=== PATIENT | male | born 1950 | race Caucasian/White ===

== ENCOUNTER 2017-10-09 15:56 | Inpatient (IN) | payer OTHER, MEDICARE ==
[2017-10-09] MEDS ORDERED: SODIUM CHLORIDE 1,000 ML IV STA ×2 (15:57→17:31)
--- NOTE | 2017-10-09 16:57 | PDOC ---
History of Present Illness - History of Present Illness Initial Comments: 10/09/17 17:00 The patient is a 66 year old male, accompanied by , with a significant past medical history of non hodgkin's lymphoma (on chemotherapy with last treatment on October 07 (2 days ago), who presents to the emergency department via walk- in with, measured fever of 102.2 F and chills beginning today. The patient states he is on his first cycle of chemotherapy and received his 3rd treatment of chemotherapy , October 07. The patient reports that yesterday he felt generally unwell all day. However, he reports that this morning he measured his temperature and noted a fever of 102.2 F. As per patients , she called the oncologist Dr. Sarath Duvall who advised the patient to come to the ED for evaluation of possible flu and for bloodwork. The patient also reports nausea for the past couple of days (denies vomiting) but reports he does not feel nauseous at presentation. Patients states she also had the flu approx. one month ago and states the patient was given some preventative medications for the flu at that time. He denies any recent headache or dizziness. He denies any recent vomit, diarrhea or constipation. He denies any recent chest pain or shortness of breath. He denies any recent dysuria, frequency, urgency or hematuria. Allergies: NKA Primary Care Physician: Dr. Rodriguez Oncologist: Dr. Sarath Duvall <Cy Fajardo - Last Filed: 10/09/17 18:38> - General History Source: Patient Exam Limitations: No Limitations <Kasey Rasheed - Last Filed: 10/11/17 08:51> - General Chief Complaint: SIRS, Suspected/Possible Stated Complaint: FEVER,CHILLS Time Seen by Provider: 10/09/17 15:57 Past History <Cy Fajardo - Last Filed: 10/09/17 18:38> - Past Medical History Anemia: No Asthma: No Cancer: Yes (lymphoma NHL) Cardiac Disorders: Yes CVA: No COPD: No CHF: No Dementia: No Diabetes: No GI Disorders: Yes (GB) Disorders: No HTN: No Hypercholesterolemia: Yes Liver Disease: No Seizures: No Thyroid Disease: No - Surgical History Abdominal Surgery: Yes (hernia repair) Cardiac Surgery: Yes (05/07 double bypass) Lung Surgery: (LYMP NODE REMOVED CHEST WALL) - Immunization History Td Vaccination: No TDAP Vaccination: No Immunization Up to Date: No - Suicide/Smoking/Psychosocial Hx Smoking History: Never smoked Have you smoked in the past 12 months: No Hx Alcohol Use: No Drug/Substance Use Hx: No Substance Use Type: None Hx Substance Use Treatment: No <WiliKasey - Last Filed: 10/11/17 08:51> - Past Medical History Allergies/Adverse Reactions: Allergies Allergy/AdvReac Type Severity Reaction Status Date / Time No Known Allergies Allergy Verified 10/09/17 15:57 Home Medications: Ambulatory Orders Aspirin [ASA -] 81 mg PO DAILY 06/07/14 Levothyroxine [Synthroid -] 100 mcg PO DAILY 10/09/17 Melatonin 5 mg PO PRN 10/09/17 Levothyroxine [Synthroid -] 100 mcg PO DAILY@0700 tablet 10/11/17 Review of Systems - Review of Systems Comments:: 10/09/17 17:00 GENERAL/CONSTITUTIONAL: (+) Fever. (+) Chills. No weakness. HEAD, EYES, EARS, NOSE AND THROAT: No change in vision. No ear pain or discharge. No sore throat. CARDIOVASCULAR: No chest pain or shortness of breath. RESPIRATORY: No cough, wheezing, or hemoptysis. GASTROINTESTINAL: (+) Nausea (resolved). No vomiting, diarrhea or constipation. GENITOURINARY: No dysuria, frequency, or change in urination. MUSCULOSKELETAL: No joint or muscle swelling or pain. No neck or back pain. SKIN: No rash NEUROLOGIC: No headache, vertigo, loss of consciousness, or change in strength/ sensation. ENDOCRINE: No increased thirst. No abnormal weight change. HEMATOLOGIC/LYMPHATIC: No anemia, easy bleeding, or history of blood clots. ALLERGIC/IMMUNOLOGIC: No hives or skin allergy. <Cy Fajardo - Last Filed: 10/09/17 18:38> *Physical Exam - Vital Signs Last Vital Signs Temp Pulse Resp BP Pulse Ox 98.5 F 69 18 116/59 97 10/09/17 15:56 10/09/17 15:56 10/09/17 15:56 10/09/17 15:56 10/09/17 15:56 - Physical Exam Comments: 10/09/17 17:00 GENERAL: Awake, alert, and fully oriented, in no acute distress HEAD: No signs of trauma EYES: PERRLA, EOMI, sclera anicteric, conjunctiva clear ENT: Auricles normal inspection, hearing grossly normal, nares patent, oropharynx clear without exudates. Moist mucosa NECK: Normal ROM, supple, no lymphadenopathy, JVD, or masses LUNGS: Breath sounds equal, clear to auscultation bilaterally. No wheezes, and no crackles HEART: Regular rate and rhythm, normal S1 and S2, no murmurs, rubs or gallops ABDOMEN: Soft, nontender, normoactive bowel sounds. No guarding, no rebound. No masses EXTREMITIES: Normal range of motion, no edema. No clubbing or cyanosis. No cords, erythema, or tenderness NEUROLOGICAL: Cranial nerves II through XII grossly intact. Normal speech, normal gait SKIN: Warm, Dry, normal turgor, no rashes or lesions noted. <Cy Fajardo - Last Filed: 10/09/17 18:38> - Vital Signs Last Vital Signs Temp Pulse Resp BP Pulse Ox 98.5 F 69 18 116/59 97 10/09/17 15:56 10/09/17 15:56 10/09/17 15:56 10/09/17 15:56 10/09/17 15:56 <Kasey Rasheed - Last Filed: 10/11/17 08:51> ED Treatment Course - LABORATORY CBC & Chemistry Diagram: 10/09/17 16:30 10/09/17 16:30 - Medications Given in the ED: ED Medications Discontinued Medications Generic Name Dose Route Start Last Admin Trade Name Freq PRN Reason Stop Dose Admin Sodium Chloride 1,000 mls @ 1,000 mls/hr 10/09/17 15:57 10/09/17 16:15 Normal Saline - IV 10/09/17 16:56 1,000 mls/hr ASDIR STA Administration <Cy Fajardo - Last Filed: 10/09/17 18:38> - LABORATORY CBC & Chemistry Diagram: 10/10/17 06:35 10/10/17 06:35 - RADIOLOGY Radiology Studies Ordered: Category Date Time Status CHEST X-RAY PORTABLE* [RAD] Stat Radiology 10/09/17 15:57 Taken <Kasey Rasheed - Last Filed: 10/11/17 08:51> Medical Decision Making - Medical Decision Making 10/09/17 17:[address] Duvall at 5:26 pm. Case discussed. Call placed to Dr. Rodriguez at 6:30 pm. Case discussed. <Cy Fajardo - Last Filed: 10/09/17 18:38> - Medical Decision Making 10/09/17 16:51 Mr Byrne is a 66 yo M with a history of NonHodgkins lymphoma currently on Galyza (Chemo) weekly (1st round s/p 3rd cycle) He presents with a complaint of fever Chills and body aches Tmax 102 10/09/17 17:12 EKG:SR, rate of 64bpm, axis nml intervals nml, no st elevation, or depression. Laboratory Tests 10/09/17 10/09/17 16:30 16:30 WBC 4.1 Hgb 15.8 Hct 46.4 Plt Count 119 L Neutrophils % 92.3 H Lymphocytes % 3.5 L Sodium 126 L Potassium 4.5 Chloride 97 L Carbon Dioxide 23 BUN 20 H Creatinine 1.0 Random Glucose 451 H* 10/09/17 17:[address] Duvall He recommends discharge to home Pt is pending UA, Urine culture CXR no consolidation Pt blood glucose elevated Pt has had labile blood sugars related to steroids 10/09/17 18:52 Laboratory Tests 10/09/17 10/09/17 10/09/17 16:30 16:30 17:30 Sodium 126 L Potassium 4.5 Chloride 97 L Carbon Dioxide 23 Anion Gap 6 L BUN 20 H Random Glucose 451 H* Lactic Acid 4.1 H* AST 800 H ALT 760 H Alkaline Phosphatase 160 H Total Protein 5.8 L Urine Blood Negative Urine Nitrite Negative Ur Leukocyte Esterase Negative LFTs doubled over the past 2 days (reviewed with Dr Duvall) Can not discharge to home Will: Start abx Admit to [facility] Case reviewed with PMD and Hospitalist Clinical Impression: Fever, initial presentation Sepsis, initial presentation <Kasey Rasheed - Last Filed: 10/11/17 08:51> *DC/Admit/Observation/Transfer - Attestations Scribe Attestion: 10/09/17 17:01 Documentation prepared by Cy Fajardo, acting as medical assistant cardiology for Kasey Rasheed MD. <Cy Fajardo - Last Filed: 10/09/17 18:38> - Discharge Dispostion Admit: Yes <Kasey Rasheed - Last Filed: 10/11/17 08:51> Diagnosis at time of Disposition: Fever Qualifiers: Fever type: drug-induced Qualified Code(s): R50.2 - Drug induced fever - Discharge Dispostion Condition at time of disposition: Stable
[2017-10-09 17:03] LABS: ACTIVATED PTT 27.8 SECONDS (24.0-38.9)
[2017-10-09 17:05] LABS: ALBUMIN 3.5 g/dl (3.5-5.0); ALK PHOS 160 U/L (32-92); ANION GAP 6 (8-16); BASO % 0.4 % (0-2.0); BILIRUBIN,TOTAL 0.9 mg/dl (0.2-1.0); BLOOD UREA NITROGEN 20 mg/dl (7-18); CALCIUM 8.7 mg/dl (8.4-10.2); CHLORIDE 97 mmol/L (98-107); CO2 23 mmol/L (22-28); EOS % 0.1 % (0-4.5); HEMATOCRIT 46.4 % (35.4-49); HEMOGLOBIN 15.8 GM/dl (11.7-16.9); LYMPH % 3.5 % (8-40); MCH 30.9 pg (25.7-33.7); MCHC 34.1 g/dl (32.0-35.9); MEAN CELL VOLUME 90.6 fl (80-96); MEAN PLT VOLUME 8.1 fl (7.5-11.1); MONO % 3.7 % (3.8-10.2); NEUT % 92.3 % (42.8-82.8); PLATELET COUNT 119 K/MM3 (134-434); POTASSIUM 4.5 mmol/L (3.5-5.1); RBC 5.12 M/mm3 (4.00-5.60); RDW 12.7 % (11.9-15.9); SODIUM 126 mmol/L (136-145); TOT PROT 5.8 g/dl (6.4-8.3); WHITE BLOOD COUNT 4.1 K/mm3 (4.0-10.8)
[2017-10-09 17:08] LABS: INR 1.21 (0.82-1.09); PROTHROMBIN TIME (PATIENT) 13.5 SEC (10.2-13.0)
[2017-10-09 17:10] LABS: GLUCOSE,RANDOM 451 mg/dl (74-106)
[2017-10-09] MEDS ORDERED: INSULIN REGULAR HUMAN 100 UNITS/ML *VIAL IVPUSH ONE (17:31)
[2017-10-09 17:33] LABS: VENOUS PC02 37.4 mmHg (38-52); VENOUS PH 7.35 (7.32-7.42); VENOUS PO2 44.8 mmHg (28-48)
[2017-10-09] MEDS ORDERED: INSULIN REGULAR HUMAN 100 UNITS/ML *VIAL ONE (17:35)
[2017-10-09 17:43] LABS: PH,URINE 5.5 (4.5-8); URINE APPEARANCE Clear; URINE BILIRUBIN Negative (NEGATIVE); URINE BLOOD Negative (NEGATIVE); URINE GLUCOSE (UA) 2+ (NEGATIVE); URINE KETONE Trace (NEGATIVE); URINE LEUK ESTERASE Negative (NEGATIVE); URINE NITRITE Negative (NEGATIVE); URINE PROTEIN Trace (NEGATIVE)
[2017-10-09 17:45] LABS: SGOT/AST 800 U/L (10-42); SGPT/ALT 760 U/L (10-40)
[2017-10-09 17:46] LABS: URINE COLOR YELLOW
[2017-10-09] MEDS ORDERED: PIPERACILLIN/TAZOB 3.375 GM/50 ML PRE-DOCKED IVPB ONE (18:56)
[2017-10-09] MEDS ORDERED: PIPERACILLIN/TAZOBACTAM 3.375 GM VIAL IVPB ONE (19:10)
[2017-10-09 20:07] LABS: ANION GAP 4 (8-16); BLOOD UREA NITROGEN 18 mg/dl (7-18); CHLORIDE 101 mmol/L (98-107); CO2 24 mmol/L (22-28); CREATININE 0.9 mg/dl (0.6-1.3); PHOSPHOROUS 3.3 mg/dl (2.5-4.6); SODIUM 129 mmol/L (136-145); URIC ACID 4.8 mg/dl (2.6-7.2)
[2017-10-09 20:11] LABS: GLUCOSE,RANDOM 332 mg/dl (74-106)
[2017-10-09 22:20] VITALS: BMI 26.6
--- NOTE | 2017-10-09 22:43 | HP ---
Admitting History and Physical - Primary Care Physician PCP: Jovany Rodriguez - Admission Chief Complaint: Fever and Chills History of Present Illness: This is a 66 y/o man with a past medical history of Non-Hodgkin's Lymphoma (on Chemo- Gazyva Infusion, last dose 10/07/17). Who presents to the [facility] ED with fever and chills. Patient reports calling his Oncologist and advised to take dexamethasone 4mg x 2 tabs this am. History Source: Patient, Family Member Limitations to Obtaining History: No Limitations - Past Medical History Cardiovascular: Yes: CAD (s/p bypass last year and stents x2), Hyperlipdemia Pulmonary: Yes: Cancer (NHL) Gastrointestinal: Yes: Other (Cholecystitis) Endocrine: Yes: Hypothyroidism Dermatology: Yes: Other ([place]) - Past Surgical History Past Surgical History: Yes: CABG, Hernia Repair (umbillical), Stent Additional Past Surgical History: Lung Sx- Lymph Node Removed (chest wall) - Smoking History Smoking history: Never smoked Have you smoked in the past 12 months: No Aproximately how many cigarettes per day: 0 - Alcohol/Substance Use Hx Alcohol Use: No History of Substance Use: reports: None - Social History Usual Living Arrangement: Yes: With Spouse ADL: Independent History of Recent Travel: No Home Medications - Allergies Allergies/Adverse Reactions: Allergies Allergy/AdvReac Type Severity Reaction Status Date / Time No Known Allergies Allergy Verified 10/09/17 15:57 - Home Medications Home Medications: Ambulatory Orders Aspirin [ASA -] 81 mg PO DAILY 06/07/14 Levothyroxine [Synthroid -] 100 mcg PO DAILY 10/09/17 Melatonin 5 mg PO PRN 10/09/17 Metformin HCl 750 mg PO BID 10/09/17 Family Disease History - Family Disease History Family History: Unable to Obtain Review of Systems - Review of Systems Constitutional: reports: Chills, Fever Eyes: reports: No Symptoms HENT: reports: No Symptoms Neck: reports: No Symptoms Cardiovascular: reports: No Symptoms Respiratory: reports: No Symptoms Gastrointestinal: reports: No Symptoms Genitourinary: reports: No Symptoms Breasts: reports: No Symptoms Reported Musculoskeletal: reports: No Symptoms Integumentary: reports: No Symptoms Neurological: reports: No Symptoms Endocrine: reports: No Symptoms Hematology/Lymphatic: reports: No Symptoms Psychiatric: reports: No Symptoms Physical Examination Vital Signs: Vital Signs Temperature 97.8 F 10/09/17 21:46 Pulse Rate 73 10/09/17 21:46 Respiratory Rate 18 10/09/17 21:46 Blood Pressure 146/72 10/09/17 21:46 O2 Sat by Pulse Oximetry (%) 97 10/09/17 20:05 Constitutional: Yes: Well Nourished, No Distress, Calm Eyes: Yes: WNL, Conjunctiva Clear, EOM Intact, PERRL HENT: Yes: WNL, Atraumatic, Normocephalic Neck: Yes: WNL, Supple, Trachea Midline Cardiovascular: Yes: WNL, Regular Rate and Rhythm, S1, S2 Respiratory: Yes: WNL, Regular, CTA Bilaterally Gastrointestinal: Yes: WNL, Normal Bowel Sounds, Soft Renal/: Yes: WNL Breast(s): Yes: WNL Musculoskeletal: Yes: WNL Extremities: Yes: WNL Edema: No Peripheral Pulses WNL: Yes Neurological: Yes: WNL, Alert, Oriented ...Motor Strength: WNL Psychiatric: Yes: WNL, Alert, Oriented Labs: CBC, BMP 10/09/17 16:30 10/09/17 19:44 Laboratory Results - last 24 hr 10/09/17 10/09/17 10/09/17 16:30 16:30 16:30 WBC 4.1 RBC 5.12 Hgb 15.8 Hct 46.4 MCV 90.6 MCH 30.9 MCHC 34.1 RDW 12.7 Plt Count 119 L MPV 8.1 Neutrophils % 92.3 H Lymphocytes % 3.5 L Monocytes % 3.7 L Eosinophils % 0.1 Basophils % 0.4 PT with INR 13.5 H INR 1.21 PTT (Actin FS) 27.8 VBG pH 7.35 POC VBG pCO2 37.4 L POC VBG pO2 44.8 Mixed VBG HCO3 20.2 Sodium Potassium Chloride Carbon Dioxide Anion Gap BUN Creatinine Creat Clearance w eGFR Random Glucose Lactic Acid Uric Acid Calcium Phosphorus Total Bilirubin AST ALT Alkaline Phosphatase Total Protein Albumin Urine Color Urine Appearance Urine pH Ur Specific [place] Urine Protein Urine Glucose (UA) Urine Ketones Urine Blood Urine Nitrite Urine Bilirubin Urine Urobilinogen Ur Leukocyte Esterase 10/09/17 10/09/17 10/09/17 16:30 16:30 17:30 WBC RBC Hgb Hct MCV MCH MCHC RDW Plt Count MPV Neutrophils % Lymphocytes % Monocytes % Eosinophils % Basophils % PT with INR INR PTT (Actin FS) VBG pH POC VBG pCO2 POC VBG pO2 Mixed VBG HCO3 Sodium 126 L Potassium 4.5 Chloride 97 L Carbon Dioxide 23 Anion Gap 6 L BUN 20 H Creatinine 1.0 Creat Clearance w eGFR > 60 Random Glucose 451 H* Lactic Acid 4.1 H* Uric Acid Calcium 8.7 Phosphorus Total Bilirubin 0.9 AST 800 H ALT 760 H Alkaline Phosphatase 160 H Total Protein 5.8 L Albumin 3.5 Urine Color Yellow Urine Appearance Clear Urine pH 5.5 Ur Specific [place] 1.020 Urine Protein Trace Urine Glucose (UA) 2+ H Urine Ketones Trace Urine Blood Negative Urine Nitrite Negative Urine Bilirubin Negative Urine Urobilinogen 1.0 Ur Leukocyte Esterase Negative 10/09/17 10/09/17 19:44 19:44 WBC RBC Hgb Hct MCV MCH MCHC RDW Plt Count MPV Neutrophils % Lymphocytes % Monocytes % Eosinophils % Basophils % PT with INR INR PTT (Actin FS) VBG pH POC VBG pCO2 POC VBG pO2 Mixed VBG HCO3 Sodium 129 L Potassium 4.0 Chloride 101 Carbon Dioxide 24 Anion Gap 4 L BUN 18 Creatinine 0.9 Creat Clearance w eGFR Random Glucose 332 H* D Lactic Acid 3.2 H* Uric Acid 4.8 Calcium 8.0 L Phosphorus 3.3 Total Bilirubin AST ALT Alkaline Phosphatase Total Protein Albumin Urine Color Urine Appearance Urine pH Ur Specific [place] Urine Protein Urine Glucose (UA) Urine Ketones Urine Blood Urine Nitrite Urine Bilirubin Urine Urobilinogen Ur Leukocyte Esterase Intake & Output 10/07/17 10/08/17 10/09/17 10/10/17 23:59 23:59 23:59 23:59 Intake Total 2100 Balance 2100 Weight 84.17 kg Current Medications Generic Name Dose Route Start Last Admin Trade Name Freq PRN Reason Stop Dose Admin Aspirin 81 mg 10/10/17 10:00 Asa - PO DAILY ROSLYN Sodium Chloride 1,000 mls @ 42 mls/hr 10/10/17 00:30 10/10/17 00:39 Normal Saline - IV 42 mls/hr ASDIR ROSLYN Administration Levothyroxine Sodium 100 mcg 10/10/17 07:00 Synthroid - PO DAILY@0700 ROSLYN Melatonin 5 mg 10/09/17 22:43 10/09/17 23:31 Melatonin PO 5 mg HS PRN Administration insomnia Imaging - Results Chest X-ray: Image Reviewed EKG: Report Reviewed (NSR, inferior infarct age undetermined QT/QTc 412/425) Problem List - Problems (1) Fever Code(s): R50.9 - FEVER, UNSPECIFIED Qualifiers: Fever type: unspecified Qualified Code(s): R50.9 - Fever, unspecified (2) Abnormal liver enzymes Code(s): R74.8 - ABNORMAL LEVELS OF OTHER SERUM ENZYMES (3) Non-Hodgkin lymphoma of intrathoracic lymph nodes Code(s): C85.92 - NON-HODGKIN LYMPHOMA, UNSPECIFIED, INTRATHORACIC LYMPH NODES (4) HTN (hypertension) Code(s): I10 - ESSENTIAL (PRIMARY) HYPERTENSION (5) Hx of CABG Code(s): Z95.1 - PRESENCE OF AORTOCORONARY BYPASS GRAFT (6) S/P CABG (coronary artery bypass graft) Code(s): Z95.1 - PRESENCE OF AORTOCORONARY BYPASS GRAFT (7) DVT prophylaxis Code(s): OCD9588 - Assessment/Plan This is a 66 y/o man with Non-Hodgkin's Lymphoma, HLD, GI( Cholecystitis), Hypothyroid. Admitted for Fever of Unknown Source, Hyponatremia, Transaminitis, Lactic Acidemia. Plan: 1. Fever - unknown source - Blood Cultures pending - Urine Culture pending - No WBC 2/2 NHL, +Neutrophilia, +LA - NS fluid bolus x2 given in ED - Treated empirically with Zosyn in ED, will continue - Appreciate ID Consult - Monitor CBC, BMP - Monitor vitals 2. Hyponatremia - NS bolus x2 given in ED - Na Deficit 571.2 meq - Continue D5NS - BMP Q4h 3. Transaminitis - Likely secondary to Chemo - T Bili- wnl - Patient denies abdominal pain - Will trend LFTs - Consider GI consult if condition worsens 4. Lactic Acidemia - Hold Metformin - Fluid Resuscitation give in ED - Repeat LA in am - Continue IVF - Monitor vitals 5. NHL - s/p Chemo Gazyva Infusion - Appreciate Oncology consult 6. FEN - D5NS@42ml/hr - Replete Na - Low Cholesterol Diet 7. DVT ppx - SCDs - Lovenox SQ Code Status: Dispo: Requires Inpatient Care Visit type - Emergency Visit Emergency Visit: Yes ED Registration Date: 10/09/17 Care time: The patient presented to the Emergency Department on the above date and was hospitalized for further evaluation of their emergent condition. - New Patient This patient is new to me today: Yes Date on this admission: 10/09/17 - Critical Care Critical Care patient: No Hospitalist Screening - Colonoscopy Questionnaire Colonoscopy Questionnaire: Colonoscopy Questionnaire - Patient: 50 - 75 years old and never had a screening colonoscopy: No History of colon or rectal polyps, or CA: No History of IBD, Crohn's disease or UC: No History of abdominal radiation therapy as a child: No - Relative: 1 with colon or rectal CA, or polyps at age 60 or younger: No Colon or rectal CA diagnosed at age 45 or younger: No Multiple relatives with colon or rectal CA: No - Outcome: Screening Result: Negative Screen
[2017-10-09] MEDS ORDERED: DEXTROSE 5%-NORMAL SALINE 1,000 ML IV SCH (23:15)
[2017-10-09] MEDS: MELATONIN 5 MG TABLETS PO PRN (23:31)
[2017-10-10] MEDS ORDERED: INSULIN (NOVOLOG) ASPART 100 UNITS/ML 10ML VIAL SQ ONE (00:18)
[2017-10-10] MEDS ORDERED: SODIUM CHLORIDE 1,000 ML IV SCH (00:30)
[2017-10-10 02:35] LABS: ANION GAP 11 (8-16); BLOOD UREA NITROGEN 20 mg/dL (7-18); CHLORIDE 101 mmol/L (98-107); CO2 24 mmol/L (21-32); CREATININE 1.1 mg/dL (0.7-1.3); POTASSIUM 3.9 mmol/L (3.5-5.1); SODIUM 136 mmol/L (136-145)
[2017-10-10 02:36] LABS: GLUCOSE,RANDOM 419 mg/dL (74-106)
[2017-10-10] MEDS: LEVOTHYROXINE NA 100 MCG TABLET (FP) PO SCH (06:13)
[2017-10-10 07:59] LABS: BASO % 0.2 % (0-2.0); EOS % 0.1 % (0-4.5); HEMOGLOBIN 14.5 GM/dL (11.7-16.9); LYMPH % 8.1 % (8-40); MCH 31.2 pg (25.7-33.7); MCHC 33.8 g/dl (32.0-35.9); MEAN CELL VOLUME 92.5 fl (80-96); MEAN PLT VOLUME 8.2 fl (7.5-11.1); MONO % 12.2 % (3.8-10.2); NEUT % 79.4 % (42.8-82.8); PLATELET COUNT 98 K/MM3 (134-434); RBC 4.65 M/mm3 (4.00-5.60); RDW 13.4 % (11.9-15.9); WHITE BLOOD COUNT 4.4 K/mm3 (4.0-10.0)
[2017-10-10 08:11] LABS: ANION GAP 7 (8-16); BLOOD UREA NITROGEN 20 mg/dL (7-18); CALCIUM 7.8 mg/dL (8.5-10.1); CHLORIDE 102 mmol/L (98-107); CO2 27 mmol/L (21-32); CREATININE 0.9 mg/dL (0.7-1.3); GLUCOSE,RANDOM 285 mg/dL (74-106); POTASSIUM 3.7 mmol/L (3.5-5.1); SODIUM 136 mmol/L (136-145)
--- NOTE | 2017-10-10 08:18 | PN ---
Progress Note (short form) - Note Progress Note: ID Full note dictated this 66 year old [place]ian male with long history of NHL again recurrent admitted with severe shaking chills and fever started yesterday. On a new biologic begun 3 weeks ago Gazyva and afater the first dose severe rigors needed Benadryl and steroids to treat. Last dose 5 days ago tolerated better however yesterday onset of chills this time fever too. No other respiratory complaints Influenza in his household recent past. No history of TB Microbiology Selected Entries 10/10/17 04:00 Temperature 97.9 F Pulse Rate 56 L Respiratory 18 Rate Blood Pressure 143/76 Laboratory Tests 10/09/17 10/09/17 10/09/17 16:30 16:30 16:30 WBC 4.1 Hgb 15.8 Hct 46.4 Plt Count 119 L Random Glucose 451 H* Lactic Acid 4.1 H* ALT 760 H Total Protein 5.8 L Albumin 3.5 Assessment Given how well patient appears now I have to consider the possibility of a drug reaction to his biologic. His blood cultures are neg this am albeit early. Elevated LFTs noted but he says this is not new fatty liver vs lymphoma ( had liver biopsy) His abd benign hyperglycemia and hyponatremia noted. Lactic acid up Plan Given how well he looks now I am inclined to observe off antibiotics especially as is prelim blood cultures this am no growth I do not think he has the beverly Ivy MD Problem List - Problems (1) Abnormal liver enzymes Code(s): R74.8 - ABNORMAL LEVELS OF OTHER SERUM ENZYMES (2) Fever in adult Code(s): R50.9 - FEVER, UNSPECIFIED (3) Non-Hodgkin lymphoma Code(s): C85.90 - NON-HODGKIN LYMPHOMA, UNSPECIFIED, UNSPECIFIED SITE
[2017-10-10] MEDS: ASPIRIN 81 MG CHEWABLE TABLETS PO SCH (10:58)
--- NOTE | 2017-10-10 12:31 | CONS ---
DATE OF CONSULTATION: DATE OF DICTATION: 10/10/2017 This is a 66-year-old male with a long history of non-Hodgkin lymphoma, who I am asked to evaluate for abrupt onset of fever and chills, which began yesterday. The patient has a long history of non-Hodgkin lymphoma dating back many years, for which he has been previously treated with Rituxan in the distant past. More recently, he had a PET scan, which documented recurrence of lymphoma, for which he was started on a biologic agent 3 weeks ago, Gazyva. He is admitted now after developing abrupt onset of fever and chills approximately 5 days after his 3rd dose of this chemo. After the first dose, he experienced abrupt onset of fevers and shaking chills. For the second dose, he was apparently premedicated with Benadryl and steroids and noted that he tolerated the medication much better. He has an in-law as well as his who were recently treated for the flu. The patient denies any headaches, sore throat, coryza, cough, body aches, abdominal pain, or urinary complaints. He was given empiric antibiotics in the emergency room and had been advised by his oncologist, who we spoke to, to take dexamethasone. This morning, he feels perfectly well. He is in no distress. The patient is diabetic, and when he came to the emergency room, his blood sugar was over 400 and he was noted to be hyponatremic. His liver enzymes, particularly transaminases, were markedly elevated, but the patient says this has been a longstanding issue for which he has had extensive hepatology evaluation including a liver biopsy, and was told that he had a fatty liver. Past medical history includes coronary artery disease, non-Hodgkin lymphoma, status post cholecystectomy, hypothyroidism, history of Kaposi's sarcoma, umbilical hernia repair, and coronary artery bypass graft surgery. MEDICATIONS AT HOME: Aspirin, levothyroxine, melatonin, and metformin. ALLERGY HISTORY: None known. SOCIAL HISTORY: , an [place] immigrant who came to this country when he was 22 and worked for most of his career at [employer]. He does not smoke nor does he drink alcohol or use drugs. FAMILY HISTORY: Noncontributory. REVIEW OF SYSTEMS: Respiratory: No cough, shortness of breath. Cardiac: No chest pain, palpitations, syncope. Gastrointestinal: No abdominal pain, nausea, vomiting, diarrhea. Genitourinary: No dysuria, hematuria, urinary frequency. PHYSICAL EXAMINATION: General: He was an alert male in no acute distress. Vital Signs: Temperature was 97.9, pulse 56, blood pressure 143/76, respirations 18. HEENT: The pharynx was benign without exudate or thrush. Neck: Supple. Lungs: Clear to P&A. Heart: S1, S2. Regular rhythm without murmur. Abdomen: Soft and nontender without hepatosplenomegaly. Extremities: No clubbing, cyanosis or edema. Skin: No rash. White count 4.1, hemoglobin 15.8, platelets 119, with 92% polys. BUN 20, creatinine 1.0, glucose on admission 451, sodium 126, potassium 4.5, AST 800, ALT 760, alkaline phosphatase 160. Urinalysis: Negative leukocyte esterase. Chest x-ray was reviewed, shows no evidence of acute infiltrate. ASSESSMENT: A 66-year-old male with long history of non-Hodgkin lymphoma, now with recurrent lymphoma, status post new treatment, biologic, with Gazyva, a history of severe drug reaction to his initial dose of this new agent, presents now 5 days after his third dose of the same chemotherapy, with similar symptomatology, only he says he has fever, although this was not documented here. He has no other localizing complaints to suggest influenza-like illness and no obvious source of infection on his examination. Moreover, since admission, in this short time, he appears dramatically improved. His blood sugar was out of control on admission and he was noted to be hyponatremic. His liver enzymes are elevated but this may be at least partially chronic and exacerbated by his recent chemotherapy. For now, I am inclined to observe him off all antibiotics, in part knowing that this blood cultures, preliminary this morning, are no growth. He appears well, and would observe for the time being and await further recommendations from both his primary care as well as his oncologist. KRISTIN LUNDBERG M.D. [id number]
[2017-10-10] MEDS: INSULIN SLIDING SCALE (NOVOLOG) 1 VIAL SQ SCH ×3 (12:52→22:20)
--- NOTE | 2017-10-10 13:13 | PN ---
Progress Note (short form) - Note Progress Note: Subjective: The patient was seen and examined at the bedside, he states he is feeling better, denies any fever or chills Current Medications Generic Name Dose Route Start Last Admin Trade Name Booker PRN Reason Stop Dose Admin Aspirin 81 mg 10/10/17 10:00 10/10/17 10:58 Asa - PO 81 mg DAILY ROSLYN Administration Insulin Aspart 1 vial 10/10/17 11:00 10/10/17 12:52 Novolog Vial Sliding Scale - SQ 10 units ACHS ROSLYN Administration Protocol Levothyroxine Sodium 100 mcg 10/10/17 07:00 10/10/17 06:13 Synthroid - PO 100 mcg DAILY@0700 ROSLYN Administration Melatonin 5 mg 10/09/17 22:43 10/09/17 23:31 Melatonin PO 5 mg HS PRN Administration insomnia Objective: Vital Signs Period Temp Pulse Resp BP Sys/[place]era Pulse Ox Last 24 Hr 97.8 F-98.5 F 51-73 16-18 116-146/59-80 96-97 Physical Exam: General: NAD, A&Ox3 Lungs: CTA bilaterally Heart: RRR, S1S2 Abd: Soft, non-tender, non-distended. Normoactive bowel sounds Ext: Warm, well-perfused. 2+ DP/PT bilaterally Neuro: CN 2-12 intact CBCD WBC 4.4 K/mm3 (4.0-10.0) D 10/10/17 06:35 RBC 4.65 M/mm3 (4.00-5.60) D 10/10/17 06:35 Hgb 14.5 GM/dL (11.7-16.9) D 10/10/17 06:35 Hct 43.0 % (35.4-49) D 10/10/17 06:35 MCV 92.5 fl (80-96) 10/10/17 06:35 MCHC 33.8 g/dl (32.0-35.9) 10/10/17 06:35 RDW 13.4 % (11.9-15.9) D 10/10/17 06:35 Plt Count 98 K/MM3 (134-434) L D 10/10/17 06:35 MPV 8.2 fl (7.5-11.1) D 10/10/17 06:35 CMP Sodium 136 mmol/L (136-145) 10/10/17 06:35 Potassium 3.7 mmol/L (3.5-5.1) 10/10/17 06:35 Chloride 102 mmol/L (98-107) 10/10/17 06:35 Carbon Dioxide 27 mmol/L (21-32) 10/10/17 06:35 Anion Gap 7 (8-16) L 10/10/17 06:35 BUN 20 mg/dL (7-18) H 10/10/17 06:35 Creatinine 0.9 mg/dL (0.7-1.3) 10/10/17 06:35 Creat Clearance w eGFR > 60 (>60) 10/09/17 16:30 Random Glucose 285 mg/dL (74-106) H D 10/10/17 06:35 Calcium 7.8 mg/dL (8.5-10.1) L 10/10/17 06:35 Total Bilirubin 0.9 mg/dl (0.2-1.0) 10/09/17 16:30 AST 800 U/L (10-42) H 10/09/17 16:30 ALT 760 U/L (10-40) H 10/09/17 16:30 Alkaline Phosphatase 160 U/L (32-92) H 10/09/17 16:30 Total Protein 5.8 g/dl (6.4-8.3) L 10/09/17 16:30 Albumin 3.5 g/dl (3.5-5.0) 10/09/17 16:30 Assessment: This is a 66 year old male with PMHx of non-hodgkin's lymphona ( last chemo 10/07/17), chronic elevation in liver enzymes, hypothyroidism, CAD s/ p stents, hyperlipidemia, who presented to the ED with chill and fever Plan: 1) Fever, chills, lactic acidosis - Do not appear to have the flu - Observe off abx - Trend lactic acid: per Dr. Duvall, patient does not have elevated lactic acid 2/2 malignancy as outpatient - UA negative - F/u blood cultures - Appreciate ID consult 2) Elevated AST, ALT, Alk phos - May be 2/2 Gazyva - Has had liver biopsy in past that showed no lymphoma of the liver - Continue to trend, f/u outpatient liver specialist 3) Hypothyroidism - Continue synthroid 4) DM - Hold Metformin - BGM ACHS - ISS ACHS 5) F/E/N: - Monitor electrolytes - Diabetic diet 6) Prophylaxis: - OOB ambulating - Hold all chemical DVT prophylaxis / thrombocytopenia 7) Dispo: - Requires continued inpatient care CODE STATUS: FULL CODE Visit type - Emergency Visit Emergency Visit: Yes ED Registration Date: 10/09/17 Care time: The patient presented to the Emergency Department on the above date and was hospitalized for further evaluation of their emergent condition. - New Patient This patient is new to me today: Yes Date on this admission: 10/10/17 - Critical Care Critical Care patient: No
[2017-10-10] MEDS ORDERED: SODIUM CHLORIDE 1,000 ML IV STA (15:59)
[2017-10-10] MEDS: MELATONIN 5 MG TABLETS PO PRN (22:20)
--- NOTE | 2017-10-11 00:11 | EKG ---
Test Reason : Blood Pressure : / mmHG Vent. Rate : 064 BPM Atrial Rate : 064 BPM P-R Int : 180 ms QRS Dur : 082 ms QT Int : 412 ms P-R-T Axes : 018 -13 004 degrees QTc Int : 425 ms NORMAL SINUS RHYTHM INFERIOR INFARCT , AGE UNDETERMINED ABNORMAL ECG WHEN COMPARED WITH ECG OF 14-JUN-2014 08:48, INFERIOR INFARCT IS NOW PRESENT Confirmed by GLENROY HARVEY, JOSUE ([id number]) on 10/11/2017 12:11:22 AM Referred By: ARBEN TRIVEDI Confirmed By:JOSUE TIM MD
[2017-10-11] MEDS: LEVOTHYROXINE NA 100 MCG TABLET (FP) PO SCH (06:15)
[2017-10-11] MEDS: INSULIN SLIDING SCALE (NOVOLOG) 1 VIAL SQ SCH ×2 (06:16→12:02)
--- NOTE | 2017-10-11 08:11 | PN ---
Progress Note, Physician Chief Complaint: 66 y.o M was transferred from [facility] where he presented on 10/09 with chills, rigors, home oral T102.2F. The parient was receiving 3rd course of chemotherapy for his NHL 2 days BR[facility]DER. 2 other courses were also accociated with chills rigors In [facility] -high Lactic noted, Metformin was stopped and after Bld Cx ABX started. Abx were D/C by ID. Blood cx are negative to date, the patient remains afebrile. His High BGM were Rx with Insulin. History of Present Illness: NHL-PET/CT repeated showed recurrence of NHL . On Chemo, steroids, Previous DVT DM type 2 Gradually increasing ALT/AST-s/p biopsy. KS on LE CABG x2, stents. US -thickened GB, sludge. S/P CABG Hypothyroidism - Current Medication List Current Medications: Active Medications Aspirin (Asa -) 81 mg PO DAILY [facility] Last Admin: 10/10/17 10:58 Dose: 81 mg Insulin Aspart (Novolog Vial Sliding Scale -) 1 vial SQ ACHS [facility] PRN Reason: Protocol Last Admin: 10/11/17 06:16 Dose: 2 units Levothyroxine Sodium (Synthroid -) 100 mcg PO DAILY@0700 [facility] Last Admin: 10/11/17 06:15 Dose: 100 mcg Melatonin (Melatonin) 5 mg PO HS PRN PRN Reason: insomnia Last Admin: 10/10/17 22:20 Dose: 5 mg Sitagliptin Phosphate (Januvia -) 100 mg PO DAILY@0700 [facility] - Objective Vital Signs: Vital Signs Temperature 98.9 F 10/11/17 05:00 Pulse Rate 50 L 10/11/17 05:00 Respiratory Rate 20 10/11/17 05:00 Blood Pressure 130/78 10/11/17 05:00 O2 Sat by Pulse Oximetry (%) 95 10/10/17 21:00 Constitutional: Yes: No Distress, Anxious Eyes: Yes: Conjunctiva Clear, EOM Intact HENT: Yes: Atraumatic, Normocephalic Neck: Yes: Supple, Trachea Midline Cardiovascular: Yes: Regular Rate and Rhythm. No: Bradycardia, Tachycardia Respiratory: Yes: Regular, CTA Bilaterally Gastrointestinal: Yes: Normal Bowel Sounds, Soft, Hepatomegaly (2 cm below costal margin). No: Abdomen, Obese, Ascites, Hypoactive Bowel Sounds, Melena, Palpable Mass, Tenderness, Tenderness, Epigastrium, Vomiting ...Rectal Exam: Yes: Deferred Genitourinary: Yes: Other (small inguinal LN) Breast(s): Yes: WNL Extremities: Yes: Other (KS lesions on both LE) Edema: No Peripheral Pulses WNL: Yes Neurological: Yes: Alert, Oriented ...Motor Strength: WNL Psychiatric: Yes: WNL Labs: CBC, BMP 10/10/17 06:35 10/10/17 06:35 INR, PTT INR 1.21 (0.82-1.09) 10/09/17 16:30 Laboratory Results - last 24 hr 10/10/17 10/10/17 10/10/17 06:35 06:35 11:54 Sodium 136 Potassium 3.7 Chloride 102 Carbon Dioxide 27 Anion Gap 7 L BUN 20 H Creatinine 0.9 POC Glucometer 347 Random Glucose 285 H D Lactic Acid 3.3 H* Calcium 7.8 L 10/10/17 10/10/17 10/10/17 14:40 17:27 19:00 Sodium Potassium Chloride Carbon Dioxide Anion Gap BUN Creatinine POC Glucometer 364 Random Glucose Lactic Acid 3.3 H* 2.7 H* Calcium 10/10/17 22:17 Sodium Potassium Chloride Carbon Dioxide Anion Gap BUN Creatinine POC Glucometer 338 Random Glucose Lactic Acid Calcium Problem List - Problems (1) Fever Assessment/Plan: Reaction to chemoRx. Quickly resolved.D/C metformin start Januvia. Will follow with onc Elevated Lactic-but negative Bld cx. No infection. Code(s): R50.9 - FEVER, UNSPECIFIED Qualifiers: Fever type: drug-induced Qualified Code(s): R50.2 - Drug induced fever (2) Abnormal liver enzymes Assessment/Plan: NHL involvment of the liver, previous PANIAGUA. Code(s): R74.8 - ABNORMAL LEVELS OF OTHER SERUM ENZYMES (3) DM type 2 (diabetes mellitus, type 2) Assessment/Plan: Januvia PO Will follow in the office. S/C Insulin after steroidal use Code(s): E11.9 - TYPE 2 DIABETES MELLITUS WITHOUT COMPLICATIONS Qualifiers: Diabetes mellitus technician terminal and repeater insulin use: without chcf use
--- NOTE | 2017-10-11 08:26 | DS ---
Physical Examination Vital Signs: Vital Signs Temperature 98.9 F 10/11/17 05:00 Pulse Rate 50 L 10/11/17 05:00 Respiratory Rate 20 10/11/17 05:00 Blood Pressure 130/78 10/11/17 05:00 O2 Sat by Pulse Oximetry (%) 95 10/10/17 21:00 Constitutional: Yes: No Distress, Anxious Eyes: Yes: Conjunctiva Clear, EOM Intact HENT: Yes: Atraumatic, Normocephalic Neck: Yes: Supple, Trachea Midline Cardiovascular: Yes: Regular Rate and Rhythm. No: Bradycardia, Tachycardia Gastrointestinal: Yes: Normal Bowel Sounds, Hepatomegaly (2 cm) ...Rectal Exam: Yes: Deferred Renal/: No: Anuria Breast(s): Yes: WNL Extremities: Yes: Other (KS lesions) Peripheral Pulses WNL: No Neurological: Yes: WNL, Alert, Oriented ...Motor Strength: WNL Labs: CBC, BMP 10/10/17 06:35 10/10/17 06:35 Discharge Summary Reason For Visit: FEVER,CHILLS Current Active Problems DM type 2 (diabetes mellitus, type 2) (Acute) DVT prophylaxis (Acute) Fever (Acute) Condition: Stable - Instructions Referrals: Jovany Rodriguez MD [Primary Care Provider] - - Home Medications Comprehensive Discharge Medication List: Ambulatory Orders Aspirin [ASA -] 81 mg PO DAILY 06/07/14 Levothyroxine [Synthroid -] 100 mcg PO DAILY 10/09/17 Melatonin 5 mg PO PRN 10/09/17 Metformin HCl 750 mg PO BID 10/09/17
[2017-10-11] MEDS: ASPIRIN 81 MG CHEWABLE TABLETS PO SCH (10:14)
--- NOTE | 2017-10-11 10:44 | PN ---
Progress Note, Physician Chief Complaint: ID Asymptomatic and afebrile Offers no complaints - Current Medication List Current Medications: Active Medications Aspirin (Asa -) 81 mg PO DAILY [facility] Last Admin: 10/11/17 10:14 Dose: 81 mg Insulin Aspart (Novolog Vial Sliding Scale -) 1 vial SQ ACHS [facility] PRN Reason: Protocol Last Admin: 10/11/17 06:16 Dose: 2 units Levothyroxine Sodium (Synthroid -) 100 mcg PO DAILY@0700 [facility] Last Admin: 10/11/17 06:15 Dose: 100 mcg Melatonin (Melatonin) 5 mg PO HS PRN PRN Reason: insomnia Last Admin: 10/10/17 22:20 Dose: 5 mg Sitagliptin Phosphate (Januvia -) 100 mg PO DAILY@0700 [facility] - Objective Vital Signs: Vital Signs Temperature 98.9 F 10/11/17 05:00 Pulse Rate 50 L 10/11/17 05:00 Respiratory Rate 20 10/11/17 05:00 Blood Pressure 130/78 10/11/17 05:00 O2 Sat by Pulse Oximetry (%) 95 10/10/17 21:00 Labs: CBC, BMP 10/10/17 06:35 10/10/17 06:35 INR, PTT INR 1.21 (0.82-1.09) 10/09/17 16:30 Problem List - Problems (1) Abnormal liver enzymes Code(s): R74.8 - ABNORMAL LEVELS OF OTHER SERUM ENZYMES (2) Fever in adult Code(s): R50.9 - FEVER, UNSPECIFIED (3) Non-Hodgkin lymphoma Code(s): C85.90 - NON-HODGKIN LYMPHOMA, UNSPECIFIED, UNSPECIFIED SITE Assessment/Plan Microbiology 10/09/17 17:30 Urine - Urine Clean Catch Urine Culture - Final NO GROWTH OBTAINED 10/09/17 17:30 Blood - Peripheral Venous Blood Culture - Preliminary NO GROWTH OBTAINED AFTER 24 HOURS, INCUBATION TO CONTINUE FOR 4 DAYS. 10/09/17 17:30 Blood - Peripheral Venous Blood Culture - Preliminary NO GROWTH OBTAINED AFTER 24 HOURS, INCUBATION TO CONTINUE FOR 4 DAYS. Laboratory Tests 10/10/17 10/10/17 10/10/17 06:35 06:35 14:40 WBC 4.4 D Plt Count 98 L D Lactic Acid 3.3 H* 3.3 H* 10/10/17 19:00 WBC Plt Count Lactic Acid 2.7 H* Assessment Drug reaction suspected Cultures no growth feels well ( lactic acid noted ? unclear why) Plan Spoke with oncology ok wit discharge and outpt follow up Cata HARVEY
[2017-10-11 14:29] VITALS: BP 146/77; PULSE 60; TEMP 98.4
[2017-10-12] MEDS ORDERED: sitaGLIPtin PHOSPHATE 100 MG TABLET (FP) PO SCH (07:00)
== END 2017-10-11 12:53 | disposition home or self-care (01) | DRG 864 ==
LOC: FER 15:56 → SUPCPDRO 15:56 → J7W 21:46
PROVIDERS: ADMIT Internal Medicine; ATTEND Internal Medicine
DX: R50.2 Drug induced fever (principal); C85.92 Non-Hodgkin lymphoma, unspecified, intrathoracic lymph nodes; E87.1 Hypo-osmolality and hyponatremia; E87.2 Acidosis; I10 Essential (primary) hypertension; Z95.1 Presence of aortocoronary bypass graft; E78.5 Hyperlipidemia, unspecified; E03.9 Hypothyroidism, unspecified; R74.0 Nonspecific elevation of levels of transaminase and lactic acid dehydrogenase [LDH]; R74.8 Abnormal levels of other serum enzymes; E11.9 Type 2 diabetes mellitus without complications; Z79.84 Long term (current) use of oral hypoglycemic drugs; I25.10 Atherosclerotic heart disease of native coronary artery without angina pectoris; D69.6 Thrombocytopenia, unspecified; T45.1X5A Adverse effect of antineoplastic and immunosuppressive drugs, initial encounter
CPT/HCPCS: 36415; 71045-TC-FY; 80048; 80053; 81003; 82803; 82962; 83605; 84100; 84550; 85025; 85610; 85730; 87040; 87086; 93005; 99283-25; J7030

== ENCOUNTER 2017-12-16 17:54 | Inpatient (IN) | payer OTHER, MEDICARE ==
--- NOTE | 2017-12-16 18:12 | PDOC ---
*Physical Exam - Vital Signs Last Vital Signs Temp Pulse Resp BP Pulse Ox 103 F H 79 20 157/70 97 12/16/17 17:58 12/16/17 17:58 12/16/17 17:58 12/16/17 17:58 12/16/17 17:58 - Physical Exam Comments: 12/16/17 18:11 GENERAL: Awake, alert, and fully oriented, in no acute distress HEAD: No signs of trauma, normocephalic, atraumatic EYES: PERRLA, EOMI, sclera anicteric, conjunctiva clear ENT: Auricles normal inspection, hearing grossly normal, nares patent, oropharynx clear without exudates. Moist mucosa NECK: Normal ROM, supple, no lymphadenopathy, JVD, or masses LUNGS: No distress, speaks full sentences, clear to auscultation bilaterally HEART: Regular rate and rhythm, normal S1 and S2, no murmurs, rubs or gallops, peripheral pulses normal and equal bilaterally. ABDOMEN: Soft, nontender, normoactive bowel sounds. No guarding, no rebound. No masses EXTREMITIES : Normal inspection, Normal range of motion, no edema. No clubbing or cyanosis. NEUROLOGICAL: Cranial nerves II through XII grossly intact. Normal speech, normal gait, no focal sensorimotor deficits SKIN: Warm, Dry, normal turgor, no rashes or lesions noted <Jon Apple - Last Filed: 12/16/17 18:42> - Vital Signs Last Vital Signs Temp Pulse Resp BP Pulse Ox 103 F H 79 20 157/70 97 12/16/17 17:58 12/16/17 17:58 12/16/17 17:58 12/16/17 17:58 12/16/17 17:58 <Payam Moreno - Last Filed: 12/16/17 18:55> - Vital Signs Last Vital Signs Temp Pulse Resp BP Pulse Ox 103 F H 79 20 157/70 97 12/16/17 17:58 12/16/17 17:58 12/16/17 17:58 12/16/17 17:58 12/16/17 17:58 <Yon Collins - Last Filed: 12/16/17 19:09> Medical Decision Making - Medical Decision Making 12/16/17 18:11 67 yo M with h/o NHL (1st cycle 4th round chemotherapy/Gazyva transfusion ), Kaposi Sarcoma, transaminitis, NIDDM, HLD, CAD, CABG who p/w fever following d/c from [place] [facility] earlier this afternoon (12-16-17). Temp 1003, elevated fom 100.5 while in ED earlier today, vtials otherwise wnl, A&OX3. Possible neutropenic fever. Currently no other complaints. Dr. Sarath Duvall oncologist and PMD Dr. Rodriguez. Patient given 750 mg oral Levaquin on earlier ED encounter. WBC: 1.5, Neutrophils 73.9, Lactic Acid 2.7. ED Course: Plan to admit to hospital for neutropenic fever. <Jon Apple - Last Filed: 12/16/17 18:42> *DC/Admit/Observation/Transfer - Discharge Dispostion Decision to Admit order: Yes <Jon Apple - Last Filed: 12/16/17 18:42> - Attestations Scribe Attestion: Documentation prepared by Payam Moreno, acting as medical imaging director for Yon Collins MD. <Payam Moreno - Last Filed: 12/16/17 18:55> <Yon Collins - Last Filed: 12/16/17 19:09> Diagnosis at time of Disposition: Neutropenic fever - Discharge Dispostion Condition at time of disposition: Stable - Referrals Referrals: Jovany Rodriguez MD [Primary Care Provider] - - Patient Instructions - Post Discharge Activity Attending Attestation - Resident Resident Name: Jon Apple - ED Attending Attestation I have performed the following: I have examined & evaluated the patient, The case was reviewed & discussed with the resident, I agree w/resident's findings & plan, Exceptions are as noted - HPI HPI: The patient is a 67 year old male with a significant past medical history of cancer (NHL lymphoma), cardiac disorders, hyperlipidemia, and thyroid disease who presents to the emergency department for evaluation of fever T_Max 103. The patient reports being prompted to visit the emergency department from his oncologist Dr. Duvall due to episodes of fever with T_Max 104, to be admitted under Dr. Rosario service. Patient reports associated symptoms of fever and headache. Denies diarrhea, constipation, chills, nausea, and vomiting. Allergies: NKDA Social History: Surgical History: Hernia repair, 05/07 double bypass, Cholecystectomy, and lymph node removed around chest wall. PCP: Dr. Jovany Rodriguez ([phone]) - Physicial Exam PE: GENERAL: Well developed, well nourished. Awake and alert. No acute distress. HEENT: Normocephalic, atraumatic. PERRLA, EOMI. No conjunctival pallor. Sclera are non- icteric. Moist mucous membranes. Oropharynx is clear. NECK: Supple. Full ROM. No JVD. Carotid pulses 2+ and symmetric, without bruits. No thyromegaly. No lymphadenopathy. CARDIOVASCULAR: Regular rate and rhythm. No murmurs, rubs, or gallops. Distal pulses are 2+ and symmetric. PULMONARY: No evidence of respiratory distress. Lungs clear to auscultation bilaterally. No wheezing, rales or rhonchi. ABDOMINAL: Soft. Non-tender. Non-distended. No rebound or guarding. No organomegaly. Normoactive bowel sounds. MUSCULOSKELETAL Normal range of motion at all joints. No bony deformities or tenderness. No CVA tenderness. EXTREMITIES: No cyanosis. No clubbing. No edema. No calf tenderness. SKIN: Warm and dry. Normal capillary refill. No rashes. No jaundice. NEUROLOGICAL: Alert, awake, appropriate. Cranial nerves 2-12 intact. No deficits to light touch and temperature in face, upper extremities and lower extremities. No motor deficits in the in face, upper extremities and lower extremities. Normoreflexic in the upper and lower extremities. Normal speech. Toes are down- going bilaterally. PSYCHIATRIC: Cooperative. Good eye contact. Appropriate mood and affect. <Payam Moreno - Last Filed: 12/16/17 18:55> - ED Attending Attestation I have performed the following: I have examined & evaluated the patient, The case was reviewed & discussed with the resident, I agree w/resident's findings & plan, Exceptions are as noted - Medical Decision Making Patient to be admitted on Dr Lehman service, hospitalist 12/16/17 19:08 <Yon Collins - Last Filed: 12/16/17 19:09>
[2017-12-16] MEDS ORDERED: SODIUM CHLORIDE 1,000 ML IV STA (18:41)
[2017-12-16] MEDS ORDERED: IBUPROFEN 600 MG TABLET (FP) PO ONE ×3 (19:08→19:10)
[2017-12-16 19:16] LABS: HEMATOCRIT 42.3 % (35.4-49); HEMOGLOBIN 14.4 GM/dl (11.7-16.9); MCH 32.1 pg (25.7-33.7); MEAN CELL VOLUME 94.6 fl (80-96); MEAN PLT VOLUME 7.5 fl (7.5-11.1); PLATELET COUNT 127 K/MM3 (134-434); RBC 4.47 M/mm3 (4.00-5.60); RDW 14.2 % (11.9-15.9)
[2017-12-16 19:30] LABS: WHITE BLOOD COUNT 1.5 K/mm3 (4.0-10.8)
[2017-12-16 20:30] LABS: PLATELET ESTIMATE ADEQUATE
[2017-12-16 20:32] LABS: VENOUS PC02 32.6 mmHg (38-52); VENOUS PH 7.46 (7.32-7.42)
[2017-12-16 20:33] LABS: VENOUS PO2 49.3 mmHg (28-48)
[2017-12-16] MEDS ORDERED: CEFEPIME HCL/D5W 2 GM/50 ML BAG IVPB ONE (20:46)
[2017-12-16] MEDS: SODIUM CHLORIDE 1,000 ML IV SCH (21:15)
[2017-12-16] MEDS ORDERED: HEPARIN NA (PORCINE) 5,000 UNITS/ML 1ML VIAL ONE (21:23)
[2017-12-16] MEDS ORDERED: HEMOQUE TEST 1 EACH EACH ONE (21:23)
[2017-12-16] MEDS ORDERED: INSULIN (NOVOLOG) ASPART 100 UNITS/ML 10ML VIAL ONE (21:34)
[2017-12-16] MEDS: INSULIN SLIDING SCALE (NOVOLOG) 1 VIAL SQ SCH (21:38)
[2017-12-16] MEDS ORDERED: HEPARIN NA (PORCINE) 5,000 UNITS/ML 1ML VIAL SQ SCH (22:00)
[2017-12-16 22:32] VITALS: BMI 28.0
[2017-12-16] MEDS: MELATONIN 5 MG TABLETS PO PRN (23:42)
--- NOTE | 2017-12-16 23:56 | HP ---
CHIEF COMPLAINT: fever PCP: Michael Andersen/onc: Eloina HISTORY OF PRESENT ILLNESS: This is a 67 year old male with a significant past medical history of NHL on chemo, last dose 11/30 (Gazyva) who presented to the ED with fever. He had fever on 12/11-12/12 which then resolved but returned yesterday on 12/15 ([id number]). He presented to the ED earlier today for fever but temp was only 100.5, repeat down to 98.5 with no intervention. After discussion with pt's oncologist, decision was made to send pt home on po levaquin. Shortly after pt returned home began with shaking chills and temperature back up to 104. Pt oncologist recommended he return to the ED for admission for IV antibiotics. Pt reports no fever/chills at present but does report recent episode of sweats. He also reports persistent dry cough that is not new. 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 Smoking: quit 30y ago Alcohol: occasional, but none recently Drugs: pt denies Recent Travel: pt denies Family History: mother age 92, DM father age 86, COPD, was a smoker brother s/p CABG in his 60s Allergies No Known Allergies Allergy (Verified 12/16/17 10:11) HOME MEDICATIONS: 3 Medication Instructions Recorded Aspirin [ASA -] 81 mg PO DAILY 06/07/14 Levothyroxine [Synthroid -] 100 mcg PO DAILY@0700 tablet 10/11/17 Sitagliptin Phosphate [Januvia -] 100 mg PO DAILY@0700 #30 ud 10/11/17 Levofloxacin [Levaquin] 750 mg PO ONCE #7 tablet MDD 1 tab 12/16/17 Melatonin 10 mg Tablet 10 mg PO HS PRN 12/16/17 REVIEW OF SYSTEMS CONSTITUTIONAL: Present: fever, chills, diaphoresis Absent: generalized weakness, malaise, loss of appetite, weight change HEENT: Absent: rhinorrhea, nasal congestion, throat pain, throat swelling, difficulty swallowing, mouth swelling, ear pain, eye pain, visual changes CARDIOVASCULAR: Absent: chest pain, syncope, palpitations, irregular heart rate, lightheadedness , peripheral edema RESPIRATORY: Absent: cough, shortness of breath, dyspnea with exertion, orthopnea, wheezing, stridor, hemoptysis GASTROINTESTINAL: Absent: abdominal pain, abdominal distension, nausea, vomiting, diarrhea, constipation, melena, hematochezia GENITOURINARY: Absent: dysuria, frequency, urgency, hesitancy, hematuria, flank pain, genital pain MUSCULOSKELETAL: Absent: myalgia, arthralgia, joint swelling, back pain, neck pain SKIN: Absent: rash, itching, pallor HEMATOLOGIC/IMMUNOLOGIC: Absent: easy bleeding, easy bruising, lymphadenopathy, frequent infections ENDOCRINE: Absent: unexplained weight gain, unexplained weight loss, heat intolerance, cold intolerance NEUROLOGIC: Absent: headache, focal weakness or paresthesias, dizziness, unsteady gait, seizure, mental status changes, bladder or bowel incontinence PSYCHIATRIC: Absent: anxiety, depression, suicidal or homicidal ideation, hallucinations. PHYSICAL EXAMINATION Vital Signs - 24 hr 3 12/16/17 12/16/17 12/16/17 17:58 19:57 21:04 Temperature 103 F H 102.9 F H 101.3 F H Pulse Rate 79 Pulse Rate [ 67 Left] Respiratory 20 Rate Blood Pressure 157/70 Blood Pressure 102/43 [Right Arm] O2 Sat by Pulse 97 96 Oximetry (%) 3 12/16/17 23:42 Temperature 97.9 F Pulse Rate 56 L Pulse Rate [ Left] Respiratory 17 Rate Blood Pressure 99/50 Blood Pressure [Right Arm] O2 Sat by Pulse 95 Oximetry (%) GENERAL: Awake, alert, and fully oriented, in no acute distress. HEAD: Normal with no signs of trauma. EYES: Pupils equal, round and reactive to light, extraocular movements intact, sclera anicteric, conjunctiva clear. No lid lag. EARS, NOSE, THROAT: Ears normal, nares patent, oropharynx clear without exudates. Moist mucous membranes. NECK: Normal range of motion, supple without lymphadenopathy, JVD, or masses. LUNGS: Breath sounds equal, clear to auscultation bilaterally. No wheezes, and no crackles. No accessory muscle use. HEART: Regular rate and rhythm, normal S1 and S2 without murmur, rub or gallop. ABDOMEN: Soft, nontender, not distended, normoactive bowel sounds, no guarding, no rebound, no masses. No hepatomegaly or splenomegaly. MUSCULOSKELETAL: Normal range of motion at all joints. No bony deformities or tenderness. No CVA tenderness. UPPER EXTREMITIES: 2+ pulses, warm, well-perfused. No cyanosis. No clubbing. No peripheral edema. LOWER EXTREMITIES: 2+ pulses, warm, well-perfused. No calf tenderness. No peripheral edema. NEUROLOGICAL: Cranial nerves II-XII intact. Normal speech. Normal gait. PSYCHIATRIC: Cooperative. Good eye contact. Appropriate mood and affect. SKIN: Warm, dry, normal turgor, no rashes or lesions noted, normal capillary refill. Laboratory Results - last 24 hr 3 12/16/17 12/16/17 12/16/17 12/16/17 18:07 18:07 18:07 21:30 WBC 1.5 L* RBC 4.47 Hgb 14.4 Hct 42.3 MCV 94.6 MCH 32.1 MCHC 34.0 RDW 14.2 Plt Count 127 L MPV 7.5 Neutrophils % 52.0 D Lymphocytes % 20.0 D Monocytes % 8.0 Eosinophils % 4.0 D Platelet Estimate Adequate VBG pH 7.46 H POC VBG pCO2 32.6 L POC VBG pO2 49.3 H Mixed VBG HCO3 23.0 POC Glucometer [phone] Lactic Acid 2.5 H* ECG Normal sinus rhythm vent rate 62, QTC 410 Inferior infarct, age undetermined No acute ST/T wave changes Radiology Report CXR PA/Lat 12/16/17 10:51 IMPRESSION: No significant interval change or acute lung disease is present Reported By: Nat Crawley MD 12/16/17 1106 ASSESSMENT/PLAN: 67yM with PMH NHL on chemo, transaminitis, NIDDM, HLD, CAD s/p CABG and stent placement, hypothyroidism, cholecystitis presented to the ED with fever. Neutropenic fever - cefepime 2g IVPB q8h - ID consult - d/w pt's covering oncologist, Dr. Aguilera who recommended neupogen, same ordered - NS @ 125cc/hr lactic acidosis - NS @ 125cc/hr, repeat in am mild hyponatremia - cont IVF, repeat BMP in am CAD/HLD - cont ASA, statin contraindicated in transaminitis NIDDM - will hold januvia while inpatient - BGM AC/HS with novolog SS hypothyroid - cont synthroid DVT PPX - heparin 5000u SC TID FEN - NS @ 125cc/hr - bmp in am - neutropenic diet as tolerated Dispo: Pt currently requires further inpatient management of his emergent condition. Visit type - Emergency Visit Emergency Visit: Yes ED Registration Date: 12/16/17 Care time: The patient presented to the Emergency Department on the above date and was hospitalized for further evaluation of their emergent condition. - New Patient This patient is new to me today: Yes Date on this admission: 12/16/17 - Critical Care Critical Care patient: No Hospitalist Screening - Colonoscopy Questionnaire Colonoscopy Questionnaire: Colonoscopy Questionnaire - Patient: 50 - 75 years old and never had a screening colonoscopy: No History of colon or rectal polyps, or CA: Yes History of IBD, Crohn's disease or UC: No History of abdominal radiation therapy as a child: No - Relative: 1 with colon or rectal CA, or polyps at age 60 or younger: No Colon or rectal CA diagnosed at age 45 or younger: No Multiple relatives with colon or rectal CA: No - Outcome: Screening Result: Positive Screen
[2017-12-17] MEDS ORDERED: TBO-FILGRASTIM 480 MCG/0.8 ML DISP.SYRIN SQ ONE (00:26)
[2017-12-17] MEDS ORDERED: CEFEPIME HCL/D5W 2 GM/50 ML BAG IVPB ONE (05:00)
[2017-12-17] MEDS ORDERED: HEPARIN NA (PORCINE) 5,000 UNITS/ML 1ML VIAL SQ SCH (06:00)
[2017-12-17] MEDS: INSULIN SLIDING SCALE (NOVOLOG) 1 VIAL SQ SCH ×4 (06:28→21:49)
[2017-12-17] MEDS: LEVOTHYROXINE NA 100 MCG TABLET (FP) PO SCH (06:28)
--- NOTE | 2017-12-17 07:19 | PN ---
Physical Exam: SUBJECTIVE: Patient seen and examined, Patient reports feeling well denies any tactile fever tolerating diet, patient denies any abdominal pain. OBJECTIVE: Patient is a 67 year old male with a significant past medical history of NHL on chemo, last dose 11/30 (Gazyva), NHLympoma first diagnosed 2004 , transaminitis/fatty liver, NIDDM, HLD, CAD, CABG, hypothyroidism, cholecystitis. Patient was admitted from the emergency Department for neutropenic fever Vital Signs Period Temp Pulse Resp BP Sys/Aguilera Pulse Ox Last 24 Hr 97.6 F-103 F 51-79 17-20 99-157/43-70 95-99 GENERAL: The patient is awake, alert, and fully oriented, in no acute distress. HEAD: Normal with no signs of trauma. EYES: PERRL, extraocular movements intact, sclera anicteric, conjunctiva clear. No ptosis. ENT: Ears normal, nares patent, oropharynx clear without exudates, moist mucous membranes. NECK: Trachea midline, full range of motion, supple. LUNGS: Breath sounds equal, clear to auscultation bilaterally, no wheezes, no crackles, no accessory muscle use. HEART: Regular rate and rhythm, S1, S2 without murmur, rub or gallop. ABDOMEN: Soft, nontender, nondistended, normoactive bowel sounds, no guarding, no rebound, no hepatosplenomegaly, no masses. EXTREMITIES: 2+ pulses, warm, well-perfused, no edema. NEUROLOGICAL: Cranial nerves II through XII grossly intact. Normal speech, gait not observed. PSYCH: Normal mood, normal affect. SKIN: Warm, dry, normal turgor, no rashes or lesions noted Laboratory Results - last 24 hr CBC WBC 2.2 K/mm3 (4.0-10.8) L D 12/17/17 07:20 RBC 4.18 M/mm3 (4.00-5.60) 12/17/17 07:20 Hgb 13.8 GM/dl (11.7-16.9) 12/17/17 07:20 Hct 39.8 % (35.4-49) 12/17/17 07:20 MCV 95.4 fl (80-96) 12/17/17 07:20 MCH 33.2 pg (25.7-33.7) 12/17/17 07:20 MCHC 34.8 g/dl (32.0-35.9) 12/17/17 07:20 RDW 14.3 % (11.9-15.9) 12/17/17 07:20 Plt Count 96 K/MM3 (134-434) L D 12/17/17 07:20 MPV 7.4 fl (7.5-11.1) L 12/17/17 07:20 Neutrophils % 59.8 % (42.8-82.8) 12/17/17 07:20 Lymphocytes % 20.9 % (8-40) 12/17/17 07:20 Monocytes % 16.2 % (3.8-10.2) H D 12/17/17 07:20 Eosinophils % 2.3 % (0-4.5) 12/17/17 07:20 Basophils % 0.8 % (0-2.0) 12/17/17 07:20 Platelet Estimate Adequate 12/16/17 18:07 CMP Sodium 135 mmol/L (136-145) L 12/17/17 07:20 Potassium 4.2 mmol/L (3.5-5.1) 12/17/17 07:20 Chloride 108 mmol/L (98-107) H 12/17/17 07:20 Carbon Dioxide 25 mmol/L (22-28) 12/17/17 07:20 Anion Gap 2 (8-16) L 12/17/17 07:20 BUN 11 mg/dl (7-18) 12/17/17 07:20 Creatinine 0.9 mg/dl (0.6-1.3) 12/17/17 07:20 Creat Clearance w eGFR > 60 (>60) 12/17/17 07:20 POC Glucometer 245 UNITS (80-120) 12/17/17 11:30 Random Glucose 141 mg/dl (74-106) H D 12/17/17 07:20 Lactic Acid 1.1 mmol/L (0.0-2.0) 12/17/17 07:20 Calcium 7.8 mg/dl (8.4-10.2) L 12/17/17 07:20 Phosphorus 2.4 mg/dl (2.5-4.6) L D 12/17/17 07:20 Magnesium 1.5 mg/dL (1.8-2.4) L 12/17/17 07:20 Total Bilirubin 1.0 mg/dl (0.2-1.0) D 12/17/17 07:20 AST 333 U/L (10-42) H 12/17/17 07:20 ALT 303 U/L (10-40) H 12/17/17 07:20 Alkaline Phosphatase 110 U/L (32-92) H 12/17/17 07:20 Total Protein 4.3 g/dl (6.4-8.3) L D 12/17/17 07:20 Albumin 2.4 g/dl (3.5-5.0) L D 12/17/17 07:20 12/16/17 12/17/17 21:30 06:23 WBC RBC Hgb Hct MCV MCH MCHC RDW Plt Count MPV Neutrophils % Lymphocytes % Monocytes % Eosinophils % Platelet Estimate VBG pH POC VBG pCO2 POC VBG pO2 Mixed VBG HCO3 POC Glucometer [id number] 139 Lactic Acid Active Medications Generic Name Dose Route Start Last Admin Trade Name Westleyq PRN Reason Stop Dose Admin Aspirin 81 mg 12/17/17 10:00 Asa - PO DAILY ROSLYN Heparin Sodium (Porcine) 5,000 unit 12/17/17 06:00 12/17/17 05:41 Heparin - SQ 5,000 unit TID ROSLYN Administration Sodium Chloride 1,000 mls @ 125 mls/hr 12/16/17 21:00 12/16/17 21:15 Normal Saline - IV 125 mls/hr ASDIR ROSLYN Administration Insulin Aspart 1 vial 12/16/17 22:00 12/16/17 21:38 Novolog Vial Sliding Scale - SQ 2 units HS ROSLYN Administration Protocol Insulin Aspart 1 vial 12/17/17 07:00 12/17/17 06:28 Novolog Vial Sliding Scale - SQ Not Given TIDAC [facility] Protocol Levothyroxine Sodium 100 mcg 12/17/17 07:00 12/17/17 06:28 Synthroid - PO 100 mcg DAILY@0700 ROSLYN Administration Melatonin 10 mg 12/16/17 22:44 12/16/17 23:42 Melatonin PO 10 mg HS PRN Administration INSOMNIA ECG Normal sinus rhythm vent rate 62, QTC 410 Inferior infarct, age undetermined No acute ST/T wave changes Radiology Report CXR PA/Lat 12/16/17 10:51 IMPRESSION: No significant interval change or acute lung disease is present Reported By: Nat Crawley MD 12/16/17 1106 ASSESSMENT/PLAN: 1) heme/onc Neutropenic fever - tmax 101.3, neupogen given 12/16, WBC 2.2, lactic acidosis resolved pending blood and urine cultures - continue cefepime 2 g every 8 hours upon the recommendation of infectious disease - Appreciate oncology input Dr. Aguilera, patient's private oncologist 2) cardiovascular CAD/HLD - cont ASA, statin contraindicated in transaminitis 3) endo NIDDM - restert elinor, BGM AC/HS with novolog SS hypothyroid - cont synthroid DVT PPX - scd/july FEN - NS @ 75cc/hr - bmp in am - neutropenic diet as tolerated Dispo: Pt currently requires further inpatient management of his emergent conditio Visit type - Emergency Visit Emergency Visit: Yes ED Registration Date: 12/16/17 Care time: The patient presented to the Emergency Department on the above date and was hospitalized for further evaluation of their emergent condition. - New Patient This patient is new to me today: Yes Date on this admission: 12/17/17 - Critical Care Critical Care patient: No - Discharge Referral Referred to [facility] Med P.C.: No
[2017-12-17 08:11] LABS: BASO % 0.8 % (0-2.0); EOS % 2.3 % (0-4.5); HEMATOCRIT 39.8 % (35.4-49); HEMOGLOBIN 13.8 GM/dl (11.7-16.9); LYMPH % 20.9 % (8-40); MCH 33.2 pg (25.7-33.7); MCHC 34.8 g/dl (32.0-35.9); MEAN CELL VOLUME 95.4 fl (80-96); MEAN PLT VOLUME 7.4 fl (7.5-11.1); MONO % 16.2 % (3.8-10.2); NEUT % 59.8 % (42.8-82.8); PLATELET COUNT 96 K/MM3 (134-434); RBC 4.18 M/mm3 (4.00-5.60); RDW 14.3 % (11.9-15.9); WHITE BLOOD COUNT 2.2 K/mm3 (4.0-10.8)
[2017-12-17 08:42] LABS: ALBUMIN 2.4 g/dl (3.5-5.0); ALK PHOS 110 U/L (32-92); ANION GAP 2 (8-16); BLOOD UREA NITROGEN 11 mg/dl (7-18); CALCIUM 7.8 mg/dl (8.4-10.2); CHLORIDE 108 mmol/L (98-107); CO2 25 mmol/L (22-28); CREATININE 0.9 mg/dl (0.6-1.3); GLUCOSE,RANDOM 141 mg/dl (74-106); MAGNESIUM 1.5 mg/dL (1.8-2.4); PHOSPHOROUS 2.4 mg/dl (2.5-4.6); POTASSIUM 4.2 mmol/L (3.5-5.1); SGPT/ALT 303 U/L (10-40); SODIUM 135 mmol/L (136-145); TOT PROT 4.3 g/dl (6.4-8.3)
[2017-12-17] MEDS ORDERED: MAGNESIUM SULFATE IN WATER 2 GM/50 ML IVPB IVPB ONE (09:03)
[2017-12-17 09:13] LABS: SGOT/AST 333 U/L (10-42)
[2017-12-17] MEDS ORDERED: PT OWN MED DRAWER 7, Y5N ONE ×2 (10:08→17:10)
[2017-12-17] MEDS: ASPIRIN 81 MG CHEWABLE TABLETS PO SCH (10:12)
[2017-12-17] MEDS: CEFEPIME 2 GM in DEXTROSE 5%-WATER 100 ML IVPB SCH ×2 (10:13→17:14)
[2017-12-17] MEDS: NAPH,MB-DB/K PH,MBDB POWDER PACKET PO SCH ×2 (10:22→21:40)
--- NOTE | 2017-12-17 10:48 | PN ---
Progress Note (short form) - Note Progress Note: ID Consult dictated Febrile neutropenia R/O Neutropenic Sepsis Recurrent NHL S/P Chemo 11/30/17 Chronically elevated LFTs/ Fatty liver Thrombocytopenia Pending c/s Empiric cefepime Neutropenic precautions
[2017-12-17] MEDS ORDERED: INSULIN (NOVOLOG) ASPART 100 UNITS/ML 10ML VIAL ONE ×2 (11:36→16:17)
--- NOTE | 2017-12-17 11:52 | CONS ---
DATE OF CONSULTATION: DATE OF DICTATION: 12/17/2017 HISTORY OF PRESENT ILLNESS: The patient is a 67-year-old male with a longstanding history of non-Hodgkin lymphoma, status post recurrence, now admitted with febrile neutropenia. The patient received a cycle of chemotherapy (Gazyva) on November 30, 2017. He reports doing well until approximately 1 week ago. He had developed a self-limited low-grade fever on December 11 and December 12. On December 16 he again noted low-grade fever. He presented to the emergency room where his temperature was noted to be 100.5. Cultures were obtained and he was discharged home on oral Levaquin. Patient states he was unable to fill the prescription before developing recurrent fever. This time the fever was described as high grade to 103, 104, associated with shaking chills. He returned to the emergency room where he was admitted. Patient was given Neupogen. At the present time he is more comfortable. He has no complaints of fever or chills. He has no focal complaint. He denies any mouth sores or sore throat. No chest pain, shortness of breath, cough or sputum production. No vomiting or diarrhea. No dysuria or hematuria. No infected skin lesions. Patient does not have a port. PAST MEDICAL HISTORY: Positive for recurrent non-Hodgkin lymphoma, on chemotherapy. He had received Rituxan in the past. History of chronically elevated liver enzymes which according to the notes has been extensively worked up in the past and attributed to fatty liver. Past medical history also includes Kaposi sarcoma, noninsulin-dependent diabetes mellitus, hyperlipidemia, coronary artery disease, hypothyroidism. PAST SURGICAL HISTORY: Status post coronary artery bypass graft, hernia repair and cholecystectomy. ALLERGIES: No known allergies. MEDICATIONS: Heparin, NovoLog, aspirin, melatonin, Synthroid. 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 Former smoker; stopped 30 years ago. Is . SYSTEMS REVIEW:Neurologic: No loss of consciousness, seizure activity or focal weakness. Cardiac: Negative chest pain or palpitations.Respiratory: Negative cough or sputum production.Gastrointestinal: Negative vomiting or diarrhea. Genitourinary: Negative for urinary tract infection. LABORATORY DATA: White count on admission 1.5, presently 2.2 with 59% neutrophils, 20% lymphocytes, 16 monocytes, 2 eosinophils, absolute neutrophil count 1.3, hematocrit 39.8, platelets 96. BUN 11, creatinine 0.9. Total bilirubin 1.0, alkaline phosphatase 110, AST 333, ALT 303. PHYSICAL EXAMINATION: General: The patient is awake and alert. He is not acutely toxic appearing. Vital Signs: Temperature is 97.5, T-max 103, blood pressure 115/58, pulse 54, regular, respirations 20 per minute. HEENT: Sclerae are anicteric. No oral lesions noted. Neck: Supple. No nodes. Cardiac: Heart sounds S1, S2. Lungs: Clear bilaterally. Abdomen: Soft. No tenderness elicited. No mass, rebound or rigidity. Extremities: Negative for edema. No rashes noted. IMPRESSION: 1. Febrile neutropenia, rule out neutropenic sepsis. 2. Recurrent non-Hodgkin lymphoma, status post chemotherapy. 3. Chronically elevated liver enzymes, history of fatty liver. 4. Thrombocytopenia. RECOMMENDATIONS: Await culture results. Patient has been given Neupogen. Empiric antibiotic coverage with cefepime 2 g IV piggyback every 8 hours. Neutropenic precautions. Will follow. Thank you for the kind referral. CHARLIE MUNROE M.D. [id number]
--- NOTE | 2017-12-17 13:06 | CONSULT ---
Consult Consult Specialty:: heme-onc Referred by:: hamzah duncan - History of Present Illness Chief Complaint: fever History of Present Illness: 67 yom well-known to our c w h/o NHL. Currently tx'd w obinotuzumab (11/30) / revlimid. Rev on hold due to leukopenia Adm w temp reported to 104 and shakes. He denies any localizing sxs of infxn - History Source History Provided By: Patient, Medical Record Limitations to Obtaining History: No Limitations - Past Medical History Cardio/Vascular: Yes: CAD (s/p bypass last year and stents x2), Hyperlipdemia Pulmonary: Yes: Cancer (NHL) Gastrointestinal: Yes: Other (Cholecystitis, transamonitis - eval'd by hepatology (lymphoma infiltration entertained)) Endocrine: Yes: Hypothyroidism Dermatology: Yes: Other ([place]) - Past Surgical History Past Surgical History: Yes: CABG, Hernia Repair (umbillical), Stent - Alcohol/Substance Use Hx Alcohol Use: No History of Substance Use: reports: None - Smoking History Smoking history: Never smoked Have you smoked in the past 12 months: No Aproximately how many cigarettes per day: 0 - Social History ADL: Independent History of Recent Travel: No Home Medications - Allergies Allergies/Adverse Reactions: Allergies Allergy/AdvReac Type Severity Reaction Status Date / Time No Known Allergies Allergy Verified 12/16/17 10:11 - Home Medications Home Medications: Ambulatory Orders Aspirin [ASA -] 81 mg PO DAILY 06/07/14 Levothyroxine [Synthroid -] 100 mcg PO DAILY@0700 tablet 10/11/17 Sitagliptin Phosphate [Januvia -] 100 mg PO DAILY@0700 #30 ud 10/11/17 Levofloxacin [Levaquin] 750 mg PO ONCE #7 tablet MDD 1 tab 12/16/17 Melatonin 10 mg Tablet 10 mg PO HS PRN 12/16/17 Review of Systems - Review of Systems Constitutional: reports: No Symptoms HENT: reports: No Symptoms Respiratory: reports: No Symptoms Gastrointestinal: reports: No Symptoms Genitourinary: reports: No Symptoms Integumentary: reports: No Symptoms Hematology/Lymphatic: reports: Other (inguinal LA has improved) Physical Exam Vital Signs: Vital Signs Temperature 97.5 F L 12/17/17 10:16 Pulse Rate 54 L 12/17/17 10:16 Respiratory Rate 20 05/25/18 10:16 Blood Pressure 115/58 12/17/17 10:16 O2 Sat by Pulse Oximetry (%) 99 12/17/17 06:34 Constitutional: Yes: Well Nourished, Calm Eyes: Yes: Conjunctiva Clear HENT: Yes: WNL Neck: Yes: Supple Cardiovascular: Yes: Regular Rate and Rhythm Respiratory: Yes: CTA Bilaterally Gastrointestinal: Yes: Normal Bowel Sounds Renal/: Yes: Other (small ing LA R>L) Edema: No Labs: CBC, BMP 12/17/17 07:20 12/17/17 07:20 Assessment/Plan NHL, ongoing immunotx (anti CD 20) and rev (on hold awaiting counts recov) adm w neutropenic fever Has defervesced w abx. Neupogen given w improved wbc. BC w NGTD Appreciate ID input Await cultures Monitor counts and would re-dose neupogen if needed to maintain anc>1200
[2017-12-17] MEDS: SODIUM CHLORIDE 1,000 ML IV SCH (21:40)
[2017-12-17] MEDS: MELATONIN 5 MG TABLETS PO PRN (21:40)
[2017-12-18] MEDS: CEFEPIME 2 GM in DEXTROSE 5%-WATER 100 ML IVPB SCH ×2 (01:32→09:48)
[2017-12-18] MEDS: LEVOTHYROXINE NA 100 MCG TABLET (FP) PO SCH (06:46)
[2017-12-18] MEDS: INSULIN SLIDING SCALE (NOVOLOG) 1 VIAL SQ SCH ×3 (06:46→16:24)
[2017-12-18] MEDS ORDERED: sitaGLIPtin PHOSPHATE 50 MG TABLET PO SCH (07:00)
[2017-12-18 08:36] LABS: HEMOGLOBIN 14.2 GM/dl (11.7-16.9); MCH 32.8 pg (25.7-33.7); MCHC 34.6 g/dl (32.0-35.9); MEAN CELL VOLUME 94.8 fl (80-96); MEAN PLT VOLUME 7.8 fl (7.5-11.1); PLATELET COUNT 110 K/MM3 (134-434); RBC 4.32 M/mm3 (4.00-5.60); RDW 14.5 % (11.9-15.9); WHITE BLOOD COUNT 4.1 K/mm3 (4.0-10.8)
[2017-12-18 08:37] LABS: ALBUMIN 2.5 g/dl (3.5-5.0); ALK PHOS 102 U/L (32-92); ANION GAP 6 (8-16); BILIRUBIN,TOTAL 1.1 mg/dl (0.2-1.0); BLOOD UREA NITROGEN 9 mg/dl (7-18); CHLORIDE 106 mmol/L (98-107); CO2 24 mmol/L (22-28); CREATININE 0.8 mg/dl (0.6-1.3); GLUCOSE,RANDOM 117 mg/dl (74-106); MAGNESIUM 1.4 mg/dL (1.8-2.4); PHOSPHOROUS 3.2 mg/dl (2.5-4.6); POTASSIUM 3.7 mmol/L (3.5-5.1); SGOT/AST 214 U/L (10-42); SGPT/ALT 239 U/L (10-40); SODIUM 136 mmol/L (136-145); TOT PROT 4.3 g/dl (6.4-8.3)
[2017-12-18 08:56] LABS: ADD RBC MORPHOLOGY YES
[2017-12-18] MEDS ORDERED: MAGNESIUM SULF 50% (8.12 MEQ/2 ML-1 GM VIAL) IVPB ONE (09:30)
[2017-12-18] MEDS ORDERED: PT OWN MED DRAWER 7, Y5N ONE (09:46)
[2017-12-18] MEDS: ASPIRIN 81 MG CHEWABLE TABLETS PO SCH (09:48)
[2017-12-18] MEDS: NAPH,MB-DB/K PH,MBDB POWDER PACKET PO SCH (09:49)
[2017-12-18 09:54] LABS: PLATELET ESTIMATE ADEQUATE
[2017-12-18 14:49] VITALS: BP 147/66; PULSE 60; TEMP 98
--- NOTE | 2017-12-18 16:23 | PN ---
Progress Note (short form) - Note Progress Note: asked to f/u patient has been afebrile since yesterday am wants to go home no complaints feels well blood cultures negative no cough or sore throat, no dysuria chronically elevated lfts per patient Vital Signs Period Temp Pulse Resp BP Sys/Aguilera Pulse Ox Last 24 Hr 97.7 F-98.0 F 51-60 16-18 117-147/54-66 95-99 cor-rrr lungs clear abd soft,nt ext no edema CBC, BMP 12/18/17 07:10 12/18/17 07:10 blood cultures are negative at 48 hours cxray no infiltrate a/p NHL known abnl lfts per patient fevers resolved-afeb since yesterday am neutropenia resolved on cefepime day #2 will d/w oncology regarding discharge home-d/w Dr Duvall- he is okay with discharge home he has levaquin at home that he can resume he will see him on Wednesday patient to return to ED romi if fever recurs
[2017-12-18] MEDS ORDERED: INSULIN (NOVOLOG) ASPART 100 UNITS/ML 10ML VIAL ONE (16:24)
--- NOTE | 2017-12-18 16:39 | DS ---
Physical Exam: SUBJECTIVE: Patient seen and examined OBJECTIVE: Vital Signs Period Temp Pulse Resp BP Sys/Aguilera Pulse Ox Last 24 Hr 97.7 F-98.0 F 51-60 16-18 117-147/54-66 95-99 PHYSICAL EXAM GENERAL: The patient is awake, alert, and fully oriented, in no acute distress. HEAD: Normal with no signs of trauma. EYES: PERRL, extraocular movements intact, sclera anicteric, conjunctiva clear. ENT: Ears normal, nares patent, oropharynx clear without exudates, moist mucous membranes. NECK: Trachea midline, full range of motion, supple. LUNGS: Breath sounds equal, clear to auscultation bilaterally, no wheezes, no crackles, no accessory muscle use. HEART: Regular rate and rhythm, S1, S2 without murmur, rub or gallop. ABDOMEN: Soft, nontender, nondistended, normoactive bowel sounds, no guarding, no rebound, no hepatosplenomegaly, no masses. EXTREMITIES: 2+ pulses, warm, well-perfused, no edema. NEUROLOGICAL: Cranial nerves II through XII grossly intact. Normal speech, gait not observed. PSYCH: Normal mood, normal affect. SKIN: Warm, dry, normal turgor, no rashes or lesions noted. LABS Laboratory Results - last 24 hr 12/17/17 12/18/17 12/18/17 21:48 06:03 07:10 WBC 4.1 D RBC 4.32 Hgb 14.2 Hct 41.0 MCV 94.8 MCH 32.8 MCHC 34.6 RDW 14.5 Plt Count 110 L MPV 7.8 Neutrophils % No Result Required. Neutrophils % (Manual) 55.0 Band Neutrophils % 12.0 H Lymphocytes % No Result Required. Lymphocytes % (Manual) 22.0 D Monocytes % (Manual) 10 Eosinophils % (Manual) 1.0 D Platelet Estimate Adequate Sodium Potassium Chloride Carbon Dioxide Anion Gap BUN Creatinine Creat Clearance w eGFR POC Glucometer 160 126 Random Glucose Calcium Phosphorus Magnesium Total Bilirubin AST ALT Alkaline Phosphatase Total Protein Albumin 12/18/17 07:10 WBC RBC Hgb Hct MCV MCH MCHC RDW Plt Count MPV Neutrophils % Neutrophils % (Manual) Band Neutrophils % Lymphocytes % Lymphocytes % (Manual) Monocytes % (Manual) Eosinophils % (Manual) Platelet Estimate Sodium 136 Potassium 3.7 Chloride 106 Carbon Dioxide 24 Anion Gap 6 L BUN 9 Creatinine 0.8 Creat Clearance w eGFR > 60 POC Glucometer Random Glucose 117 H Calcium 8.0 L Phosphorus 3.2 D Magnesium 1.4 L Total Bilirubin 1.1 H AST 214 H D ALT 239 H D Alkaline Phosphatase 102 H Total Protein 4.3 L Albumin 2.5 L HOSPITAL COURSE: Date of Admission:12/16/17 Date of Discharge: 12/18/17 Discharge Summary Reason For Visit: FEBRILE NEUTROPENIA Condition: Stable - Instructions Diet, Activity, Other Instructions: Please return to the Ed for any new persistent, or worsening symptoms. Follow up with your PCP in 1 week Continue medications as directed Continue taking Levaquin as prescribed during initial ED visit Take magnesium tablets daily and recheck levels next week Follow with Dr. Duvall next week Referrals: Jovany Rodriguez MD [Primary Care Provider] - Sarath Duvall MD [Staff Physician] - Disposition: HOME - Home Medications Comprehensive Discharge Medication List: Ambulatory Orders Aspirin [ASA -] 81 mg PO DAILY 06/07/14 Levothyroxine [Synthroid -] 100 mcg PO DAILY@0700 tablet 10/11/17 Sitagliptin Phosphate [Januvia -] 100 mg PO DAILY@0700 #30 ud 10/11/17 Levofloxacin [Levaquin] 750 mg PO ONCE #7 tablet MDD 1 tab 12/16/17 Melatonin 10 mg Tablet 10 mg PO HS PRN 12/16/17 Magnesium Oxide [Magnesium] 400 mg PO DAILY #7 tablet 12/18/17
== END 2017-12-18 17:08 | disposition home or self-care (01) | DRG 809 ==
LOC: FER 17:54 → FM/S 20:51 → OBSVTOIN 20:51 → FM/S 21:27 → UNDOADMOB 21:27 → INTOOBSV 21:27
PROVIDERS: ADMIT Internal Medicine; ATTEND Nurse Practitioner Family
DX: D70.9 Neutropenia, unspecified (principal); E87.2 Acidosis; E87.1 Hypo-osmolality and hyponatremia; C85.90 Non-Hodgkin lymphoma, unspecified, unspecified site; R50.81 Fever presenting with conditions classified elsewhere; I25.10 Atherosclerotic heart disease of native coronary artery without angina pectoris; E78.5 Hyperlipidemia, unspecified; E11.9 Type 2 diabetes mellitus without complications; E03.9 Hypothyroidism, unspecified; D69.6 Thrombocytopenia, unspecified; Z95.1 Presence of aortocoronary bypass graft; T45.1X5A Adverse effect of antineoplastic and immunosuppressive drugs, initial encounter
CPT/HCPCS: 36415; 71046-TC-FY; 80048; 80053; 80076; 81003; 81015; 82803; 82962; 83605; 83735; 84100; 85025; 85610; 87040; 87086; 87186; 87804; 93005; 99283-25; J1447; J1644; J7030

== ENCOUNTER 2018-10-08 14:47 | Emergency (ER) | payer OTHER, MEDICARE ==
--- NOTE | 2018-10-08 14:50 | PDOC ---
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 As per family, the patients cough is accompanied with SOB, and increasing abdominal pain from his worsening cough. As per family, the patient was admitted for 5 weeks at [facility] for low blood count, fluid build up, anemia, and hepatitis E 2 weeks ago. As per family, the patient had RSV 5 weeks ago which resolved with treatment. As per family, the patient had 5L of fluid removed on 08/30/18. The patient denies fever, chills, nausea, vomit, diarrhea and constipation. The patient denies dysuria, frequency, urgency and hematuria. Allergies: NKDA Past surgical history: umbilical hernia repair, double bypass (05/07), lymph node removal Social history: No tobacco use. Occasional wine use. PCP:Dr. Rodriguez Oncologist: Dr. Sarath Duvall <Montez Urbina - Last Filed: 10/08/18 15:38> <Fiona Jang - Last Filed: 10/08/18 19:02> - General Chief Complaint: Shortness of Breath Stated Complaint: worsening cough,CHANG,inreasing abdominal girth Time Seen by Provider: 10/08/18 14:50 Past History <Montez Urbina - Last Filed: 10/08/18 15:38> - Past Medical History Anemia: No Asthma: No Cancer: Yes (lymphoma NHL) Cardiac Disorders: Yes CVA: No COPD: No CHF: No DVT: No Dementia: No Diabetes: No GI Disorders: Yes (GB) Disorders: No HTN: No Hypercholesterolemia: No Liver Disease: No Seizures: No Thyroid Disease: Yes - Surgical History Abdominal Surgery: Yes (UMBILICAL hernia repair) Cardiac Surgery: Yes (05/07 double bypass) Cholecystectomy: Yes Lung Surgery: (LYMP NODE REMOVED CHEST WALL) - Immunization History Td Vaccination: No TDAP Vaccination: No Immunization Up to Date: No - Suicide/Smoking/Psychosocial Hx Smoking History: Never smoked Have you smoked in the past 12 months: No Number of Cigarettes Smoked Daily: 0 Cigars Per Day: 0 Hx Alcohol Use: No Drug/Substance Use Hx: No Substance Use Type: None Hx Substance Use Treatment: No <Fiona Jang - Last Filed: 10/08/18 19:02> - Past Medical History Allergies/Adverse Reactions: Allergies Allergy/AdvReac Type Severity Reaction Status Date / Time No Known Allergies Allergy Verified 10/08/18 14:49 Home Medications: Ambulatory Orders Aspirin [ASA -] 81 mg PO DAILY 06/07/14 Levothyroxine [Synthroid -] 100 mcg PO DAILY@0700 tablet 10/11/17 Sitagliptin Phosphate [Januvia -] 100 mg PO DAILY@0700 #30 ud 10/11/17 Albuterol 0.083% Nebulizer Mari [Ventolin 0.083% Nebulizer Soln -] 1 neb NEB Q6H PRN #60 vial 10/08/18 Azithromycin [Zithromax 250mg Tablets -] 250 mg PO UTDICT #6 tab 10/08/18 Benzonatate 200 mg PO TID 10/08/18 Filgrastim [Neupogen] 480 mcg IJ DAILY 10/08/18 Furosemide [Lasix] 40 mg PO DAILY 10/08/18 Nebulizer [Aeroeclipse II] 1 each ASDIR #1 each 10/08/18 Polyethylene Glycol 3350 [Miralax (For Daily Use) -] 0 gm PO DAILY 10/08/18 Ribavirin 400 mg PO AM 10/08/18 Ribavirin 600 mg PO HS 10/08/18 Valacyclovir HCl [Valtrex -] 500 mg PO DAILY 10/08/18 Review of Systems - Review of Systems Able to Perform ROS?: Yes Comments:: 10/08/18 15:36 GENERAL/CONSTITUTIONAL: No fever or chills. No weakness. HEAD, EYES, EARS, NOSE AND THROAT: No change in vision. No ear pain or discharge. No sore throat. CARDIOVASCULAR: (+) shortness of breath. RESPIRATORY:(+) cough. No wheezing, or hemoptysis. GASTROINTESTINAL: No nausea, vomiting, diarrhea or constipation. GENITOURINARY: No dysuria, frequency, or change in urination. MUSCULOSKELETAL:(+) abdominal pain. No joint or muscle swelling. No neck or back pain. SKIN: No rash NEUROLOGIC: No headache, vertigo, loss of consciousness, or change in strength/ sensation. ENDOCRINE: No increased thirst. No abnormal weight change. HEMATOLOGIC/LYMPHATIC: No anemia, easy bleeding, or history of blood clots. ALLERGIC/IMMUNOLOGIC: No hives or skin allergy. <Montez Urbina - Last Filed: 10/08/18 15:38> *Physical Exam - Vital Signs Last Vital Signs Temp Pulse Resp BP Pulse Ox 98.6 F 76 20 131/63 99 10/08/18 14:49 10/08/18 14:49 10/08/18 14:49 10/08/18 14:49 10/08/18 14:49 <Montez Urbina - Last Filed: 10/08/18 15:38> Moderate Sedation - Procedure Monitoring Vital Signs: Procedure Monitoring Vital Signs Temperature 98.6 F 10/08/18 14:49 Pulse Rate 76 10/08/18 14:49 Respiratory Rate 20 10/08/18 14:49 Blood Pressure 131/63 10/08/18 14:49 O2 Sat by Pulse Oximetry (%) 99 10/08/18 14:49 <Montez Urbina - Last Filed: 10/08/18 15:38> Procedures - Additional Procedures Additional Procedures: other Progress: 10/08/18 17:02 Therapeutic abdominal paracentesis- Site was confirmed with ultrasound guidance to find a suitable fluid pocket, then marked with surgical pen. Area was prepped with chloraprep and sterile drape. Area was anesthetized with local lidocaine 1% approximately 2cc. After that, the needle was introduced and straw- colored fluid was quickly obtained. Catheter was advanced as needle was removed. Catheter was secured in place. Fluid was aspirated for lab analysis- 40cc. Catheter was subsequently connected to collection bag to continue collection. Patient tolerated well, minimal blood loss. <Fiona Jang - Last Filed: 10/08/18 19:02> ED Treatment Course - Medications Given in the ED: ED Medications Discontinued Medications Generic Name Dose Route Start Last Admin Trade Name Freq PRN Reason Stop Dose Admin Guaifenesin/Codeine Phosphate 10 ml 10/08/18 15:20 10/08/18 15:25 Robitussin Ac - PO 10/08/18 15:21 10 ml ONCE ONE Administration <Montez Urbina - Last Filed: 10/08/18 15:38> - LABORATORY CBC & Chemistry Diagram: 10/08/18 15:26 10/08/18 15:26 <Fiona Jang - Last Filed: 10/08/18 19:02> Medical Decision Making - Medical Decision Making 10/08/18 17:19 Pt continues to have cough despite robitussin with codeine. Will give oxycodone 5mg for pain, will do a trial of 1 duoneb for bronchospasm. Awaiting flu swab. If negative, will consider CT chest to r/o occult pna. Paracentesis drained approximately 250cc of fluid, now slowing down. Will attempt to reposition him to obtain additional fluid. 10/08/18 17:48 Flu swab negative. +Some improvement with neb, will give an additional one. Fluid is draining, currently 600cc in the bag. 10/08/18 19:01 Case d/w Dr. Duvall. Approximately 2 liters of ascitic fluid drained from the tap. Abd exam has improved (less fluid, fluid wave has resolved). Pt continues to cough, although it improved with treatments. Agrees with plan to treat for bronchitis. At this point I am awaiting paracentesis results. If wnl, may DC home. <Fiona Jang - Last Filed: 10/08/18 19:02> *DC/Admit/Observation/Transfer - Attestations Scribe Attestion: 10/08/18 15:37 Documentation prepared by Montez Urbina, acting as medical pathology teacher for Fiona Jang MD, MD <Montez Urbina - Last Filed: 10/08/18 15:38> <Fiona Jang - Last Filed: 10/08/18 19:02> Diagnosis at time of Disposition: Cough Ascites Qualifiers: Ascites type: other type Qualified Code(s): R18.8 - Other ascites - Discharge Dispostion Condition at time of disposition: Stable - Prescriptions Prescriptions: Albuterol 0.083% Nebulizer Mari [Ventolin 0.083% Nebulizer Soln -] 1 neb NEB Q6H PRN #60 vial PRN Reason: Shortness Of Breath Azithromycin [Zithromax 250mg Tablets -] 250 mg PO UTDICT #6 tab Nebulizer [Aeroeclipse II] 1 each ASDIR #1 each - Referrals Referrals: Jovany Rodriguez MD [Primary Care Provider] - - Patient Instructions Printed Discharge Instructions: DI for Acute Bronchitis
[2018-10-08 15:01] VITALS: TEMP 98.6; BMI 29.0
[2018-10-08] MEDS ORDERED: guaiFENesin/CODEINE 10 ML UNIT-DOSE CUPS ONE (15:16)
[2018-10-08] MEDS ORDERED: guaiFENesin/CODEINE 10 ML UNIT-DOSE CUPS PO ONE (15:20)
[2018-10-08 15:50] LABS: ALK PHOS 126 U/L (45-117); ANION GAP 9 MMOL/L (8-16); BILIRUBIN,TOTAL 3.1 mg/dl (0.2-1); BLOOD UREA NITROGEN 19 mg/dl (7-18); CALCIUM 7.7 mg/dl (8.5-10); CHLORIDE 102 mmol/L (98-107); CO2 21 mmol/L (21-32); GLUCOSE,RANDOM 174 mg/dl (74-106); POTASSIUM 3.2 mmol/L (3.5-5.1); SGOT/AST 62 U/L (15-37); SGPT/ALT 34 U/L (13-61); SODIUM 132 mmol/L (136-145); TOT PROT 4.7 g/dl (6.4-8.2)
[2018-10-08 15:51] LABS: INR 1.59 (0.82-1.09); PROTHROMBIN TIME (PATIENT) 17.6 SEC (10.2-13.0)
[2018-10-08 15:59] LABS: HEMATOCRIT 26.7 % (35.4-49); HEMOGLOBIN 8.8 GM/dl (11.7-16.9); MCH 39.6 pg (25.7-33.7); PLATELET COUNT 114 K/MM3 (134-434); RBC 2.23 M/mm3 (4.00-5.60); RDW 14.2 % (11.9-15.9)
[2018-10-08 16:08] LABS: WHITE BLOOD COUNT 1.3 K/mm3 (4.0-10.8)
[2018-10-08 16:09] LABS: ADD RBC MORPHOLOGY YES
[2018-10-08 16:48] LABS: ANISOCYTOSIS RARE; MACROCYTOSIS 3+
[2018-10-08 16:49] LABS: ROULEAU 1+
[2018-10-08 16:50] LABS: PLATELET ESTIMATE SLT DECREASE
[2018-10-08] MEDS ORDERED: oxyCODONE HCL 5 MG TABLET PO ONE (17:18)
[2018-10-08] MEDS ORDERED: ALBUTEROL SO4 2.5/IPRATROPIUM 0.5 INH SOL 3 ML VIAL.NEB. NEB ONE ×4 (17:18→18:06)
[2018-10-08] MEDS ORDERED: oxyCODONE HCL 5 MG TABLET ONE (17:19)
[2018-10-08 17:22] LABS: N-TERMINAL BNP 321.4 pg/ml (5-125)
[2018-10-08 18:59] VITALS: BP 130/58; PULSE 87
[2018-10-08 19:57] LABS: BF WBC & OTHER NUCLEATED CELLS 160 /mm3; BODY FLUID MACROPHAGES 13 %; BODY FLUID MONOCYTE 13 %
[2018-10-08 19:58] LABS: BODY FLUID MESOTHELIAL 4 %
[2018-10-10 14:10] LABS: BODY FLUID ALBUMIN 0.8 g/dL (.)
== END 2018-10-08 20:29 | disposition home or self-care (01) ==
LOC: FER 14:47 → SUPCPDRO 14:47 → FER 20:29
PROC: 3E0F7GC Introduction of Other Therapeutic Substance into Respiratory Tract, Via Natural or Artificial Opening (ICD-10-PCS; principal; 2018-10-08)
DX: R05 Cough (principal); R18.8 Other ascites; C85.90 Non-Hodgkin lymphoma, unspecified, unspecified site
CPT/HCPCS: 36415; 71045-TC-FY; 71250-TC; 74176-TC; 80053; 82042; 83615; 83690; 83880; 85025; 85610; 86850; 86900; 86901; 87070; 87075; 87205; 87804; 89051; 99285-25

== ENCOUNTER 2018-10-15 13:30 | Emergency (ER) | payer OTHER, MEDICARE ==
[2018-10-15 13:53] VITALS: BP 134/62; PULSE 87; TEMP 98.6; BMI 27.3
--- NOTE | 2018-10-15 13:54 | PDOC ---
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 The patient notes he only endorses these symptoms when urinating. As per family, the patient was admitted for 5 weeks at [facility] for low blood count, fluid build up, anemia, and hepatitis E, 3 weeks ago. As per family, the patient had RSV 6 weeks ago which resolved with treatment. As per family, the patient had 5L of ascites fluid removed on 08/30/18 and 2L of ascites fluid removed on 10/11/18. As per daughter, the patient starts chemotherapy for KS ( pill form) on Wednesday. The patient notes his last blood count was (2.2) . The patient denies frequency, urgency or hematuria. The patient denies fever, chills, nausea, vomit, diarrhea or constipation. Allergies: NKDA Past surgical history: umbilical hernia repair, double bypass (05/07), lymph node removal Social history: No tobacco use. Occasional wine use. PCP: Dr. Rodriguez Oncologist: Dr. Sarath Duvall <Montez Urbina - Last Filed: 10/15/18 15:43> <Jovany Ferraro - Last Filed: 10/15/18 15:53> - General Chief Complaint: Urinary Problem Stated Complaint: BURNING ON URINATION Time Seen by Provider: 10/15/18 13:47 Past History <Montez Urbina - Last Filed: 10/15/18 15:43> - Past Medical History Anemia: No Asthma: No Cancer: Yes (lymphoma NHL) Cardiac Disorders: Yes (CABG) CVA: No COPD: No CHF: No DVT: No Dementia: No Diabetes: Yes GI Disorders: Yes (GB) Disorders: No HTN: No Hypercholesterolemia: No Liver Disease: Yes (ACSCITES) Seizures: No Thyroid Disease: Yes Other medical history: KAPOSI SACROMA,BRONCHITIS - Surgical History Abdominal Surgery: Yes (UMBILICAL hernia repair) Cardiac Surgery: Yes (05/07 double bypass) Cholecystectomy: Yes Lung Surgery: (LYMP NODE REMOVED CHEST WALL) - Immunization History Td Vaccination: No TDAP Vaccination: No Immunization Up to Date: No - Suicide/Smoking/Psychosocial Hx Smoking History: Former smoker Have you smoked in the past 12 months: No Number of Cigarettes Smoked Daily: 0 If you are a former smoker, when did you quit?: 30 YEASR AGO Cigars Per Day: 0 Information on smoking cessation initiated: No Hx Alcohol Use: Yes (RARE) Drug/Substance Use Hx: No Substance Use Type: None Hx Substance Use Treatment: No <Jovany Ferraro - Last Filed: 10/15/18 15:53> - Past Medical History Allergies/Adverse Reactions: Allergies Allergy/AdvReac Type Severity Reaction Status Date / Time No Known Allergies Allergy Verified 10/15/18 13:32 Home Medications: Ambulatory Orders Aspirin [ASA -] 81 mg PO DAILY 06/07/14 Levothyroxine [Synthroid -] 100 mcg PO DAILY@0700 tablet 10/11/17 Sitagliptin Phosphate [Januvia -] 100 mg PO DAILY@0700 #30 ud 10/11/17 Benzonatate 200 mg PO TID 10/08/18 Filgrastim [Neupogen] 480 mcg IJ DAILY 10/08/18 Furosemide [Lasix] 40 mg PO DAILY 10/08/18 Guaifenesin AC [Robitussin AC -] 5 ml PO BID PRN #50 ml MDD 10ml 10/08/18 Polyethylene Glycol 3350 [Miralax 119 gm Btl -] 0 gm PO DAILY 10/08/18 Ribavirin 400 mg PO AM 10/08/18 Ribavirin 600 mg PO HS 10/08/18 Valacyclovir HCl [Valtrex -] 500 mg PO DAILY 10/08/18 Albuterol 0.083% Nebulizer Mari [Ventolin 0.083% Nebulizer Soln -] 1 neb NEB Q6H PRN #60 vial 10/09/18 Albuterol Sulfate Inhaler - [Ventolin HFA Inhaler -] 2 inh PO Q4H PRN #1 inh Nebulizer [Aeroeclipse II] 1 each MC DAILY #1 each 10/09/18 Ciprofloxacin HCl [Cipro] 500 mg PO BID #14 tablet 03/23/19 Phenazopyridine HCl [Pyridium] 200 mg PO TID PRN #21 tablet 10/15/18 Review of Systems - Review of Systems Able to Perform ROS?: Yes Comments:: 10/15/18 14:35 CONSTITUTIONAL: Absent: Fever, Chills, Diaphoresis, Generalized Weakness, Malaise, Loss of Appetite HEENT: Absent: Rhinorrhea, Nasal Congestion, Throat Pain, Throat Swelling, Difficulty Swallowing, Mouth Swelling, Ear Pain, Eye Pain, Visual Changes CARDIOVASCULAR: Absent: Chest Pain, Syncope, Palpitations, Irregular Heart Rate, Lightheadedness , Peripheral Edema RESPIRATORY: Absent: Cough, Shortness of Breath, SOB with Exertion, Orthopnea, Wheezing, Stridor, Hemoptysis GASTROINTESTINAL: Absent: Abdominal pain, Abdominal Distension, Nausea, Vomiting, Diarrhea, Constipation, Melena, Hematochezia GENITOURINARY: Present: Dysuria Absent: Frequency, Urgency, Hesitancy, Flank Pain, Genital Pain MUSCULOSKELETAL: Absent: Myalgia, Arthralgia, Joint Swelling, Back pain, Neck Pain SKIN: Absent: Rash, Itching, Pallor HEMEATOLOGIC/IMMUNOLOGIC: Absent: Easy Bleeding, Easy Bruising, Lymphadenopathy, Frequent infections ENDOCRINE: Absent: Unexplained Weight Gain, Unexplained Weight Loss, Heat Intolerance, Cold Intolerance NEUROLOGIC: Absent: Headache, Focal Weakness, Paresthesias, Vertigo, Lightheadedness, Unsteady Gait, Seizure, Mental Status Changes, Incontinence PSYCHIATRIC: Absent: Anxiety, Depression All Other Systems: Reviewed and Negative <Montez Urbina - Last Filed: 10/15/18 15:43> *Physical Exam - Vital Signs Last Vital Signs Temp Pulse Resp BP Pulse Ox 98.6 F 87 16 134/62 100 10/15/18 13:31 10/15/18 13:31 10/15/18 13:31 10/15/18 13:31 10/15/18 13:31 - Physical Exam Comments: 10/15/18 14:36 GENERAL: The patient is awake, alert, and fully oriented, in no acute distress. HEAD: Normal with no signs of trauma. EYES:(+) eyes mildly pale. Pupils equal, round and reactive to light, extraocular movements intact, sclera anicteric, conjunctiva clear. ENT: Ears normal, nares patent, oropharynx clear without exudates. Moist mucous membranes. NECK: Normal range of motion, supple without lymphadenopathy, JVD, or masses. LUNGS: (+) crackles. Breath sounds equal, clear to auscultation bilaterally. No wheezes. HEART: Regular rate and rhythm, normal S1 and S2 without murmur, rub or gallop. ABDOMEN:(+) ascites on abdomen. Nontender, normoactive bowel sounds. No guarding , no rebound. No masses. EXTREMITIES:(+) lower back mild pitting edema. (+) bilateral pitting edema on legs. Normal range of motion. No clubbing or cyanosis. No cords, erythema, or tenderness. NEUROLOGICAL: Cranial nerves II through XII grossly intact. Normal speech, normal gait. PSYCH: Normal mood, normal affect. SKIN: Warm, Dry, normal turgor, no rashes or lesions noted. <Montez Urbina - Last Filed: 10/15/18 15:43> - Vital Signs Last Vital Signs Temp Pulse Resp BP Pulse Ox 98.6 F 87 16 134/62 100 10/15/18 13:31 10/15/18 13:31 10/15/18 13:31 10/15/18 13:31 10/15/18 13:31 <Jovany Ferraro - Last Filed: 10/15/18 15:53> Moderate Sedation - Procedure Monitoring Vital Signs: Procedure Monitoring Vital Signs Temperature 98.6 F 10/15/18 13:31 Pulse Rate 87 10/15/18 13:31 Respiratory Rate 16 10/15/18 13:31 Blood Pressure 134/62 10/15/18 13:31 O2 Sat by Pulse Oximetry (%) 100 10/15/18 13:31 <Montez Urbina - Last Filed: 10/15/18 15:43> - Procedure Monitoring Vital Signs: Procedure Monitoring Vital Signs Temperature 98.6 F 10/15/18 13:31 Pulse Rate 87 10/15/18 13:31 Respiratory Rate 16 10/15/18 13:31 Blood Pressure 134/62 10/15/18 13:31 O2 Sat by Pulse Oximetry (%) 100 10/15/18 13:31 <Jovany Ferraro - Last Filed: 10/15/18 15:53> ED Treatment Course - LABORATORY CBC & Chemistry Diagram: 10/15/18 14:31 10/15/18 14:31 - ADDITIONAL ORDERS Additional order review: Laboratory Results 10/15/18 13:39 Urine Color Yellow Urine Appearance Clear Urine pH 5.5 Urine Protein 1+ Urine Glucose (UA) Negative Urine Ketones Negative Urine Blood 3+ Urine Nitrite Positive Urine Bilirubin Negative Urine Urobilinogen 1.0 Ur Leukocyte Esterase 2+ <Montez Urbina - Last Filed: 10/15/18 15:43> - LABORATORY CBC & Chemistry Diagram: 10/15/18 14:31 10/15/18 14:31 <Jovany Ferraro - Last Filed: 10/15/18 15:53> Medical Decision Making - Medical Decision Making 10/15/18 15:45 Patient with KS and cirrhosis/ascites, neutropenia presents with dysuria for a few days, had uti at [facility] in August, treated now on neupogen to raise neuts in prep for chemo for KS on exam he appears chronically ill few basilar crackles with moderate ascites and leg edema which has been chronic for months and he takes daily lasix labs notable for cirrhosis with elevated LFTs and INR UA notable for pyuria Spoke with Dr. 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 causing the dysuria will rx cipro and pyridium will give a dose of kdur will give copy of labs to family to bring to [facility] on Wednesday when he goes for f /u <Jovany Ferraro - Last Filed: 10/15/18 15:53> *DC/Admit/Observation/Transfer - Attestations Scribe Attestion: 10/15/18 14:37 Documentation prepared by Montez Urbina, acting as medical management specialist for Jovany Ferraro MD <Montez Urbina - Last Filed: 10/15/18 15:43> - Discharge Dispostion Decision to Admit order: No <Jovnay Ferraro - Last Filed: 10/15/18 15:53> Diagnosis at time of Disposition: Kaposi sarcoma UTI (urinary tract infection) Qualifiers: Urinary tract infection type: acute cystitis Hematuria presence: without hematuria Qualified Code(s): N30.00 - Acute cystitis without hematuria Cirrhosis Qualifiers: Hepatic cirrhosis type: unspecified hepatic cirrhosis Ascites presence: with ascites Qualified Code(s): K74.60 - Unspecified cirrhosis of liver; R18.8 - Other ascites - Discharge Dispostion Disposition: HOME Condition at time of disposition: Stable - Prescriptions Prescriptions: Ciprofloxacin HCl [Cipro] 500 mg PO BID #14 tablet Phenazopyridine HCl [Pyridium] 200 mg PO TID PRN #21 tablet PRN Reason: burning on urination - Referrals Referrals: Jovany Rodriguez MD [Primary Care Provider] - Sarath Duvall MD [Staff Physician] - 3 days - Patient Instructions Printed Discharge Instructions: DI for Urinary Tract Infection (UTI) Additional Instructions: evaluation today for burning on urination urine test with positive infection Rx for cipro antibiotic for the urine infection and pyridium for the burning on urination bring copy of the lab tests to [facility] on Wednesday watch for fever and chills see Dr Duvall for follow up return to the ER for any severe or progressive symptoms - Post Discharge Activity
[2018-10-15 14:41] LABS: EPI CELLS FEW /HPF; URINE WBC 40-60 /hpf (0-5)
[2018-10-15 14:42] LABS: URINE BACTERIA NODERATE /hpf (NEGATIVE)
[2018-10-15 14:55] LABS: HEMATOCRIT 28.7 % (35.4-49); HEMOGLOBIN 9.4 GM/dl (11.7-16.9); MCH 39.3 pg (25.7-33.7); MCHC 32.8 g/dl (32.0-35.9); MEAN CELL VOLUME 119.5 fl (80-96); MEAN PLT VOLUME 7.8 fl (7.5-11.1); PLATELET COUNT 105 K/MM3 (134-434); RDW 13.2 % (11.9-15.9); WHITE BLOOD COUNT 6.8 K/mm3 (4.0-10.8)
[2018-10-15 14:58] LABS: INR 1.65 (0.82-1.09); PROTHROMBIN TIME (PATIENT) 18.3 SEC (10.2-13.0)
[2018-10-15 15:03] LABS: ALBUMIN 2.7 g/dl (3.4-5.0); ALK PHOS 167 U/L (45-117); ANION GAP 10 MMOL/L (8-16); BILIRUBIN,TOTAL 2.7 mg/dl (0.2-1); BLOOD UREA NITROGEN 19 mg/dl (7-18); CALCIUM 7.8 mg/dl (8.5-10); CHLORIDE 101 mmol/L (98-107); CO2 22 mmol/L (21-32); GLUCOSE,RANDOM 264 mg/dl (74-106); POTASSIUM 3.4 mmol/L (3.5-5.1); SGOT/AST 70 U/L (15-37); SGPT/ALT 29 U/L (13-61); SODIUM 133 mmol/L (136-145); TOT PROT 4.5 g/dl (6.4-8.2)
[2018-10-15 15:08] LABS: ADD RBC MORPHOLOGY YES
[2018-10-15 15:33] LABS: ANISOCYTOSIS 1+; MACROCYTOSIS 2+; OVALOCYTE 1+; TEAR DROP CELLS 2+
[2018-10-15] MEDS ORDERED: POTASSIUM CHLORIDE TABS 20 MEQ TABLET.ER (FP) PO ONE ×2 (15:43→15:45)
[2018-10-15] MEDS ORDERED: CIPROFLOXACIN 500 MG TABLET (RESTRICTED TO ID) PO ONE (15:43)
[2018-10-15] MEDS ORDERED: PHENAZOPYRIDINE HCL 100 MG TABLET (FP) PO ONE (15:43)
[2018-10-15] MEDS ORDERED: PHENAZOPYRIDINE HCL 100 MG TABLET (FP) ONE (15:45)
[2018-10-15] MEDS ORDERED: CIPROFLOXACIN 250 MG TABLET (RESTRICTED TO ID) PO ONE (15:46)
== END 2018-10-15 15:59 | disposition home or self-care (01) ==
LOC: FER 13:30
DX: C46.9 Kaposi's sarcoma, unspecified (principal); N30.00 Acute cystitis without hematuria; K74.60 Unspecified cirrhosis of liver
CPT/HCPCS: 36415; 80053; 81015; 85025; 85610; 87086; 87186; 99282-25

== ENCOUNTER 2018-11-03 10:45 | Inpatient (IN) | payer OTHER, MEDICARE ==
[2018-11-03 11:54] LABS: ACTIVATED PTT 29.1 SECONDS (25.2-36.5)
[2018-11-03 11:55] LABS: ALBUMIN 3.2 g/dl (3.4-5.0); ALK PHOS 200 U/L (45-117); ANION GAP 11 MMOL/L (8-16); BILIRUBIN,TOTAL 2.4 mg/dl (0.2-1); BLOOD UREA NITROGEN 32 mg/dl (7-18); CALCIUM 8.8 mg/dl (8.5-10); CHLORIDE 98 mmol/L (98-107); CO2 23 mmol/L (21-32); CREATININE 1.2 mg/dl (0.55-1.3); GLUCOSE,RANDOM 244 mg/dl (74-106); HEMATOCRIT 31.1 % (35.4-49); HEMOGLOBIN 10.2 GM/dl (11.7-16.9); MCH 38.2 pg (25.7-33.7); MCHC 32.9 g/dl (32.0-35.9); MEAN PLT VOLUME 8.4 fl (7.5-11.1); PLATELET COUNT 115 K/MM3 (134-434); POTASSIUM 4.1 mmol/L (3.5-5.1); RBC 2.68 M/mm3 (4.00-5.60); RDW 13.1 % (11.9-15.9); SGOT/AST 52 U/L (15-37); SGPT/ALT 36 U/L (13-61); SODIUM 132 mmol/L (136-145); TOT PROT 5.1 g/dl (6.4-8.2); WHITE BLOOD COUNT 2.1 K/mm3 (4.0-10.8)
[2018-11-03 11:59] LABS: INR 1.52 (0.82-1.09); PROTHROMBIN TIME (PATIENT) 16.9 SEC (10.2-13.0)
--- NOTE | 2018-11-03 11:59 | PDOC ---
History of Present Illness - General Chief Complaint: Altered Mental Status Stated Complaint: DISORIENTED Time Seen by Provider: 11/03/18 10:57 History Source: Patient (limited by AMS), Family - History of Present Illness Initial Comments: 11/03/18 11:52 68-year-old male with extensive medical history including non-Hodgkin's lymphoma , Kaposi sarcoma, NIDDM, CAD/CABG, h/o hep E, chronically elevated transaminases with ascites requiring regular therapeutic paracentesis in his usoh until about 2d ago, when family began noticing declining mental status/ confusion, and today physically weak and disoriented. No falls noted. Family has noted that he has been constipated despite miralax, and has had elevated ammonia in the past. Also with h/o UTI (admitted to [facility] in August, seen in ED and discharged on Cipro in september) and noted to have polyuria without dysuria earlier this week. Saw Dr. Duvall Wednesday but UA was clear. Presents today because of increasing confusion and now physical weakness. no measured f/c/night sweats. no cp/new cough/sob abdomen at baseline and not notably distended as in past Past History - Past Medical History Allergies/Adverse Reactions: Allergies Allergy/AdvReac Type Severity Reaction Status Date / Time No Known Allergies Allergy Verified 11/03/18 10:47 Home Medications: Ambulatory Orders Aspirin [ASA -] 81 mg PO DAILY 06/07/14 Levothyroxine [Synthroid -] 100 mcg PO DAILY@0700 tablet 10/11/17 Sitagliptin Phosphate [Januvia -] 100 mg PO DAILY@0700 #30 ud 10/11/17 Benzonatate 200 mg PO TID 10/08/18 Filgrastim [Neupogen] 480 mcg IJ DAILY 10/08/18 Furosemide [Lasix] 40 mg PO DAILY 10/08/18 Polyethylene Glycol 3350 [Miralax 119 gm Btl -] 0 gm PO DAILY 10/08/18 Ribavirin 400 mg PO AM 10/08/18 Ribavirin 600 mg PO HS 10/08/18 Valacyclovir HCl [Valtrex -] 500 mg PO DAILY 10/08/18 Phenazopyridine HCl [Pyridium] 200 mg PO TID PRN #21 tablet 10/15/18 Spironolactone [Aldactone] 100 mg PO DAILY 11/03/18 Anemia: No Asthma: No Cancer: Yes (lymphoma NHL) Cardiac Disorders: Yes (CABG) CVA: No COPD: No CHF: No DVT: No Dementia: No Diabetes: Yes GI Disorders: Yes (GB) Disorders: No HTN: No Hypercholesterolemia: No Liver Disease: Yes (ACSCITES) Seizures: No Thyroid Disease: Yes Other medical history: KAPSOI, HEPATITIS - Surgical History Abdominal Surgery: Yes (UMBILICAL hernia repair) Cardiac Surgery: Yes (05/07 double bypass) Cholecystectomy: Yes Lung Surgery: (LYMP NODE REMOVED CHEST WALL) - Immunization History Td Vaccination: No TDAP Vaccination: No Immunization Up to Date: No - Suicide/Smoking/Psychosocial Hx Smoking History: Unknown if ever smoked Have you smoked in the past 12 months: No Number of Cigarettes Smoked Daily: 0 If you are a former smoker, when did you quit?: 30 YEASR AGO Cigars Per Day: 0 Hx Alcohol Use: No Drug/Substance Use Hx: No Substance Use Type: None Hx Substance Use Treatment: No Review of Systems - Review of Systems Able to Perform ROS?: No (limited 2/2 mental status) Constitutional: No: Chills, Fever : Yes: Frequency *Physical Exam - Vital Signs Last Vital Signs Temp Pulse Resp BP Pulse Ox 97.1 F L 58 L 19 129/59 L 93 L 11/03/18 10:52 11/03/18 10:52 11/03/18 10:52 11/03/18 10:52 11/03/18 10:52 - Physical Exam Comments: 11/03/18 12:00 Temp 97.1, O2 sat as noted on room air, blood pressure within normal limits GENERAL: The patient is awake, chronically ill appearing, mumbling words HEAD: Normal with no signs of trauma. EYES: PERRL, EOMI, conjunctiva clear with slight pallor. ENT: oropharynx clear, dry mucous membranes. NECK: Normal range of motion, supple without lymphadenopathy, JVD, or masses. LUNGS: bibasilar crackles, otherwise good air entry and clear HEART: Regular rate and rhythm, normal S1 and S2 without murmur or rub. ABDOMEN: Soft/nontender/nondistended. BS wnl. + fluid wave, no guarding or rebound. No palpable masses. EXTREMITIES: Normal range of motion, 1+ edema RLE surrounding more extensive KS lesions. 2+ distal pulses. No erythema or tenderness. NEUROLOGICAL: limited, moving all extremities and face symmetric PSYCH: deferred SKIN: KS lesions throughout, no bleeding or rash. Heart Score/ECG Review #1 ECG reviewed & interpreted by me at: 12:05 General ECG Interpretation: Sinus Rhythm, Normal Rate (56), Normal Intervals ( qtc 445), No acute ischemic changes ED Treatment Course - LABORATORY CBC & Chemistry Diagram: 11/03/18 11:07 11/03/18 11:07 - RADIOLOGY Radiology Studies Ordered: Category Date Time Status CHEST X-RAY PORTABLE* [RAD] Stat Radiology 11/03/18 11:07 Taken Medical Decision Making - Medical Decision Making 11/03/18 12:04 68-year-old male with multiple medical problems including non-Hodgkin's lymphoma , Kaposi sarcoma, transaminitis in the past with hepatic encephalopathy presents now with declining mental status and increasing confusion over the last 48 hours, hemodynamically stable here and afebrile. Question recurrence of hepatic encephalopathy, rule out sepsis, rule out intracranial process. Sepsis protocol initiated, added ammonia Chest x-ray, CT head EKG Urinalysis given history of UTI Will need admission 11/03/18 12:48 Baseline mild pancytopenia unchanged 10/31, baseline LFTs with otherwise normal kidney function, mild baseline hyponatremia. CT head without acute pathology, chest x-ray without acute pathology Ammonia and lactic acid pending, treated empirically with lactulose given the recent constipation and high suspicion for hepatic encephalopathy. Awaiting results, will proceed with admission. 11/03/18 13:21 lactate 3, receiving iv hydration. ammonia still pending, empirically treated with lactulose and tolerated well. Accepted for inpatient med/surg by Dr. Robert, covering Dr. Rodriguez, signout given to LEBRON Ferraro. Team will involve Dr. Duvall. 11/03/18 15:00 UA clear, no infection. Ammonia still pending, already treated. Clinically unchanged, awaiting bed. *DC/Admit/Observation/Transfer Diagnosis at time of Disposition: Transient alteration of awareness, Hepatic encephalopathy, Elevated lactic acid level - Discharge Dispostion Condition at time of disposition: Fair Decision to Admit order: Yes - Referrals Referrals: Jovany Rodriguez MD [Primary Care Provider] - - Patient Instructions - Post Discharge Activity
[2018-11-03] MEDS ORDERED: LACTULOSE 20 GM/30 ML UDC (FOR ORAL USE ONLY) PO ONE (12:30)
[2018-11-03] MEDS ORDERED: LACTULOSE 20 GM/30 ML UDC (FOR ORAL USE ONLY) ONE ×2 (12:53→16:09)
[2018-11-03] MEDS ORDERED: SODIUM CHLORIDE 1,000 ML IV ONE (13:11)
[2018-11-03 14:20] LABS: EOS % 2.5 % (0-4.5); LYMPH % 17.9 % (8-40); MONO % 20.2 % (3.8-10.2); NEUT % 59.4 % (42.8-82.8)
[2018-11-03 14:21] LABS: ADD RBC MORPHOLOGY NO
--- NOTE | 2018-11-03 14:27 | HP ---
CHIEF COMPLAINT: Confusion PCP: Dr. Rodriguez Oncologist: Dr. Duvall HISTORY OF PRESENT ILLNESS: 68 year-old male with a PMH signficant for CAD, Non-Hodgkins lymphoma, ascites s /p therapeutic paracenteses, Hep E, Kaposi sarcoma, and Type II NIDDM. Brought to ED today by reporting patient has been confused and altered for past 24 hours (staring, throwing odd things in garbage, trying to lift the entire toilet bowl off the floor). She suspects he has not been taking his Miralax for past several days. He has exhibited similar behavior in past when ammonia elevated. ER course was notable for: (1) WBC 2.1 (2) Total bili 2.4, AST 52, Alk phos 200 (3) Lactic acid 3.0 Recent Travel: No PAST MEDICAL HISTORY: Coronary artery disease Non Hodgkins lymphoma (diagnosed 2004) Hepatitis E Transaminitis Ascites Kaposi sarcoma Type II NIDDM Recurrent UTIs (08/2018, 09/2018) PAST SURGICAL HISTORY: Coronary bypass Umbilical hernia repair Cholecystectomy 2013 Social History: Smoking: Alcohol: Drugs: Family History: Allergies No Known Allergies Allergy (Verified 11/03/18 10:47) HOME MEDICATIONS: Home Medications Medication Instructions Recorded Aspirin [ASA -] 81 mg PO DAILY 06/07/14 Levothyroxine [Synthroid -] 100 mcg PO DAILY@0700 tablet 10/11/17 Sitagliptin Phosphate [Januvia -] 100 mg PO DAILY@0700 #30 ud 10/11/17 Benzonatate 200 mg PO TID 10/08/18 Filgrastim [Neupogen] 480 mcg IJ DAILY 10/08/18 Furosemide [Lasix] 40 mg PO DAILY 10/08/18 Polyethylene Glycol 3350 [Miralax 0 gm PO DAILY 10/08/18 119 gm Btl -] Ribavirin 400 mg PO AM 10/08/18 Ribavirin 600 mg PO HS 10/08/18 Valacyclovir HCl [Valtrex -] 500 mg PO DAILY 10/08/18 Phenazopyridine HCl [Pyridium] 200 mg PO TID PRN #21 tablet 10/15/18 Spironolactone [Aldactone] 100 mg PO DAILY 11/03/18 REVIEW OF SYSTEMS CONSTITUTIONAL: Absent: fever, chills, diaphoresis, generalized weakness, malaise, loss of appetite, weight change HEENT: Absent: rhinorrhea, nasal congestion, throat pain, throat swelling, difficulty swallowing, mouth swelling, ear pain, eye pain, visual changes CARDIOVASCULAR: Absent: chest pain, syncope, palpitations, irregular heart rate, lightheadedness , peripheral edema RESPIRATORY: Absent: cough, shortness of breath, dyspnea with exertion, orthopnea, wheezing, stridor, hemoptysis GASTROINTESTINAL: Absent: abdominal pain, abdominal distension, nausea, vomiting, diarrhea, constipation, melena, hematochezia GENITOURINARY: Absent: dysuria, frequency, urgency, hesitancy, hematuria, flank pain, genital pain MUSCULOSKELETAL: Absent: myalgia, arthralgia, joint swelling, back pain, neck pain SKIN: Absent: rash, itching, pallor HEMATOLOGIC/IMMUNOLOGIC: Absent: easy bleeding, easy bruising, lymphadenopathy, frequent infections ENDOCRINE: Absent: unexplained weight gain, unexplained weight loss, heat intolerance, cold intolerance NEUROLOGIC: +mental status changes Absent: headache, focal weakness or paresthesias, dizziness, unsteady gait, seizure, bladder or bowel incontinence PSYCHIATRIC: Absent: anxiety, depression, suicidal or homicidal ideation, hallucinations. PHYSICAL EXAMINATION Vital Signs - 24 hr 11/03/18 11/03/18 10:52 11:07 Temperature 97.1 F L Pulse Rate 58 L Pulse Rate [ 70 Apical] Respiratory 19 18 Rate Blood Pressure 129/59 L Blood Pressure 124/63 [Left Arm] O2 Sat by Pulse 93 L 96 Oximetry (%) GENERAL: Awake. Oriented x 3. Tearful. Weak, ill-appearing. EYES: Pupils equal, round and reactive to light, extraocular movements intact, sclera icteric EARS, NOSE, THROAT: oropharynx clear, dry mucous membranes. LUNGS: Breath sounds equal, clear to auscultation bilaterally. No wheezes, and no crackles. No accessory muscle use. HEART: Regular rate and rhythm, normal S1 and S2 ABDOMEN: Soft, nontender, not distended, hypoactive bowel sounds, no guarding, no rebound tenderness UPPER EXTREMITIES: 2+ pulses, warm, well-perfused. No cyanosis. No clubbing. No peripheral edema. LOWER EXTREMITIES: 2+ pulses, warm, well-perfused. No calf tenderness. No peripheral edema. NEUROLOGICAL: Cranial nerves II-XII intact. Normal speech. Gait not observed SKIN: Bronze, jaundiced; Karposi lesions on face, groin, bilateral lower extremities Laboratory Results - last 24 hr 11/03/18 11/03/18 11/03/18 11:07 11:07 11:07 WBC 2.1 L RBC 2.68 L Hgb 10.2 L Hct 31.1 L MCV 116.0 H MCH 38.2 H MCHC 32.9 RDW 13.1 Plt Count 115 L MPV 8.4 Absolute Neuts (auto) 0.2 Neutrophils % 59.4 Neutrophils % (Manual) No Result Required. Lymphocytes % 17.9 Monocytes % 20.2 H Eosinophils % 2.5 Basophils % 0.0 PT with INR 16.9 H INR 1.52 H PTT (Actin FS) 29.1 Sodium 132 L Potassium 4.1 Chloride 98 Carbon Dioxide 23 Anion Gap 11 BUN 32 H Creatinine 1.2 Creat Clearance w eGFR 59.86 Random Glucose 244 H Lactic Acid Calcium 8.8 Total Bilirubin 2.4 H AST 52 H ALT 36 Alkaline Phosphatase 200 H D Creatine Kinase Troponin I Total Protein 5.1 L Albumin 3.2 L Urine Color Urine Appearance Urine pH Urine Protein Urine Glucose (UA) Urine Ketones Urine Blood Urine Nitrite Urine Bilirubin Urine Urobilinogen Ur Leukocyte Esterase 11/03/18 11/03/18 11/03/18 11:07 11:28 11:28 WBC RBC Hgb Hct MCV MCH MCHC RDW Plt Count MPV Absolute Neuts (auto) Neutrophils % Neutrophils % (Manual) Lymphocytes % Monocytes % Eosinophils % Basophils % PT with INR INR PTT (Actin FS) Sodium Potassium Chloride Carbon Dioxide Anion Gap BUN Creatinine Creat Clearance w eGFR Random Glucose Lactic Acid 3.0 H* Calcium Total Bilirubin AST ALT Alkaline Phosphatase Creatine Kinase 23 L Troponin I < 0.03 Total Protein Albumin Urine Color Urine Appearance Urine pH Urine Protein Urine Glucose (UA) Urine Ketones Urine Blood Urine Nitrite Urine Bilirubin Urine Urobilinogen Ur Leukocyte Esterase 11/03/18 12:50 WBC RBC Hgb Hct MCV MCH MCHC RDW Plt Count MPV Absolute Neuts (auto) Neutrophils % Neutrophils % (Manual) Lymphocytes % Monocytes % Eosinophils % Basophils % PT with INR INR PTT (Actin FS) Sodium Potassium Chloride Carbon Dioxide Anion Gap BUN Creatinine Creat Clearance w eGFR Random Glucose Lactic Acid Calcium Total Bilirubin AST ALT Alkaline Phosphatase Creatine Kinase Troponin I Total Protein Albumin Urine Color Yellow Urine Appearance Clear Urine pH 7.0 D Urine Protein Negative Urine Glucose (UA) Negative Urine Ketones Negative Urine Blood Negative Urine Nitrite Negative Urine Bilirubin Negative Urine Urobilinogen 1.0 Ur Leukocyte Esterase Negative 10/08/18 CTAP: moderate amount of ascites; liver is normal in size and techture , few cysts ASSESSMENT/PLAN 68 year-old male with a PMH signficant for CAD, non-Hodgkins lymphoma, Hep E, transaminitis, ascites s/p therapeutic paracenteses, Kaposi sarcoma, Type II NIDDM, and recurrent UTIs. Hospitalized at [facility] x 2 weeks early September 2018 for low blood count, fluid build up, anemia, and hepatitis E. Admitted now for hepatic encephalopathy. Hepatic encephalopathy Transaminitis --has not had BM for several days and family observed altered, bizarre behavior --ammonia level elevated --start lactulose TID, titrate to 3-4 BMs per day --IV fluids Lactic acidosis, resolved --lactic acid 3.0 on admission, now 2.0 --treated with gentle IV fluids Ascites --per , patient had significant lower extremity edema last week and Dr. Duvall told her to resume spironolactone/lasix --therapeutic paracentesis: 5L on 08/30/18; 2L on 10/11/18 Non-Hodgkins lymphoma Hepatitis E --on riboavirin Kaposi sarcoma Type II NIDDM --Novolog sliding scale coverage Visit type - Emergency Visit Emergency Visit: Yes ED Registration Date: 11/03/18 Care time: The patient presented to the Emergency Department on the above date and was hospitalized for further evaluation of their emergent condition. - New Patient This patient is new to me today: Yes Date on this admission: 11/03/18 - Critical Care Critical Care patient: No
[2018-11-03 15:00] LABS: VENOUS PC02 36.5 mmHg (41-51); VENOUS PH 7.45 (7.31-7.41)
[2018-11-03 15:01] LABS: VENOUS PO2 23.3 mmHg (30-40)
[2018-11-03] MEDS: LACTULOSE 20 GM/30 ML UDC (FOR ORAL USE ONLY) PO SCH ×2 (16:11→21:38)
--- NOTE | 2018-11-03 16:38 | EKG ---
Test Reason : Blood Pressure : / mmHG Vent. Rate : 056 BPM Atrial Rate : 056 BPM P-R Int : 200 ms QRS Dur : 076 ms QT Int : 462 ms P-R-T Axes : 071 -02 -04 degrees QTc Int : 445 ms SINUS BRADYCARDIA CANNOT RULE OUT INFERIOR INFARCT (CITED ON OR BEFORE 09-OCT-2017) ABNORMAL ECG WHEN COMPARED WITH ECG OF 16-DEC-2017 11:05, NO SIGNIFICANT CHANGE WAS FOUND Confirmed by JASPREET HARVEY, MICHELLE ([id number]) on 11/03/2018 4:38:08 PM Referred By: RODGER GARCIA Confirmed By:MICHELLE VOGEL MD
[2018-11-03] MEDS ORDERED: INSULIN (NOVOLOG) ASPART 100 UNITS/ML 10ML VIAL ONE ×2 (16:56→21:47)
[2018-11-03] MEDS: INSULIN SLIDING SCALE (NOVOLOG) 1 VIAL SQ SCH ×2 (16:58→21:48)
[2018-11-03 19:04] VITALS: BMI 26.7
[2018-11-03] MEDS: HEPARIN NA (PORCINE) 5,000 UNITS/ML 1ML VIAL SQ SCH (21:38)
[2018-11-03] MEDS ORDERED: RIBAVIRIN 600 MG PO SCH (22:00)
[2018-11-04] MEDS: LACTULOSE 20 GM/30 ML UDC (FOR ORAL USE ONLY) PO SCH (05:55)
[2018-11-04] MEDS: HEPARIN NA (PORCINE) 5,000 UNITS/ML 1ML VIAL SQ SCH (05:56)
[2018-11-04] MEDS: INSULIN SLIDING SCALE (NOVOLOG) 1 VIAL SQ SCH ×2 (06:23→11:52)
[2018-11-04] MEDS ORDERED: RIBAVIRIN PO SCH (07:00)
[2018-11-04] MEDS ORDERED: LEVOTHYROXINE NA 100 MCG TABLET (FP) PO SCH (07:00)
[2018-11-04 07:25] LABS: BASO % 2.2 % (0-2.0); EOS % 2.3 % (0-4.5); HEMATOCRIT 29.2 % (35.4-49); HEMOGLOBIN 9.7 GM/dl (11.7-16.9); LYMPH % 13.5 % (8-40); MCH 38.2 pg (25.7-33.7); MCHC 33.2 g/dl (32.0-35.9); MEAN PLT VOLUME 7.9 fl (7.5-11.1); MONO % 11.4 % (3.8-10.2); NEUT % 70.6 % (42.8-82.8); PLATELET COUNT 103 K/MM3 (134-434); RBC 2.54 M/mm3 (4.00-5.60); WHITE BLOOD COUNT 2.8 K/mm3 (4.0-10.8)
[2018-11-04 07:40] LABS: AMYLASE 63 U/L (25-115)
[2018-11-04 07:45] LABS: ALBUMIN 2.8 g/dl (3.4-5.0); ALK PHOS 136 U/L (45-117); ANION GAP 5 MMOL/L (8-16); BILIRUBIN,DIRECT 0.8 mg/dL (0.0-0.2); BILIRUBIN,TOTAL 2.5 mg/dl (0.2-1); BLOOD UREA NITROGEN 25 mg/dl (7-18); CALCIUM 8.3 mg/dl (8.5-10); CHLORIDE 109 mmol/L (98-107); CO2 21 mmol/L (21-32); CREATININE 1.1 mg/dl (0.55-1.3); GLUCOSE,RANDOM 198 mg/dl (74-106); MAGNESIUM 1.5 mg/dL (1.8-2.4); POTASSIUM 4.2 mmol/L (3.5-5.1); SGOT/AST 50 U/L (15-37); SGPT/ALT 33 U/L (13-61); SODIUM 135 mmol/L (136-145); TOT PROT 4.4 g/dl (6.4-8.2)
[2018-11-04] MEDS ORDERED: MAGNESIUM SULF 50% (8.12 MEQ/2 ML-1 GM VIAL) IVPB ONE (08:35)
[2018-11-04 08:43] LABS: LIPASE 368 U/L (73-393)
[2018-11-04] MEDS ORDERED: MAGNESIUM SULFATE IN WATER 2 GM/50 ML IVPB IVPB ONE (09:00)
[2018-11-04 09:14] VITALS: BP 130/54; PULSE 73; TEMP 98.6
[2018-11-04] MEDS ORDERED: SPIRONOLACTONE 25 MG TABLET (FP) PO SCH (10:00)
[2018-11-04] MEDS ORDERED: FUROSEMIDE 40 MG TABLET (FP) PO SCH ×2 (10:00→11:00)
[2018-11-04] MEDS ORDERED: valACYclovir HCL 500 MG TABLET (FP) PO SCH (10:00)
[2018-11-04] MEDS ORDERED: ASPIRIN 81 MG CHEWABLE TABLETS PO SCH (10:00)
--- NOTE | 2018-11-04 11:25 | PN ---
Physical Exam: SUBJECTIVE: Patient seen and examined at bedside. More alert, answering questions appropriately. Watching [employer]. 3 BMs overnight, 3 more this morning. OBJECTIVE: Vital Signs Period Temp Pulse Resp BP Sys/[place] Pulse Ox Last 24 Hr 98.1 F-98.9 F 65-80 16-18 117-130/46-63 96-100 GENERAL: The patient is awake, alert, and fully oriented. LUNGS: Breath sounds equal, clear to auscultation bilaterally. No wheezes, and no crackles. No accessory muscle use. HEART: Regular rate and rhythm, normal S1 and S2 ABDOMEN: Soft, nontender, not distended UPPER EXTREMITIES: 2+ pulses, warm, well-perfused. No cyanosis. No clubbing. No peripheral edema. LOWER EXTREMITIES: 2+ pulses, warm, well-perfused. No calf tenderness. No peripheral edema. NEUROLOGICAL: Cranial nerves II-XII intact. Normal speech. Gait not observed SKIN: Bronze, jaundiced; Karposi lesions on face, groin, bilateral lower extremities Laboratory Results - last 24 hr 11/03/18 11/03/18 11/03/18 11:07 11:07 11:07 WBC 2.1 L RBC 2.68 L Hgb 10.2 L Hct 31.1 L MCV 116.0 H MCH 38.2 H MCHC 32.9 RDW 13.1 Plt Count 115 L MPV 8.4 Absolute Neuts (auto) 0.2 Neutrophils % 59.4 Neutrophils % (Manual) No Result Required. Lymphocytes % 17.9 Monocytes % 20.2 H Eosinophils % 2.5 Basophils % 0.0 PT with INR 16.9 H INR 1.52 H PTT (Actin FS) 29.1 VBG pH 7.45 H POC VBG pCO2 36.5 L POC VBG pO2 23.3 L VBG HCO3 25.0 VBG O2 Sat (Felicia) 27.1 L VBG Base Excess 1.4 Sodium Potassium Chloride Carbon Dioxide Anion Gap BUN Creatinine Creat Clearance w eGFR POC Glucometer Random Glucose Lactic Acid Calcium Magnesium Total Bilirubin Direct Bilirubin AST ALT Alkaline Phosphatase Ammonia Creatine Kinase Troponin I Total Protein Albumin Total Amylase Lipase TSH Urine Color Urine Appearance Urine pH Urine Protein Urine Glucose (UA) Urine Ketones Urine Blood Urine Nitrite Urine Bilirubin Urine Urobilinogen Ur Leukocyte Esterase 11/03/18 11/03/18 11/03/18 11:07 11:07 11:07 WBC RBC Hgb Hct MCV MCH MCHC RDW Plt Count MPV Absolute Neuts (auto) Neutrophils % Neutrophils % (Manual) Lymphocytes % Monocytes % Eosinophils % Basophils % PT with INR INR PTT (Actin FS) VBG pH POC VBG pCO2 POC VBG pO2 VBG HCO3 VBG O2 Sat (Felicia) VBG Base Excess Sodium 132 L Potassium 4.1 Chloride 98 Carbon Dioxide 23 Anion Gap 11 BUN 32 H Creatinine 1.2 Creat Clearance w eGFR 59.86 POC Glucometer Random Glucose 244 H Lactic Acid 3.0 H* Calcium 8.8 Magnesium Total Bilirubin 2.4 H Direct Bilirubin AST 52 H ALT 36 Alkaline Phosphatase 200 H D Ammonia 56.20 H Creatine Kinase Troponin I Total Protein 5.1 L Albumin 3.2 L Total Amylase Lipase TSH Urine Color Urine Appearance Urine pH Urine Protein Urine Glucose (UA) Urine Ketones Urine Blood Urine Nitrite Urine Bilirubin Urine Urobilinogen Ur Leukocyte Esterase 11/03/18 11/03/18 11/03/18 11:28 11:28 12:50 WBC RBC Hgb Hct MCV MCH MCHC RDW Plt Count MPV Absolute Neuts (auto) Neutrophils % Neutrophils % (Manual) Lymphocytes % Monocytes % Eosinophils % Basophils % PT with INR INR PTT (Actin FS) VBG pH POC VBG pCO2 POC VBG pO2 VBG HCO3 VBG O2 Sat (Felicia) VBG Base Excess Sodium Potassium Chloride Carbon Dioxide Anion Gap BUN Creatinine Creat Clearance w eGFR POC Glucometer Random Glucose Lactic Acid Calcium Magnesium Total Bilirubin Direct Bilirubin AST ALT Alkaline Phosphatase Ammonia Creatine Kinase 23 L Troponin I < 0.03 Total Protein Albumin Total Amylase Lipase TSH Urine Color Yellow Urine Appearance Clear Urine pH 7.0 D Urine Protein Negative Urine Glucose (UA) Negative Urine Ketones Negative Urine Blood Negative Urine Nitrite Negative Urine Bilirubin Negative Urine Urobilinogen 1.0 Ur Leukocyte Esterase Negative 11/03/18 11/03/18 11/03/18 16:07 20:30 21:44 WBC RBC Hgb Hct MCV MCH MCHC RDW Plt Count MPV Absolute Neuts (auto) Neutrophils % Neutrophils % (Manual) Lymphocytes % Monocytes % Eosinophils % Basophils % PT with INR INR PTT (Actin FS) VBG pH POC VBG pCO2 POC VBG pO2 VBG HCO3 VBG O2 Sat (Felicia) VBG Base Excess Sodium Potassium Chloride Carbon Dioxide Anion Gap BUN Creatinine Creat Clearance w eGFR POC Glucometer 197 238 Random Glucose Lactic Acid 2.6 H* Calcium Magnesium Total Bilirubin Direct Bilirubin AST ALT Alkaline Phosphatase Ammonia Creatine Kinase Troponin I Total Protein Albumin Total Amylase Lipase TSH Urine Color Urine Appearance Urine pH Urine Protein Urine Glucose (UA) Urine Ketones Urine Blood Urine Nitrite Urine Bilirubin Urine Urobilinogen Ur Leukocyte Esterase 11/04/18 11/04/18 11/04/18 06:19 07:10 07:10 WBC 2.8 L RBC 2.54 L Hgb 9.7 L Hct 29.2 L MCV 115.0 H MCH 38.2 H MCHC 33.2 RDW 13.0 Plt Count 103 L MPV 7.9 Absolute Neuts (auto) 1.9 Neutrophils % 70.6 Neutrophils % (Manual) Lymphocytes % 13.5 D Monocytes % 11.4 H Eosinophils % 2.3 Basophils % 2.2 H D PT with INR INR PTT (Actin FS) VBG pH POC VBG pCO2 POC VBG pO2 VBG HCO3 VBG O2 Sat (Felicia) VBG Base Excess Sodium 135 L Potassium 4.2 Chloride 109 H Carbon Dioxide 21 Anion Gap 5 L BUN 25 H Creatinine 1.1 Creat Clearance w eGFR 66.18 POC Glucometer 175 Random Glucose 198 H Lactic Acid Calcium 8.3 L Magnesium 1.5 L Total Bilirubin 2.5 H Direct Bilirubin 0.8 H AST 50 H ALT 33 Alkaline Phosphatase 136 H D Ammonia Creatine Kinase Troponin I Total Protein 4.4 L Albumin 2.8 L Total Amylase Lipase TSH 8.64 H Urine Color Urine Appearance Urine pH Urine Protein Urine Glucose (UA) Urine Ketones Urine Blood Urine Nitrite Urine Bilirubin Urine Urobilinogen Ur Leukocyte Esterase 11/04/18 11/04/18 07:10 07:54 WBC RBC Hgb Hct MCV MCH MCHC RDW Plt Count MPV Absolute Neuts (auto) Neutrophils % Neutrophils % (Manual) Lymphocytes % Monocytes % Eosinophils % Basophils % PT with INR INR PTT (Actin FS) VBG pH POC VBG pCO2 POC VBG pO2 VBG HCO3 VBG O2 Sat (Felicia) VBG Base Excess Sodium Potassium Chloride Carbon Dioxide Anion Gap BUN Creatinine Creat Clearance w eGFR POC Glucometer Random Glucose Lactic Acid 2.0 Calcium Magnesium Total Bilirubin Direct Bilirubin AST ALT Alkaline Phosphatase Ammonia Creatine Kinase Troponin I Total Protein Albumin Total Amylase 63 Lipase 368 TSH Urine Color Urine Appearance Urine pH Urine Protein Urine Glucose (UA) Urine Ketones Urine Blood Urine Nitrite Urine Bilirubin Urine Urobilinogen Ur Leukocyte Esterase Active Medications Generic Name Dose Route Start Last Admin Trade Name Westleyq PRN Reason Stop Dose Admin Aspirin 81 mg 11/04/18 10:00 11/04/18 09:40 Asa - PO 81 mg DAILY [facility] Administration Furosemide 40 mg 11/04/18 11:00 Lasix - PO DAILY [facility] Heparin Sodium (Porcine) 5,000 unit 11/03/18 22:00 11/04/18 05:56 Heparin - SQ 5,000 unit TID [facility] Administration Insulin Aspart 1 vial 11/03/18 16:30 11/04/18 06:23 Novolog Vial Sliding Scale - SQ 2 units ACHS [facility] Administration Protocol Lactulose 20 gm 11/03/18 16:00 11/04/18 05:55 Cephulac (Oral Use) PO 20 gm TID [facility] Administration Levothyroxine Sodium 100 mcg 11/04/18 07:00 11/04/18 06:07 Synthroid - PO 100 mcg DAILY@0700 ROSLYN Administration Non-Formulary Medication 600 mg 11/03/18 22:00 Ribavirin [Ribavirin] PO HS [facility] Non-Formulary Medication 400 mg 11/04/18 07:00 Ribavirin [Ribavirin] PO AM [facility] Spironolactone 100 mg 11/04/18 10:00 11/04/18 09:40 Aldactone - PO 100 mg DAILY [facility] Administration Valacyclovir HCl 500 mg 11/04/18 10:00 11/04/18 09:40 Valtrex - PO 500 mg DAILY [facility] Administration ASSESSMENT/PLAN
[2018-11-04] MEDS ORDERED: INSULIN (NOVOLOG) ASPART 100 UNITS/ML 10ML VIAL ONE (11:48)
--- NOTE | 2018-11-04 12:34 | DS ---
Physical Exam: SUBJECTIVE: Patient seen and examined at bedside. More alert, answering questions appropriately. Watching [employer]. 3 BMs overnight, 3 more this morning. OBJECTIVE: Vital Signs Period Temp Pulse Resp BP Sys/[place] Pulse Ox Last 24 Hr 98.1 F-98.9 F 65-80 16-18 117-130/46-63 98-100 PHYSICAL EXAM GENERAL: The patient is awake, alert, and fully oriented, in no acute distress. LUNGS: Breath sounds equal, clear to auscultation bilaterally, no wheezes, no crackles, no accessory muscle use. HEART: Regular rate and rhythm, S1, S2 ABDOMEN: Soft, nontender, nondistended EXTREMITIES: 2+ pulses, warm, well-perfused, no edema. NEUROLOGICAL: Cranial nerves II through XII grossly intact. Normal speech, gait not observed. SKIN: Jaundiced; Karposi lesions on face, groin, bilateral lower extremities LABS Laboratory Results - last 24 hr 11/03/18 11/03/18 11/03/18 11:07 11:07 11:07 WBC RBC Hgb Hct MCV MCH MCHC RDW Plt Count MPV Absolute Neuts (auto) Neutrophils % 59.4 Neutrophils % (Manual) No Result Required. Lymphocytes % 17.9 Monocytes % 20.2 H Eosinophils % 2.5 Basophils % 0.0 VBG pH 7.45 H POC VBG pCO2 36.5 L POC VBG pO2 23.3 L VBG HCO3 25.0 VBG O2 Sat (Felicia) 27.1 L VBG Base Excess 1.4 Sodium Potassium Chloride Carbon Dioxide Anion Gap BUN Creatinine Creat Clearance w eGFR POC Glucometer Random Glucose Lactic Acid Calcium Magnesium Total Bilirubin Direct Bilirubin AST ALT Alkaline Phosphatase Ammonia 56.20 H Total Protein Albumin Total Amylase Lipase TSH Free T4 Urine Color Urine Appearance Urine pH Urine Protein Urine Glucose (UA) Urine Ketones Urine Blood Urine Nitrite Urine Bilirubin Urine Urobilinogen Ur Leukocyte Esterase 11/03/18 11/03/18 11/03/18 11:07 12:50 16:07 WBC RBC Hgb Hct MCV MCH MCHC RDW Plt Count MPV Absolute Neuts (auto) Neutrophils % Neutrophils % (Manual) Lymphocytes % Monocytes % Eosinophils % Basophils % VBG pH POC VBG pCO2 POC VBG pO2 VBG HCO3 VBG O2 Sat (Felicia) VBG Base Excess Sodium Potassium Chloride Carbon Dioxide Anion Gap BUN Creatinine Creat Clearance w eGFR POC Glucometer 197 Random Glucose Lactic Acid 3.0 H* Calcium Magnesium Total Bilirubin Direct Bilirubin AST ALT Alkaline Phosphatase Ammonia Total Protein Albumin Total Amylase Lipase TSH Free T4 Urine Color Yellow Urine Appearance Clear Urine pH 7.0 D Urine Protein Negative Urine Glucose (UA) Negative Urine Ketones Negative Urine Blood Negative Urine Nitrite Negative Urine Bilirubin Negative Urine Urobilinogen 1.0 Ur Leukocyte Esterase Negative 11/03/18 11/03/18 11/04/18 20:30 21:44 06:19 WBC RBC Hgb Hct MCV MCH MCHC RDW Plt Count MPV Absolute Neuts (auto) Neutrophils % Neutrophils % (Manual) Lymphocytes % Monocytes % Eosinophils % Basophils % VBG pH POC VBG pCO2 POC VBG pO2 VBG HCO3 VBG O2 Sat (Felicia) VBG Base Excess Sodium Potassium Chloride Carbon Dioxide Anion Gap BUN Creatinine Creat Clearance w eGFR POC Glucometer 238 175 Random Glucose Lactic Acid 2.6 H* Calcium Magnesium Total Bilirubin Direct Bilirubin AST ALT Alkaline Phosphatase Ammonia Total Protein Albumin Total Amylase Lipase TSH Free T4 Urine Color Urine Appearance Urine pH Urine Protein Urine Glucose (UA) Urine Ketones Urine Blood Urine Nitrite Urine Bilirubin Urine Urobilinogen Ur Leukocyte Esterase 11/04/18 11/04/18 11/04/18 06:45 07:10 07:10 WBC 2.8 L RBC 2.54 L Hgb 9.7 L Hct 29.2 L MCV 115.0 H MCH 38.2 H MCHC 33.2 RDW 13.0 Plt Count 103 L MPV 7.9 Absolute Neuts (auto) 1.9 Neutrophils % 70.6 Neutrophils % (Manual) Lymphocytes % 13.5 D Monocytes % 11.4 H Eosinophils % 2.3 Basophils % 2.2 H D VBG pH POC VBG pCO2 POC VBG pO2 VBG HCO3 VBG O2 Sat (Felicia) VBG Base Excess Sodium 135 L Potassium 4.2 Chloride 109 H Carbon Dioxide 21 Anion Gap 5 L BUN 25 H Creatinine 1.1 Creat Clearance w eGFR 66.18 POC Glucometer Random Glucose 198 H Lactic Acid Calcium 8.3 L Magnesium 1.5 L Total Bilirubin 2.5 H Direct Bilirubin 0.8 H AST 50 H ALT 33 Alkaline Phosphatase 136 H D Ammonia Total Protein 4.4 L Albumin 2.8 L Total Amylase Lipase TSH 8.64 H Free T4 1.17 H Urine Color Urine Appearance Urine pH Urine Protein Urine Glucose (UA) Urine Ketones Urine Blood Urine Nitrite Urine Bilirubin Urine Urobilinogen Ur Leukocyte Esterase 11/04/18 11/04/18 11/04/18 07:10 07:54 11:45 WBC RBC Hgb Hct MCV MCH MCHC RDW Plt Count MPV Absolute Neuts (auto) Neutrophils % Neutrophils % (Manual) Lymphocytes % Monocytes % Eosinophils % Basophils % VBG pH POC VBG pCO2 POC VBG pO2 VBG HCO3 VBG O2 Sat (Felicia) VBG Base Excess Sodium Potassium Chloride Carbon Dioxide Anion Gap BUN Creatinine Creat Clearance w eGFR POC Glucometer 361 Random Glucose Lactic Acid 2.0 Calcium Magnesium Total Bilirubin Direct Bilirubin AST ALT Alkaline Phosphatase Ammonia Total Protein Albumin Total Amylase 63 Lipase 368 TSH Free T4 Urine Color Urine Appearance Urine pH Urine Protein Urine Glucose (UA) Urine Ketones Urine Blood Urine Nitrite Urine Bilirubin Urine Urobilinogen Ur Leukocyte Esterase HOSPITAL COURSE: Date of Admission:11/03/18 Date of Discharge: 11/04/18 Pre hospital course 68 year-old male with a [facility] signficant for CAD, Non-Hodgkins lymphoma, ascites s /p therapeutic paracenteses, Hep E, Kaposi sarcoma, and Type II NIDDM. Brought to ED today by reporting patient has been confused and altered for past 24 hours (staring, throwing odd things in garbage, trying to lift the entire toilet bowl off the floor). She suspects he has not been taking his Miralax for past several days. He has exhibited similar behavior in past when ammonia elevated. Hospitalized at [facility] x 2 weeks early September 2018 for low blood count, fluid build up, anemia, and hepatitis E. RSV August 2018 ER course (1) WBC 2.1 (2) Total bili 2.4, AST 52, Alk phos 200 (3) Lactic acid 3.0 Subsequent hospital course 68 year-old male with a [facility] signficant for CAD, non-Hodgkins lymphoma, Hep E, transaminitis, ascites s/p therapeutic paracenteses, Kaposi sarcoma, Type II NIDDM, and recurrent UTIs. Admitted for hepatic encephalopathy. Hepatic encephalopathy Transaminitis --has not had BM for several days and family observed altered, bizarre behavior --ammonia level elevated --start lactulose TID, titrate to 3-4 BMs per day --IV fluids --had 3BMs overnight and 3 this morning; mental status has improved --discussed with stock hanger/oncologist Dr. Sarath Duvall; he advised patient scheduled for TIPS next week Lactic acidosis, rsolved --lactic acid 3.0 on admission; treated with gentle IV fluids, improved to 2.0 on date of discharge --IV fluids Ascites --per , patient had significant lower extremity edema last week and Dr. Duvall told her to resume spironolactone/lasix --therapeutic paracentesis: 5L on 08/30/18; 2L on 10/11/18 Non-Hodgkins lymphoma Hepatitis E --on ribavirin Kaposi sarcoma Type II NIDDM --Novolog sliding scale coverage Minutes to complete discharge: 35 Discharge Summary Reason For Visit: INCREASED LATIC ACID LEVEL,HEPATIC ENCEPHALOPATHY Current Active Problems Elevated lactic acid level (Acute) Hepatic encephalopathy (Acute) Transient alteration of awareness (Acute) Condition: Improved - Instructions Diet, Activity, Other Instructions: Two prescriptions have been sent to your pharmacy. One is for levothyroxine/ synthroid which is an increased dose. The other is for lactulose. Take these medications as directed. Please follow up with your regular providers. Dr. Duvall is aware of your hospital stay. Return to the emergency department for any new or worsening symptoms. Referrals: Sarath Duvall MD [Staff Physician] - Disposition: HOME - Home Medications Comprehensive Discharge Medication List: Ambulatory Orders Aspirin [ASA -] 81 mg PO DAILY 06/07/14 Sitagliptin Phosphate [Januvia -] 100 mg PO DAILY@0700 #30 ud 10/11/17 Benzonatate 200 mg PO TID 10/08/18 Filgrastim [Neupogen] 480 mcg IJ DAILY 10/08/18 Furosemide [Lasix] 40 mg PO DAILY 10/08/18 Polyethylene Glycol 3350 [Miralax 119 gm Btl -] 0 gm PO DAILY 10/08/18 Ribavirin 400 mg PO AM 10/08/18 Ribavirin 600 mg PO HS 10/08/18 Valacyclovir HCl [Valtrex -] 500 mg PO DAILY 10/08/18 Phenazopyridine HCl [Pyridium] 200 mg PO TID PRN #21 tablet 10/15/18 Spironolactone [Aldactone] 100 mg PO DAILY 11/03/18 Lactulose (Oral Use) [Cephulac -] 20 gm PO TID #90 udc 11/04/18 Levothyroxine [Synthroid -] 112 mcg PO DAILY@0700 #30 tablet 11/04/18 This patient is new to me today: No Emergency Visit: Yes ED Registration Date: 11/03/18 Care time: The patient presented to the Emergency Department on the above date and was hospitalized for further evaluation of their emergent condition. Critical Care patient: No - Discharge Referral Referred to [facility] No
== END 2018-11-04 12:55 | disposition home or self-care (01) | DRG 442 ==
LOC: SUATTDRO 10:45 → FER 10:45 → FM/S 13:23
PROVIDERS: ATTEND Nurse Practitioner Acute Care
DX: K72.90 Hepatic failure, unspecified without coma (principal); E87.1 Hypo-osmolality and hyponatremia; E87.2 Acidosis; D61.818 Other pancytopenia; R18.8 Other ascites; C85.90 Non-Hodgkin lymphoma, unspecified, unspecified site; C46.0 Kaposi's sarcoma of skin; E11.9 Type 2 diabetes mellitus without complications; I25.10 Atherosclerotic heart disease of native coronary artery without angina pectoris; Z95.1 Presence of aortocoronary bypass graft; Z86.19 Personal history of other infectious and parasitic diseases; Z79.84 Long term (current) use of oral hypoglycemic drugs; E78.5 Hyperlipidemia, unspecified; Z87.891 Personal history of nicotine dependence
CPT/HCPCS: 36415; 70450-TC; 71045-TC-FY; 80048; 80053; 80076; 81003; 82140; 82150; 82550; 82803; 82962; 83605; 83690; 83735; 84439; 84443; 84481; 84484; 85025; 85610; 85730; 87040; 87086; 93005; 99284-25; J1644; J7030

== ENCOUNTER 2018-12-01 06:46 | Emergency (ER) | payer OTHER, MEDICARE ==
[2018-12-01 07:08] VITALS: BMI 24.0
--- NOTE | 2018-12-01 07:27 | PDOC ---
History of Present Illness - General Chief Complaint: Nasal Bleeding Stated Complaint: NOSE BLEED History Source: Patient Exam Limitations: No Limitations - History of Present Illness Initial Comments: 12/01/18 07:22 68 yo M with a hx of hepatitis E (ceased ribavarin within the past week; hx of ascites), Hodgkin's Lymphoma (started taxiol this past Wednesday), and CAD (s/p CABG) presents to the emergency department with nose bleed occurring at 4:30 am. Sudden onset atraumatic bleed. Described as bright red blood with clots coming out. Patient states he gets nosebleeds multiple times per year. He has been cauterized multiple times in the past by Dr. Villatoro his ENT physician. Deneis the following: fever, chills, SOB, chest pain, nausea, vomiting, lightheadedness, dysuria, hematuria, diarrhea, and hematochezia. Allergies: NKDA Past History - Past Medical History Allergies/Adverse Reactions: Allergies Allergy/AdvReac Type Severity Reaction Status Date / Time No Known Allergies Allergy Verified 12/01/18 07:08 Home Medications: Ambulatory Orders Aspirin [ASA -] 81 mg PO DAILY 06/07/14 Sitagliptin Phosphate [Januvia -] 100 mg PO DAILY@0700 #30 ud 10/11/17 Benzonatate 200 mg PO TID 10/08/18 Filgrastim [Neupogen] 480 mcg IJ DAILY 10/08/18 Furosemide [Lasix] 40 mg PO DAILY 10/08/18 Polyethylene Glycol 3350 [Miralax 119 gm Btl -] 0 gm PO DAILY 10/08/18 Ribavirin 400 mg PO AM 10/08/18 Ribavirin 600 mg PO HS 10/08/18 Valacyclovir HCl [Valtrex -] 500 mg PO DAILY 10/08/18 Phenazopyridine HCl [Pyridium] 200 mg PO TID PRN #21 tablet 10/15/18 Spironolactone [Aldactone] 100 mg PO DAILY 11/03/18 Lactulose (Oral Use) [Cephulac -] 20 gm PO TID #90 udc 11/04/18 Levothyroxine [Synthroid -] 112 mcg PO DAILY #30 tablet 11/04/18 Anemia: No Asthma: No Cancer: Yes (lymphoma NHL) Cardiac Disorders: Yes (CABG) CVA: No COPD: No CHF: No DVT: No Dementia: No Diabetes: Yes GI Disorders: Yes (GB) Disorders: No HTN: No Hypercholesterolemia: No Liver Disease: Yes (ACSCITES) Seizures: No Thyroid Disease: Yes - Surgical History Abdominal Surgery: Yes (UMBILICAL hernia repair) Cardiac Surgery: Yes (05/07 double bypass) Cholecystectomy: Yes Lung Surgery: (LYMP NODE REMOVED CHEST WALL) - Immunization History Td Vaccination: No TDAP Vaccination: No Immunization Up to Date: No - Suicide/Smoking/Psychosocial Hx Smoking History: Never smoked Have you smoked in the past 12 months: No Number of Cigarettes Smoked Daily: 0 If you are a former smoker, when did you quit?: 30 YEASR AGO Cigars Per Day: 0 Information on smoking cessation initiated: No Hx Alcohol Use: No Drug/Substance Use Hx: No Substance Use Type: None Hx Substance Use Treatment: No *Physical Exam - Vital Signs Last Vital Signs Temp Pulse Resp BP Pulse Ox 97.1 F L 86 17 140/57 L 100 12/01/18 07:05 12/01/18 07:05 12/01/18 07:05 12/01/18 07:05 12/01/18 07:05 - Physical Exam General Appearance: Yes: Nourished, Appropriately Dressed, Thin. No: Apparent Distress, Intoxicated HEENT: positive: EOMI, ERIKA, Normal Voice, Symmetrical *DC/Admit/Observation/Transfer - Discharge Dispostion Condition at time of disposition: Fair - Referrals Referrals: Jovany Rodriguez MD [Primary Care Provider] - - Patient Instructions - Post Discharge Activity
--- NOTE | 2018-12-01 07:31 | PDOC ---
History of Present Illness - General Chief Complaint: Nasal Bleeding Stated Complaint: NOSE BLEED History Source: Patient Exam Limitations: No Limitations - History of Present Illness Initial Comments: 68 yo M with a hx of hepatitis E (ceased ribavarin within the past week; hx of ascites), Hodgkin's Lymphoma (started taxiol this past Wednesday), and CAD (s/p CABG) presents to the emergency department with nose bleed occurring at 4:30 am. Sudden onset atraumatic bleed. Described as bright red blood with clots coming out. Patient states he gets nosebleeds multiple times per year. He has been cauterized multiple times in the past by Dr. Villatoro his ENT physician. Deneis the following: fever, chills, SOB, chest pain, nausea, vomiting, lightheadedness, dysuria, hematuria, diarrhea, and hematochezia. Allergies: NKDA Past History - Past Medical History Allergies/Adverse Reactions: Allergies Allergy/AdvReac Type Severity Reaction Status Date / Time No Known Allergies Allergy Verified 12/01/18 07:08 Home Medications: Ambulatory Orders Aspirin [ASA -] 81 mg PO DAILY 06/07/14 Sitagliptin Phosphate [Januvia -] 100 mg PO DAILY@0700 #30 ud 10/11/17 Benzonatate 200 mg PO TID 10/08/18 Filgrastim [Neupogen] 480 mcg IJ DAILY 10/08/18 Furosemide [Lasix] 40 mg PO DAILY 10/08/18 Polyethylene Glycol 3350 [Miralax 119 gm Btl -] 0 gm PO DAILY 10/08/18 Ribavirin 400 mg PO AM 10/08/18 Ribavirin 600 mg PO HS 10/08/18 Valacyclovir HCl [Valtrex -] 500 mg PO DAILY 10/08/18 Phenazopyridine HCl [Pyridium] 200 mg PO TID PRN #21 tablet 10/15/18 Spironolactone [Aldactone] 100 mg PO DAILY 11/03/18 Lactulose (Oral Use) [Cephulac -] 20 gm PO TID #90 udc 11/04/18 Levothyroxine [Synthroid -] 112 mcg PO DAILY #30 tablet 11/04/18 Amox-Tr/K Cl [Augmentin - 875Mg Tablet] 1 tab PO BID #14 tablet 12/01/18 Anemia: No Asthma: No Cancer: Yes (lymphoma NHL) Cardiac Disorders: Yes (CABG) CVA: No COPD: No CHF: No DVT: No Dementia: No Diabetes: Yes GI Disorders: Yes (GB) Disorders: No HTN: No Hypercholesterolemia: No Liver Disease: Yes (ACSCITES) Seizures: No Thyroid Disease: Yes - Surgical History Abdominal Surgery: Yes (UMBILICAL hernia repair) Cardiac Surgery: Yes (05/07 double bypass) Cholecystectomy: Yes Lung Surgery: (LYMP NODE REMOVED CHEST WALL) - Immunization History Td Vaccination: No TDAP Vaccination: No Immunization Up to Date: No - Suicide/Smoking/Psychosocial Hx Smoking History: Never smoked Have you smoked in the past 12 months: No Number of Cigarettes Smoked Daily: 0 If you are a former smoker, when did you quit?: 30 YEASR AGO Cigars Per Day: 0 Information on smoking cessation initiated: No Hx Alcohol Use: No Drug/Substance Use Hx: No Substance Use Type: None Hx Substance Use Treatment: No Review of Systems - Review of Systems Able to Perform ROS?: Yes Is the patient limited Greenlandic proficient: No Constitutional: Yes: Weakness. No: Chills, Diaphoresis, Fever HEENTM: No: Eye Pain, Recent change in vision, Ear Pain, Nose Pain, Throat Pain Respiratory: No: Cough, Shortness of Breath, Hemoptysis Cardiac (ROS): No: Chest Pain, Lightheadedness, Palpitations, Syncope, Chest Tightness ABD/GI: No: Constipated, Diarrhea, Nausea, Rectal Bleeding, Vomiting, Tarry Stools : No: Burning, Dysuria, Discharge, Incontinence, Pain Musculoskeletal: No: Back Pain, Joint Pain, Neck Pain Integumentary: Yes: Lesions (kaposi sarcoma). No: Bruising, Lumps Neurological: No: Headache, Numbness, Tingling, Tremors Psychiatric: No: Change in Appetite Endocrine: No: Unexplained Weight Loss Hematologic/Lymphatic: Yes: Easy Bleeding. No: Anemia *Physical Exam - Vital Signs Last Vital Signs Temp Pulse Resp BP Pulse Ox 97.1 F L 86 17 140/57 L 100 12/01/18 07:05 12/01/18 07:05 12/01/18 07:05 12/01/18 07:05 12/01/18 07:05 - Physical Exam General Appearance: Yes: Nourished, Appropriately Dressed, Thin. No: Apparent Distress HEENT: positive: EOMI, ERIKA, Normal Voice, Symmetrical, Pharynx Normal, Other ( anterior sepal bleed in right nostril. no active bleed dripping posteriorly in the oropharynx.). negative: Pale Conjunctivae, Scleral Icterus (R), Scleral Icterus (L), Muffled/Hoarse voice, Pharyngeal Erythema, Tonsillar Exudate, Tonsillar Erythema, Nasal Congestion Neck: positive: Trachea midline, Supple, Lymphadenopathy (R), Lymphadenopathy (L ). negative: Tender, Tender lateral, Tender midline Respiratory/Chest: positive: Lungs Clear, Normal Breath Sounds. negative: Chest Tender, Respiratory Distress, Accessory Muscle Use, Rales, Rhonchi, Stridor, Wheezing, Hyperresonant Cardiovascular: positive: Regular Rhythm, Regular Rate, S1, S2. negative: Systolic Murmur Gastrointestinal/Abdominal: positive: Normal Bowel Sounds, Flat, Soft. negative : Tender, Rebound, Tenderness Lymphatic: positive: Adenopathy Musculoskeletal: positive: Normal Inspection. negative: CVA Tenderness, Vertebral Tenderness Extremity: positive: Normal Capillary Refill, Normal Inspection, Normal Range of Motion. negative: Tender Integumentary: positive: Normal Color, Dry, Warm, Other (kaposi sarcoma loated in the left upper eye lid and right auricle of ear) Neurologic: positive: bias binding folder II-XII NML intact, Fully Oriented, Alert, Normal Mood/ Affect, Normal Response, Motor Strength 5/5. negative: Facial Droop, Numbness, Sensory Deficit, Finger to Nose ED Treatment Course - LABORATORY CBC & Chemistry Diagram: 12/01/18 08:57 Medical Decision Making - Medical Decision Making 68 yo M with a hx of hepatitis E (ceased ribavarin within the past week; hx of ascites), Hodgkin's Lymphoma (started taxiol this past Wednesday), and CAD (s/p CABG) presents to the emergency department with nose bleed occurring at 4:30 am. Initial vitals; Initial Vital Signs Temp Pulse Resp BP Pulse Ox 97.1 F L 86 17 140/57 L 100 12/01/18 07:05 12/01/18 07:05 12/01/18 07:05 12/01/18 07:05 12/01/18 07:05 Work up: ddx: anterior vs posterior nose bleed. On re-examination after the patient applied external pressure, a right anterior bleed was identified that was not actively bleeding. left nostril clear. the patient is going to be given gauze soaked in afrin. will order cbc and PT/INR given his status of hepatitis E with recent ribavarin use and on aspirin and taxiol. *DC/Admit/Observation/Transfer Diagnosis at time of Disposition: Epistaxis - Discharge Dispostion Disposition: HOME Condition at time of disposition: Fair Decision to Admit order: No - Prescriptions Prescriptions: Amox-Tr/K Cl [Augmentin - 875Mg Tablet] 1 tab PO BID #14 tablet - Referrals Referrals: Jovany Rodriguez MD [Primary Care Provider] - - Patient Instructions Printed Discharge Instructions: DI for Nosebleed Additional Instructions: please keep your appointment with the ENT physician for this Wednesday for removal. please return to the emergency department if you rebleed, have fevers, and the pain is intolerable. thank you. - Post Discharge Activity
[2018-12-01] MEDS ORDERED: OXYMETAZOLINE 0.05% NASAL SOLUTION 15 ML BOTTLE NS ONE (07:37)
[2018-12-01 09:19] LABS: BASO % 0.8 % (0-2.0); EOS % 0.8 % (0-4.5); HEMATOCRIT 26.8 % (35.4-49); HEMOGLOBIN 8.8 GM/dL (11.7-16.9); LYMPH % 8.8 % (8-40); MCH 39.1 pg (25.7-33.7); MCHC 32.8 g/dl (32.0-35.9); MEAN CELL VOLUME 119.3 fl (80-96); MEAN PLT VOLUME 7.9 fl (7.5-11.1); MONO % 23.6 % (3.8-10.2); PLATELET COUNT 124 K/MM3 (134-434); RBC 2.25 M/mm3 (4.00-5.60); RDW 16.7 % (11.9-15.9); WHITE BLOOD COUNT 7.2 K/mm3 (4.0-10.0)
[2018-12-01 09:29] LABS: INR 1.32 (0.83-1.09); PROTHROMBIN TIME (PATIENT) 15.6 SEC (9.7-13.0)
[2018-12-01] MEDS ORDERED: ACETAMINOPHEN 325 MG TABLET (FP) ONE (10:17)
[2018-12-01] MEDS ORDERED: IBUPROFEN 600 MG TABLET (FP) PO ONE (10:17)
--- NOTE | 2018-12-01 11:00 | PDOC ---
Attending Attestation - Resident Resident Name: Toni Rodriguez - ED Attending Attestation I have performed the following: I have examined & evaluated the patient, The case was reviewed & discussed with the resident, I agree w/resident's findings & plan - HPI HPI: 12/01/18 10:51 68-year-old male with history. Hodgkin's lymphoma and coronary artery disease on aspirin presents with family with nosebleed that began around 4 AM. Patient was in his usual state of health, started new chemotherapy regimen 9 days ago, has history of nosebleeds and presents now with atraumatic bleeding from his right naris. No airway compromise, no lightheadedness or syncope. - Physicial Exam PE: 12/01/18 10:54 Vital signs stable, alert without acute respiratory distress Upon arrival, had positive oozing from right naris, anterior septal lesion noted Oropharynx clear without swelling Lungs clear No petechiae or large ecchymosis - Medical Decision Making 12/01/18 10:55 68-year-old male with history of nosebleeds followed by Dr. Galloway of ENT now on new chemotherapy presents with atraumatic right epistaxis without airway compromise and hemodynamically stable. CBC and coags are at baseline, no new thrombocytopenia Afrin spray, Afrin-soaked gauze, bleeding resolved family at bedside, will monitor for any rebleeding, otherwise d/c to ENT f/u. understands return criteria 12/01/18 12:28 persistent epistaxis despite gauze/pressure. R sided rhinorocket placed without difficulty and with resolution of bleed. airway patent, oropharynx clear given rx for abx, has f/u already scheduled with ENT for Wednesday understands return criteria
[2018-12-01 11:28] LABS: ANISOCYTOSIS 1+; MACROCYTOSIS 0; OVALOCYTE 1+; PLATELET ESTIMATE DECREASED; TEAR DROP CELLS 1+
[2018-12-01] MEDS ORDERED: AMOX TR/POT CLAV 875MG/125MG TABLETS (FP) PO ONE (12:21)
[2018-12-01] MEDS ORDERED: AMOX TR/POT CLAV 875MG/125MG TABLETS (FP) ONE (12:22)
[2018-12-01 12:32] VITALS: BP 136/68; PULSE 84; TEMP 97.5
== END 2018-12-01 12:37 | disposition home or self-care (01) ==
LOC: JER 06:46
PROC: 2Y41X5Z Packing of Nasal Region using Packing Material (ICD-10-PCS; principal; 2018-12-01)
DX: R04.0 Epistaxis (principal); I25.10 Atherosclerotic heart disease of native coronary artery without angina pectoris; Z95.1 Presence of aortocoronary bypass graft; E11.9 Type 2 diabetes mellitus without complications; C81.70 Other Hodgkin lymphoma, unspecified site; Z79.4 Long term (current) use of insulin; Z79.82 Long term (current) use of aspirin; Z87.19 Personal history of other diseases of the digestive system
CPT/HCPCS: 36415; 85025; 85610; 85730; 99282-25

== ENCOUNTER 2019-01-28 14:00 | Inpatient (IN) | payer OTHER, MEDICARE ==
--- NOTE | 2019-01-28 15:19 | PDOC ---
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 States he thought there was a wart to the finger. Used topical wart freezing medication and was picking at the wound. States it opened and drained lots of fluid yesterday. States yesterday there was redness from the PIP across the MCP up the back of the hand. After drainage, the redness receded back and only covers from PIP to MCP. Swelling of the finger. No flexor tendon ttp or pain. FROM of the joint. Warmth to the finger and the hand. No drainage from the wound at this time. Onc: Dr. Duvall PMD: Dr. rodriguez Past History - Past Medical History Allergies/Adverse Reactions: Allergies Allergy/AdvReac Type Severity Reaction Status Date / Time No Known Allergies Allergy Verified 01/28/19 14:07 Home Medications: Ambulatory Orders Aspirin [ASA -] 81 mg PO DAILY 06/07/14 Sitagliptin Phosphate [Januvia -] 100 mg PO DAILY@0700 #30 ud 10/11/17 Filgrastim [Neupogen] 480 mcg IJ DAILY 10/08/18 Furosemide [Lasix] 20 mg PO DAILY 10/08/18 Polyethylene Glycol 3350 [Miralax 119 gm Btl -] 17 gm PO DAILY 10/08/18 Valacyclovir HCl [Valtrex -] 500 mg PO DAILY 10/08/18 Spironolactone [Aldactone] 100 mg PO DAILY 11/03/18 Lactulose (Oral Use) [Cephulac -] 20 gm PO TID #90 udc 11/04/18 Levothyroxine [Synthroid -] 112 mcg PO DAILY #30 tablet 11/04/18 Anemia: No Asthma: No Cancer: Yes (lymphoma NHL, kaposi's sarcoma) Cardiac Disorders: Yes (CABG) CVA: No COPD: No CHF: No DVT: No Dementia: No Diabetes: Yes GI Disorders: Yes (GB) Disorders: No HTN: No Hypercholesterolemia: No Liver Disease: Yes (ACSCITES) Seizures: No Thyroid Disease: Yes - Surgical History Abdominal Surgery: Yes (UMBILICAL hernia repair) Cardiac Surgery: Yes (05/07 double bypass) Cholecystectomy: Yes Lung Surgery: (LYMP NODE REMOVED CHEST WALL) - Immunization History Td Vaccination: No TDAP Vaccination: No Immunization Up to Date: No - Suicide/Smoking/Psychosocial Hx Smoking History: Former smoker Have you smoked in the past 12 months: No Number of Cigarettes Smoked Daily: 0 If you are a former smoker, when did you quit?: 30 YEASR AGO Cigars Per Day: 0 Information on smoking cessation initiated: No Hx Alcohol Use: No Drug/Substance Use Hx: No Substance Use Type: None Hx Substance Use Treatment: No Review of Systems - Review of Systems Able to Perform ROS?: Yes Is the patient limited Czech proficient: No Constitutional: No: Chills, Fever HEENTM: No: Nose Pain, Throat Pain, Throat Swelling Respiratory: No: Cough, Shortness of Breath Cardiac (ROS): No: Chest Pain, Palpitations ABD/GI: No: Diarrhea, Nausea, Vomiting, Abdominal cramping Musculoskeletal: Yes: Joint Swelling. No: Back Pain, Muscle Pain Integumentary: Yes: Change in Color, Erythema, Rash, Other (wound L volar aspect of the middle finger with surrounding redness and warmth) Neurological: No: Headache, Numbness, Paresthesia, Tingling, Tremors, Weakness, Ataxia All Other Systems: Reviewed and Negative *Physical Exam - Vital Signs Last Vital Signs Temp Pulse Resp BP Pulse Ox 98.4 F 80 16 105/55 L 97 01/28/19 14:00 01/28/19 14:00 01/28/19 14:00 01/28/19 14:00 01/28/19 14:00 - Physical Exam General Appearance: Yes: Nourished, Appropriately Dressed. No: Apparent Distress HEENT: positive: EOMI, Normal Voice Neck: positive: Supple Respiratory/Chest: positive: Lungs Clear, Normal Breath Sounds. negative: Respiratory Distress Cardiovascular: positive: Regular Rhythm, Regular Rate, S1, S2 Gastrointestinal/Abdominal: positive: Soft. negative: Guarding, Rebound, Tenderness Musculoskeletal: positive: Normal Inspection. negative: CVA Tenderness Extremity: positive: Normal Capillary Refill, Normal Range of Motion, Other (L hand middle finger on dorsum side- redness from PIP to MCP, warmth, swelling, open wound over the joint, FROM of the joint, no ttp along the flexor tendon, no drainage from the wound, no lymphangitic spread at this time) Integumentary: positive: Other (cellulitis with redness and warmth to L hand middle digit) Neurologic: positive: Fully Oriented, Alert, Motor Strength 5/5 Heart Score/ECG Review - ECG Intrepretation Comment:: 01/28/19 17:50 sinus at 74, nl axis, q waves inferior leads which are age indeterminate, t wave inversions inferior leads, no acute st segment changes ED Treatment Course - LABORATORY CBC & Chemistry Diagram: 01/28/19 15:00 01/28/19 15:00 - RADIOLOGY Radiology Studies Ordered: Category Date Time Status HAND- LEFT [RAD] Stat Radiology 01/28/19 14:53 Taken Medical Decision Making - Medical Decision Making 01/28/19 15:19 a/p: 68 you male with L hand middle finger infection and swelling -redness and open wound concerning for cellulitis of the dorsum of the hand -on nuepogen and scheduled for chemo with dr. duavll on wednesday -finger cellulitis -on active chemo, will send labs, cultures -will start abx -will discuss with dr. duvall pending labs -xray hand 01/28/19 16:00 no acute findings on xray no elevated wbc call placed to dr. duvall and dr. rodriguez 01/28/19 16:[address] hendricks covering dr. duvall and dr rodriguez both agree with iv abx and admission given active chemo hx 01/28/19 17:58 case discussed with Capri Ferraro who accepts pt to service *DC/Admit/Observation/Transfer Diagnosis at time of Disposition: Cellulitis of hand, left - Discharge Dispostion Condition at time of disposition: Guarded Decision to Admit order: Yes - Referrals Referrals: Jovany Rodriguez MD [Primary Care Provider] - - Patient Instructions - Post Discharge Activity
[2019-01-28 15:37] LABS: HEMOGLOBIN 8.9 GM/dl (11.7-16.9); MEAN CELL VOLUME 104.8 fl (80-96); PLATELET COUNT 134 K/MM3 (134-434)
[2019-01-28 15:40] LABS: HEMATOCRIT 26.6 % (35.4-49); MCH 35.2 pg (25.7-33.7); MCHC 33.6 g/dl (32.0-35.9); MEAN PLT VOLUME 7.5 fl (7.5-11.1); RBC 2.54 M/mm3 (4.00-5.60); RDW 16.2 % (11.9-15.9)
[2019-01-28] MEDS ORDERED: CEFTRIAXONE 1 GM in DEXTROSE 5%-WATER - 100 ML IVPB ONE (15:41)
[2019-01-28] MEDS ORDERED: VANCOMYCIN 1 GM in D5W (PRE-DOCKED) 1,000 MG/250 ML IVPB ONE (15:42)
[2019-01-28] MEDS ORDERED: SODIUM CHLORIDE 0.9% 1000 ML INFUS.BAG IV ONE (15:42)
[2019-01-28] MEDS ORDERED: VANCOMYCIN 1,000 MG VIAL (RESTRICTED TO ID ONLY) ONE (15:43)
[2019-01-28] MEDS ORDERED: cefTRIAXone SODIUM 1 GM VIAL ONE (15:43)
[2019-01-28 15:45] LABS: ALBUMIN 3.3 g/dl (3.4-5.0); CALCIUM 8.2 mg/dl (8.5-10); CREATININE 1.4 mg/dl (0.55-1.3); POTASSIUM 4.5 mmol/L (3.5-5.1); TOT PROT 5.3 g/dl (6.4-8.2)
[2019-01-28 15:55] LABS: PLATELET ESTIMATE ADEQUATE
--- NOTE | 2019-01-28 18:43 | HP ---
CHIEF COMPLAINT: Left middle finger wound PCP: Dr. Rodriguez Oncology: Dr. Duvall HISTORY OF PRESENT ILLNESS: 68 year-old male with a PMH signficant for CAD, Type II NIDDM. non-Hodgkins lymphoma (in remission), ascites s/p multiple therapeutic paracenteses, Hep E, and Kaposi's sarcoma presently on chemotherapy. Patient presented to the ED for evaluation of redness, swelling, and an open wound to his left middle finger. Patient thought there was a wart on his finger and he used topical wart freezing medication. He also picked at it. Yesterday the wound opened up and there was fluid drainage. There was redness from the PIP across the MCP up the back of the hand. After drainage, the redness receded somewhat. In the ED, there was swelling, warmth, and erythema from PIP to MCP. ED course notable for: (1) afebrile, WBC 5.0k (2) Cr 1.4 (3) Xray: no acute changes (4) Ceftriaxone x 1; Vanc x 1; NS x 1L Recent Travel: No PAST MEDICAL HISTORY: Coronary artery disease Non Hodgkins lymphoma (diagnosed 2004) Hepatitis E Transaminitis Ascites Kaposi's sarcoma Type II NIDDM Recurrent UTIs (08/2018, 09/2018) PAST SURGICAL HISTORY: Coronary bypass Umbilical hernia repair Cholecystectomy 2013 Social History: Smoking: quit 30 years ago Alcohol: no Drugs: no Family History: mother age 92, DM father age 86, COPD, was a smoker brother s/p CABG in his 60s Allergies No Known Allergies Allergy (Verified 01/28/19 14:07) Home Medications Medication Instructions Recorded Aspirin [ASA -] 81 mg PO DAILY 06/07/14 Sitagliptin Phosphate [Januvia -] 100 mg PO DAILY@0700 #30 ud 10/11/17 Filgrastim [Neupogen] 480 mcg IJ DAILY 10/08/18 Furosemide [Lasix] 20 mg PO DAILY 10/08/18 Polyethylene Glycol 3350 [Miralax 17 gm PO DAILY 10/08/18 119 gm Btl -] Valacyclovir HCl [Valtrex -] 500 mg PO DAILY 10/08/18 Spironolactone [Aldactone] 100 mg PO DAILY 11/03/18 Lactulose (Oral Use) [Cephulac -] 20 gm PO TID #90 udc 11/04/18 Levothyroxine [Synthroid -] 112 mcg PO DAILY #30 tablet 11/04/18 REVIEW OF SYSTEMS CONSTITUTIONAL: Absent: fever, chills, diaphoresis, generalized weakness, malaise, loss of appetite, weight change HEENT: Absent: rhinorrhea, nasal congestion, throat pain, throat swelling, difficulty swallowing, mouth swelling, ear pain, eye pain, visual changes CARDIOVASCULAR: Absent: chest pain, syncope, palpitations, irregular heart rate, lightheadedness , peripheral edema RESPIRATORY: Absent: cough, shortness of breath, dyspnea with exertion, orthopnea, wheezing, stridor, hemoptysis GASTROINTESTINAL: Absent: abdominal pain, abdominal distension, nausea, vomiting, diarrhea, constipation, melena, hematochezia GENITOURINARY: Absent: dysuria, frequency, urgency, hesitancy, hematuria, flank pain, genital pain MUSCULOSKELETAL: Absent: myalgia, arthralgia, joint swelling, back pain, neck pain SKIN: +redness, warmth, drainage from left middle finger Absent: rash, itching, pallor HEMATOLOGIC/IMMUNOLOGIC: Absent: easy bleeding, easy bruising, lymphadenopathy, frequent infections ENDOCRINE: Absent: unexplained weight gain, unexplained weight loss, heat intolerance, cold intolerance NEUROLOGIC: Absent: headache, focal weakness or paresthesias, dizziness, unsteady gait, seizure, mental status changes, bladder or bowel incontinence PSYCHIATRIC: Absent: anxiety, depression, suicidal or homicidal ideation, hallucinations. PHYSICAL EXAMINATION Vital Signs - 24 hr 01/28/19 01/28/19 14:00 18:04 Temperature 98.4 F 98.5 F Pulse Rate 80 Pulse Rate [ 73 Left Apical] Respiratory 16 18 Rate Blood Pressure 105/55 L Blood Pressure 106/56 L [Right Arm] O2 Sat by Pulse 97 100 Oximetry (%) GENERAL: Awake, alert, and fully oriented, in no acute distress. LUNGS: Breath sounds equal, clear to auscultation bilaterally. No wheezes, and no crackles. No accessory muscle use. HEART: Regular rate and rhythm, S1 and S2 ABDOMEN: Soft, nontender, not distended UPPER EXTREMITIES: 2+ pulses, warm, well-perfused. No cyanosis. No clubbing. No peripheral edema. LEFT middle finger erythema, swelling, open wound over the joint LOWER EXTREMITIES: 2+ pulses, warm, well-perfused. No calf tenderness. No peripheral edema. NEUROLOGICAL: Cranial nerves II-XII intact. Normal speech. Normal gait. PSYCHIATRIC: Cooperative. Good eye contact. Appropriate mood and affect. SKIN: Kaposi's lesions Laboratory Results - last 24 hr 01/28/19 01/28/19 15:00 15:00 WBC 5.0 RBC 2.54 L Hgb 8.9 L Hct 26.6 L MCV 104.8 H MCH 35.2 H MCHC 33.6 RDW 16.2 H Plt Count 134 MPV 7.5 Absolute Neuts (auto) 3.4 Neutrophils % No Result Required. Neutrophils % (Manual) 61.0 Band Neutrophils % 7.0 Lymphocytes % No Result Required. Lymphocytes % (Manual) 28.0 D Monocytes % (Manual) 4 Platelet Estimate Adequate Sodium 135 L Potassium 4.5 Chloride 108 H Carbon Dioxide 23 Anion Gap 4 L BUN 25.0 H Creatinine 1.4 H Est GFR (CKD-EPI)AfAm 58.58 Est GFR (CKD-EPI)NonAf 50.54 Random Glucose 184 H Calcium 8.2 L Total Bilirubin 1.0 AST 51 H ALT 21 Alkaline Phosphatase 168 H D Total Protein 5.3 L Albumin 3.3 L ASSESSMENT/PLAN: 68 year-old male with a H signficant for CAD, Type II NIDDM. non-Hodgkins lymphoma, ascites s/p multiple therapeutic paracenteses, Hep E, and Kaposi's sarcoma presently on chemotherapy and neupogen. Admitted for left middle finger cellulitis. Left middle finger cellulitis --ceftriaxone and vanc started in ED, will continue --wound and blood cultures pending --topical wound care --ID consult Non-Hodgkins lymphoma Kaposi sarcoma --presently on chemo; continue filgrastim, valacyclovir --WBC 5k, ANC 3400 --follows with Dr. Duvall Elevated Creatinine --Cr 1.4 on admission, baseline ~1.1 --IV fluids Ascites --stable Hepatitis E Type II NIDDM --Novolog sliding scale coverage FEN Fluids: NS@50mL/hr x 24 hours Electrolytes: replete as indicated Nutrition: diabetic diet DVT prophylaxis: subq heparin Dispo: continues to require inpatient care. Full code. Visit type - Emergency Visit Emergency Visit: Yes ED Registration Date: 01/28/19 Care time: The patient presented to the Emergency Department on the above date and was hospitalized for further evaluation of their emergent condition. - New Patient This patient is new to me today: Yes Date on this admission: 01/29/19 - Critical Care Critical Care patient: No
[2019-01-28 19:03] VITALS: BMI 26.2
[2019-01-28] MEDS ORDERED: SODIUM CHLORIDE 1,000 ML IV SCH (20:00)
[2019-01-28] MEDS: HEPARIN NA (PORCINE) 5,000 UNITS/ML 1ML VIAL SQ SCH (21:50)
[2019-01-28] MEDS: LACTULOSE 20 GM/30 ML UDC (FOR ORAL USE ONLY) PO SCH (21:50)
[2019-01-28] MEDS: INSULIN SLIDING SCALE (NOVOLOG) 1 VIAL SQ SCH (21:50)
[2019-01-28] MEDS ORDERED: INSULIN (NOVOLOG) ASPART 100 UNITS/ML 10ML VIAL ONE (21:58)
[2019-01-29] MEDS: VANCOMYCIN HCL 1,250 MG in DEXTROSE 5%-WATER - 250 ML IVPB SCH ×2 (03:31→15:01)
[2019-01-29] MEDS ORDERED: VANCOMYCIN 1 GM in D5W (PRE-DOCKED) 1,000 MG/250 ML IVPB SCH (04:00)
[2019-01-29] MEDS: LACTULOSE 20 GM/30 ML UDC (FOR ORAL USE ONLY) PO SCH ×2 (06:19→13:26)
[2019-01-29] MEDS: INSULIN SLIDING SCALE (NOVOLOG) 1 VIAL SQ SCH ×3 (06:20→16:48)
[2019-01-29] MEDS: HEPARIN NA (PORCINE) 5,000 UNITS/ML 1ML VIAL SQ SCH ×2 (06:28→13:26)
[2019-01-29] MEDS ORDERED: LEVOTHYROXINE NA 112 MCG TABLET (FP) PO SCH ×3 (07:00→10:00)
[2019-01-29 09:45] LABS: EOS % 2.3 % (0-4.5); HEMATOCRIT 27.5 % (35.4-49); HEMOGLOBIN 8.9 GM/dl (11.7-16.9); LYMPH % 23.5 % (8-40); MCH 33.7 pg (25.7-33.7); MCHC 32.4 g/dl (32.0-35.9); MEAN PLT VOLUME 7.5 fl (7.5-11.1); MONO % 17.9 % (3.8-10.2); NEUT % 55.3 % (42.8-82.8); PLATELET COUNT 134 K/MM3 (134-434); RBC 2.64 M/mm3 (4.00-5.60); RDW 16.5 % (11.9-15.9); WHITE BLOOD COUNT 3.4 K/mm3 (4.0-10.8)
[2019-01-29 09:55] LABS: ALBUMIN 3.1 g/dl (3.4-5.0); BILIRUBIN,TOTAL 0.9 mg/dl (0.2-1); CALCIUM 8.4 mg/dl (8.5-10); MAGNESIUM 1.8 mg/dL (1.8-2.4); POTASSIUM 4.4 mmol/L (3.5-5.1)
[2019-01-29] MEDS ORDERED: valACYclovir HCL 500 MG TABLET (FP) PO SCH (10:00)
[2019-01-29] MEDS ORDERED: POLYETHYLENE GLYCOL 3350 119 GM BTL PO SCH (10:00)
[2019-01-29] MEDS ORDERED: FUROSEMIDE 40 MG TABLET (FP) PO SCH (10:00)
[2019-01-29] MEDS ORDERED: ASPIRIN 81 MG CHEWABLE TABLETS PO SCH (10:00)
[2019-01-29] MEDS ORDERED: SPIRONOLACTONE 25 MG TABLET (FP) PO SCH (10:00)
[2019-01-29] MEDS ORDERED: CEFTRIAXONE 1 G/50 ML PREMIX 50 ML IVPB SCH (10:00)
[2019-01-29] MEDS ORDERED: TBO-FILGRASTIM 480 MCG/0.8 ML DISP.SYRIN SQ SCH (10:00)
[2019-01-29 10:28] VITALS: PULSE 71
[2019-01-29] MEDS ORDERED: INSULIN (NOVOLOG) ASPART 100 UNITS/ML 10ML VIAL ONE (11:17)
--- NOTE | 2019-01-29 12:03 | CON.ID ---
Consult - History of Present Illness History of Present Illness: 68 y.o. male with PMH of NIDDM, CAD s/p CABG, Kaposi's Sarcoma on chemotherapy, Non-Hodgkins Lymphoma in remission, HLD, hypothyroidism, Hep E, Ascites presents with c/o Lt 3rd prox digit erythema/edema/tenderness which began 3 days ago. States it began with a tiny lesion. The erythema and edema began to spread to knuckle region and . Pt believed it was a wart and put topical freezing medication but then picked at the site and had small amount of drainage. After this the swelling and erythema began to improve and area of redness began to recede. He denies fever/chills or any other complaints. In the ER was begun on Ceftriaxone/Vancomycin and states Lt finger swelling and erythema has improved and he has no further pain. - History Source History Provided By: Patient Limitations to Obtaining History: No Limitations - Past Medical History Cardio/Vascular: Yes: CAD (s/p bypass last year and stents x2), Hyperlipdemia Pulmonary: Yes: Cancer (NHL) Gastrointestinal: Yes: Other (Cholecystitis, transamonitis - eval'd by hepatology (lymphoma infiltration entertained)) Heme/Onc: Yes: Other (NonHodgkins, Kaposi's sarcoma) Endocrine: Yes: Hypothyroidism Dermatology: Yes: Other ([place]-Kaposi) - Past Surgical History Past Surgical History: Yes: CABG, Hernia Repair (umbillical), Stent - Alcohol/Substance Use Hx Alcohol Use: No History of Substance Use: reports: None - Smoking History Smoking history: Former smoker Have you smoked in the past 12 months: No Aproximately how many cigarettes per day: 0 If you are a former smoker, when did you quit?: 30 YEASR AGO - Social History ADL: Independent History of Recent Travel: No Home Medications - Allergies Allergies/Adverse Reactions: Allergies Allergy/AdvReac Type Severity Reaction Status Date / Time No Known Allergies Allergy Verified 01/28/19 14:07 - Home Medications Home Medications: Ambulatory Orders Aspirin [ASA -] 81 mg PO DAILY 06/07/14 Sitagliptin Phosphate [Januvia -] 100 mg PO DAILY@0700 #30 ud 10/11/17 Filgrastim [Neupogen] 480 mcg IJ DAILY 10/08/18 Furosemide [Lasix] 20 mg PO DAILY 10/08/18 Polyethylene Glycol 3350 [Miralax 119 gm Btl -] 17 gm PO DAILY 10/08/18 Valacyclovir HCl [Valtrex -] 500 mg PO DAILY 10/08/18 Spironolactone [Aldactone] 100 mg PO DAILY 11/03/18 Lactulose (Oral Use) [Cephulac -] 20 gm PO TID #90 udc 11/04/18 Levothyroxine [Synthroid -] 112 mcg PO DAILY #30 tablet 11/04/18 Clindamycin HCl 150 mg PO TID #15 capsule 01/29/19 Clindamycin HCl [Cleocin HCl] 300 mg PO TID #15 capsule 01/29/19 Review of Systems - Review of Systems Constitutional: reports: No Symptoms Eyes: reports: No Symptoms HENT: reports: No Symptoms Neck: reports: No Symptoms Cardiovascular: reports: No Symptoms Respiratory: reports: No Symptoms Gastrointestinal: reports: No Symptoms Genitourinary: reports: No Symptoms Breasts: reports: No Symptoms Reported Musculoskeletal: reports: No Symptoms Integumentary: reports: Erythema (Lt 3rd finger erythema/swelling/mild tenderness) Neurological: reports: No Symptoms Endocrine: reports: No Symptoms Hematology/Lymphatic: reports: No Symptoms Psychiatric: reports: No Symptoms Physical Exam Vital Signs: Vital Signs Temperature 98.0 F 01/29/19 10:28 Pulse Rate 71 01/29/19 10:28 Respiratory Rate 10 01/29/19 10:28 Blood Pressure 104/57 L 01/29/19 10:28 O2 Sat by Pulse Oximetry (%) 98 01/29/19 06:28 Constitutional: Yes: No Distress, Calm Eyes: Yes: Conjunctiva Clear HENT: Yes: Atraumatic Neck: Yes: Supple Cardiovascular: Yes: Regular Rate and Rhythm Respiratory: Yes: Regular Gastrointestinal: Yes: Normal Bowel Sounds, Soft Renal/: Yes: WNL Integumentary: Yes: Erythema (Lt 3rd finger PIP region mild erythema with extension up to knuckle (improving) / minimal edema (improving) / no purulence/ no tenderness/ +FROM) Wound/Incision: Yes: Other (tiny wound with minimal sanguinous drainage) Neurological: Yes: Alert, Oriented Labs: CBC, BMP 01/29/19 09:30 01/29/19 09:30 Imaging - Results X-ray: Report Reviewed Problem List - Problems (1) Cellulitis of hand, left Code(s): L03.114 - CELLULITIS OF LEFT UPPER LIMB (2) DM type 2 (diabetes mellitus, type 2) Code(s): E11.9 - TYPE 2 DIABETES MELLITUS WITHOUT COMPLICATIONS Qualifiers: Diabetes mellitus middle or intermediate school principal insulin use: without detention use (3) Dyslipidemia Code(s): E78.5 - HYPERLIPIDEMIA, UNSPECIFIED (4) HTN (hypertension) Code(s): I10 - ESSENTIAL (PRIMARY) HYPERTENSION (5) Hx of CABG Code(s): Z95.1 - PRESENCE OF AORTOCORONARY BYPASS GRAFT (6) Kaposi sarcoma Code(s): C46.9 - KAPOSI'S SARCOMA, UNSPECIFIED (7) Non-Hodgkin lymphoma Code(s): C85.90 - NON-HODGKIN LYMPHOMA, UNSPECIFIED, UNSPECIFIED SITE Assessment/Plan 68 y.o. male with PMH of DM, CAD s/p CABG, NonHodgkins Lymphoma in remission, Kaposi's Sarcoma currently on chemotherapy, ascites, Hep E, hypothyroidism presenting with development of Lt 3rd finger erythema/swelling/tenderness that began 3 days ago and began extending to MCP region Lt finger cellulitis -- Pt with significant improvement of erythema/edema, no tenderness at this time /without purulence/induration -- Xray results noted -- may switch to Clindamycin po x at least 5 more days as discussed after next dose of Vancomycin, d/c Ceftriaxone -- Pt to f/u with PMD to monitor for continued improvement
--- NOTE | 2019-01-29 13:13 | DS ---
Physical Exam: SUBJECTIVE: Patient seen and examined OBJECTIVE: Vital Signs Period Temp Pulse Resp BP Sys/[place] Pulse Ox Last 24 Hr 98.0 F-98.9 F 69-80 10-19 100-114/43-59 97-100 PHYSICAL EXAM GENERAL: The patient is awake, alert, and fully oriented, in no acute distress. HEAD: Normal with no signs of trauma. EYES: PERRL, extraocular movements intact, sclera anicteric, conjunctiva clear. ENT: Ears normal, nares patent, oropharynx clear without exudates, moist mucous membranes. NECK: Trachea midline, full range of motion, supple. LUNGS: Breath sounds equal, clear to auscultation bilaterally, no wheezes, no crackles, no accessory muscle use. HEART: Regular rate and rhythm, S1, S2 without murmur, rub or gallop. ABDOMEN: Soft, nontender, nondistended, normoactive bowel sounds, no guarding, no rebound, no hepatosplenomegaly, no masses. EXTREMITIES: 2+ pulses, warm, well-perfused, no edema. Left middle finger (PIP area) lesion with mild redness/serous drainage. NEUROLOGICAL: Cranial nerves II through XII grossly intact. Normal speech, gait not observed. PSYCH: Normal mood, normal affect. SKIN: Warm, dry, normal turgor, no rashes or lesions noted. LABS Laboratory Results - last 24 hr 01/28/19 01/28/19 01/28/19 15:00 15:00 21:20 WBC 5.0 RBC 2.54 L Hgb 8.9 L Hct 26.6 L MCV 104.8 H MCH 35.2 H MCHC 33.6 RDW 16.2 H Plt Count 134 MPV 7.5 Absolute Neuts (auto) 3.4 Neutrophils % No Result Required. Neutrophils % (Manual) 61.0 Band Neutrophils % 7.0 Lymphocytes % No Result Required. Lymphocytes % (Manual) 28.0 D Monocytes % Monocytes % (Manual) 4 Eosinophils % Basophils % Platelet Estimate Adequate Sodium 135 L Potassium 4.5 Chloride 108 H Carbon Dioxide 23 Anion Gap 4 L BUN 25.0 H Creatinine 1.4 H Est GFR (CKD-EPI)AfAm 58.58 Est GFR (CKD-EPI)NonAf 50.54 POC Glucometer 166 Random Glucose 184 H Calcium 8.2 L Magnesium Total Bilirubin 1.0 AST 51 H ALT 21 Alkaline Phosphatase 168 H D Total Protein 5.3 L Albumin 3.3 L 01/29/19 01/29/19 01/29/19 06:17 09:30 09:30 WBC 3.4 L RBC 2.64 L Hgb 8.9 L Hct 27.5 L MCV 104.0 H MCH 33.7 MCHC 32.4 RDW 16.5 H Plt Count 134 MPV 7.5 Absolute Neuts (auto) 1.9 Neutrophils % 55.3 D Neutrophils % (Manual) Band Neutrophils % Lymphocytes % 23.5 D Lymphocytes % (Manual) Monocytes % 17.9 H Monocytes % (Manual) Eosinophils % 2.3 Basophils % 1.0 Platelet Estimate Sodium 136 Potassium 4.4 Chloride 107 Carbon Dioxide 21 Anion Gap 8 BUN 19.0 H Creatinine 1.0 Est GFR (CKD-EPI)AfAm 87.99 Est GFR (CKD-EPI)NonAf 75.92 POC Glucometer 123 Random Glucose 129 H Calcium 8.4 L Magnesium 1.8 Total Bilirubin 0.9 AST 48 H ALT 20 Alkaline Phosphatase 114 D Total Protein 5.0 L Albumin 3.1 L 01/29/19 11:12 WBC RBC Hgb Hct MCV MCH MCHC RDW Plt Count MPV Absolute Neuts (auto) Neutrophils % Neutrophils % (Manual) Band Neutrophils % Lymphocytes % Lymphocytes % (Manual) Monocytes % Monocytes % (Manual) Eosinophils % Basophils % Platelet Estimate Sodium Potassium Chloride Carbon Dioxide Anion Gap BUN Creatinine Est GFR (CKD-EPI)AfAm Est GFR (CKD-EPI)NonAf POC Glucometer 216 Random Glucose Calcium Magnesium Total Bilirubin AST ALT Alkaline Phosphatase Total Protein Albumin HOSPITAL COURSE: Date of Admission:01/28/19 Date of Discharge: 01/29/19 This is a 68 year-old male with a [facility] signficant for CAD,Type II NIDDM. non- Hodgkins lymphoma (in remission), ascites s/p multiple therapeutic paracenteses , Hep E, and Kaposi's sarcoma presently on chemotherapy. Patient presented to the ED for evaluation of redness, swelling, and an open wound to his left middle finger. Patient thought there was a wart on his finger and he used topical wart freezing medication.Admitted with left middle finger cellulitis. Hand X'ray revealed no acute changes. Pt was started on ceftriaxone and Vanc wit improvement. Remains afebrile with no leukocytosis. Culture reports pending. Pt requesting discharge. Pt was seen by , switched to Clindamycin 450mg TID for 5 more days to complete the course and out pt followup. *Non-Hodgkins lymphoma,Kaposi sarcoma: Pt presently on chemo; follows with Dr. Duvall,will continue filgrastim, valacyclovir *Elevated Creatinine:Cr 1.4 on admission, baseline ~1.1, pt received IV hydration, cre level normalized. --IV fluids *Ascites-stable *Hepatitis E *Type II NIDDM: BS stable, will cont on home meds Minutes to complete discharge: 40 Discharge Summary Reason For Visit: CELLULITIS OF LEFT HAND Current Active Problems Cellulitis of hand, left (Acute) Condition: Stable - Instructions Diet, Activity, Other Instructions: Diabetic and Heart Healthy Diet. For any worsening pain, swelling, redness or fever, advised to call Dr. Rodriguez. Referrals: Sarath Duvall MD [Staff Physician] - (as scheduled ) Jovany Rodriguez MD [Primary Care Provider] - 1 Week Disposition: HOME - Home Medications Comprehensive Discharge Medication List: Ambulatory Orders Aspirin [ASA -] 81 mg PO DAILY 06/07/14 Sitagliptin Phosphate [Januvia -] 100 mg PO DAILY@0700 #30 ud 10/11/17 Filgrastim [Neupogen] 480 mcg IJ DAILY 10/08/18 Furosemide [Lasix] 20 mg PO DAILY 10/08/18 Polyethylene Glycol 3350 [Miralax 119 gm Btl -] 17 gm PO DAILY 10/08/18 Valacyclovir HCl [Valtrex -] 500 mg PO DAILY 10/08/18 Spironolactone [Aldactone] 100 mg PO DAILY 11/03/18 Lactulose (Oral Use) [Cephulac -] 20 gm PO TID #90 udc 11/04/18 Levothyroxine [Synthroid -] 112 mcg PO DAILY #30 tablet 11/04/18 Clindamycin HCl 150 mg PO TID #15 capsule 01/29/19 Clindamycin HCl [Cleocin HCl] 300 mg PO TID #15 capsule 01/29/19 This patient is new to me today: Yes Date on this admission: 01/29/19 Emergency Visit: Yes ED Registration Date: 01/28/19 Care time: The patient presented to the Emergency Department on the above date and was hospitalized for further evaluation of their emergent condition. Critical Care patient: No - Discharge Referral Referred to [facility] No
--- NOTE | 2019-01-29 13:53 | EKG ---
Test Reason : Blood Pressure : / mmHG Vent. Rate : 074 BPM Atrial Rate : 074 BPM P-R Int : 132 ms QRS Dur : 084 ms QT Int : 420 ms P-R-T Axes : 000 005 008 degrees QTc Int : 466 ms NORMAL SINUS RHYTHM T WAVE ABNORMALITY, CONSIDER INFERIOR ISCHEMIA ABNORMAL ECG Confirmed by MD ABHINAV, NICOLE ([id number]) on 01/29/2019 1:53:16 PM Referred By: TIKI BOSE Confirmed By:NICOLE LA MD
[2019-01-29 15:07] VITALS: BP 104/49; TEMP 98.2
[2019-01-30] MEDS ORDERED: VANCOMYCIN 1,250 MG in DEXTROSE 5%-WATER - 250 ML IVPB SCH (04:00)
== END 2019-01-29 17:38 | disposition home or self-care (01) | DRG 603 ==
LOC: FER 14:00 → FM/S 16:48
PROVIDERS: ATTEND Nurse Practitioner Family
DX: L03.012 Cellulitis of left finger (principal); C46.7 Kaposi's sarcoma of other sites; B17.2 Acute hepatitis E; R18.8 Other ascites; R74.0 Nonspecific elevation of levels of transaminase and lactic acid dehydrogenase [LDH]; E03.9 Hypothyroidism, unspecified; E11.9 Type 2 diabetes mellitus without complications; E78.5 Hyperlipidemia, unspecified; I25.10 Atherosclerotic heart disease of native coronary artery without angina pectoris; Z85.72 Personal history of non-Hodgkin lymphomas; Z95.1 Presence of aortocoronary bypass graft
CPT/HCPCS: 36415; 73130-TC-LT-FY; 80053; 82962; 83735; 85025; 87040; 87070; 87186; 87205; 93005; 99283-25; J1447; J1644; J7030